=== PATIENT | female | born 1990 | race Caucasian/White ===

== ENCOUNTER → 2021-02-06 10:12 | Outpatient (CLI) | payer OTHER, BC, SELFPAY ==
--- NOTE | ~2021-02-06 | US_ITS ---
EXAMINATION: US thyroid DATE: 02/06/2021 10:31 INDICATION: Nontoxic goiter TECHNIQUE: Multiple ultrasound images of the thyroid were obtained. COMPARISON: None. FINDINGS: The right thyroid lobe measures 4.7 x 1.2 x 1.4 cm. The left thyroid lobe measures 4.3 x 1.2 x 1.8 c m. 1.6 cm solid very hypoechoic nodule in the mid left thyroid which is wider than tall with smooth margins and without echogenic foci. (TI-RADS 4, moderately suspicious , FNA if >=1.5 cm, annual follo wup is >=1 cm). There is diffuse decreased echogenicity and coarsened echotexture throughout the thyr oid with normal vascular flow on color Doppler. IMPRESSION: 1. 1.6 cm TI RADS 4 left thyroid nodule for which ultrasound-guided fine-needle aspiration would be r ecommended. Reviewed, dictated and finalized at location A. TH AND PHYSICAL EDUCATION TEACHER IMPRESSION: 1. 1.6 cm TI RADS 4 left thyroid nodule for which ultrasound-guided fine-needle aspiration would be recommended.
== END ==
PROVIDERS: Visit Provider Internal Medicine Endocrinology, Diabetes & Metabolism
DX: E04.1 Nontoxic single thyroid nodule (principal)
CPT/HCPCS: 76536

== ENCOUNTER → 2021-08-22 15:37 | Outpatient (CLI) | payer OTHER, BC, SELFPAY ==
--- NOTE | ~2021-08-22 | US_ITS ---
EXAMINATION: US transvaginal DATE: 08/22/2021 16:04 INDICATION: Irregular periods. Comparison:No prior studies for comparison. TECHNIQUE: Multiple endovaginal sonographic images of the pelvis performed. FINDINGS: The uterus measures 6.2 x 3 x 3.6 cm. Uterus is retroverted uterus. The endometrial complex measures 3 mm. The right ovary measures 3.1 x 1.9 x 3.3 cm and the left ovary measures 2.4 x 1.8 x 2.4 cm. There ar e small follicles in each ovary. Normal doppler signal in both ovaries. There is no free fluid in the pelvis. There are no abnormal masses seen on either side. IMPRESSION: 1. Unremarkable pelvic ultrasound. Reviewed, dictated and finalized at location A.
== END ==
PROVIDERS: PCP Student in an Organized Health Care Education/Training Program; Visit Provider Internal Medicine Endocrinology, Diabetes & Metabolism
DX: N92.6 Irregular menstruation, unspecified (principal)
CPT/HCPCS: 76830

== ENCOUNTER 2022-01-06 11:58 | Emergency (ER) | payer OTHER, BC, SELFPAY ==
[2022-01-06 12:58] VITALS: BP 138/89; PULSE 85; RESP 18; TEMP 36.7; O2SAT 99
--- NOTE | 2022-01-06 13:25 | ED.URI ---
HPI - URI/Sore Throat General Chief Complaint: Upper Respiratory Infection Stated Complaint: Cough, Sore Throat Time Seen by Provider: 01/06/22 13:25 Source: patient and RN notes reviewed Mode of arrival: ambulatory Limitations: no limitations History of Present Illness HPI Narrative: 31-year-old female presenting for complaint of sinus congestion, cough, and mild sore throat over the last week. She endorses fever at the onset. She denies shortness of breath, wheezing, nausea, vomiting, diarrhea. She is taking [id number] medication for symptoms with minimal relief. MD elicited complaint: cough Related Data Home Medications Medication Instructions Recorded Confirmed cholecalciferol (vitamin D3) 50 50 mcg DAILY 01/06/22 01/06/22 mcg (2,000 unit) capsule (Vitamin D3) cyanocobalamin (vitamin B-12) 1,000 mcg WEEKLY 01/06/22 01/06/22 1,000 mcg/mL injection solution folic acid 1 mg tablet 1 mg PO DAILY 01/06/22 01/06/22 metformin 500 mg tablet,extended 500 mg PO BID 01/06/22 01/06/22 release 24 hr norethindrone 1 mg-ethinyl 1 tablet DAILY 01/06/22 01/06/22 estradiol 10 mcg (24)-iron 10 mcg(2) tablet (Lo Loestrin Fe) omeprazole 20 mg capsule,delayed 20 mg DAILY 01/06/22 01/06/22 release sertraline 50 mg tablet 50 mg DAILY 01/06/22 01/06/22 spironolactone 50 mg tablet 50 mg BID 01/06/22 01/06/22 Allergies Allergy/AdvReac Type Severity Reaction Status Date / Time No Known Allergies Allergy Verified 01/06/22 13:04 Review of Systems Review of Systems: CONSTITUTIONAL: Denies malaise, chills, sweats, fever EYES: Denies visual changes, redness, or discharge ENT: Reports rhinorrhea, congestion, sinus pain, sore throat CARDIOVASCULAR: Denies chest pain, palpitations, edema RESPIRATORY: Reports cough, post nasal drainage. Denies dyspnea GASTROINTESTINAL: Denies abdominal pain, nausea, vomiting, diarrhea SKIN: Denies rash or itching MUSCULOSKELETAL: Denies myalgia PMF Family History Family History Grandparent Family history of thyroid disease Family history of lung cancer Family history of malignant neoplasm of breast Family history of congestive heart failure Family history of heart disease in male family member before age 55 Mother Depression Other Family history of malignant neoplasm of male breast Social History Social History Smoking status: Never smoker Alcohol intake: current Exam Narrative: GENERAL: Ill-appearing, nontoxic EYES: PERRLA, conjunctivae clear ENT: Mucous membranes moist. TMs pearly vera with dull light reflex bilaterally; no tragal tenderness. Oropharynx erythematous without lesions or exudate, no drooling, no hoarseness, no trismus, uvula midline. NECK: Supple. No lymphadenopathy CHEST: Clear to auscultation, breath sounds equal. No wheezing, rhonchi, rales, or stridor. No respiratory distress, speaks in full sentences. HEART: Regular rate and rhythm. No murmur heard. SKIN: Warm, dry, no rash. NEURO: Alert and oriented x3. PSYCH: Normal mood and affect Course Course Emergency Course: Patient is aware of diagnosis, understands and agrees to treatment plan. Anticipatory guidance given. Patient agrees to follow-up as directed and is aware of reasons to seek care at the emergency department. Portions of this record may have been created with voice recognition software Level of Care: Express Care Visit Vital Signs Vital signs: Vital Signs Temperature 98.0 F 01/06/22 12:58 Pulse Rate 85 01/06/22 12:58 Respiratory Rate 18 01/06/22 12:58 Blood Pressure 138/89 01/06/22 12:58 Pulse Oximetry 99 01/06/22 12:58 Oxygen Delivery Room Air 01/06/22 12:58 Temperature 98.0 F 01/06/22 12:58 Pulse Rate 85 01/06/22 12:58 Respiratory Rate 18 01/06/22 12:58 Blood Pressure 138/89 01/06/22 12:58 Pulse Oximetry 99
== END 2022-01-06 13:40 | disposition home or self-care (01) ==
PROVIDERS: Emergency Provider Nurse Practitioner Family; PCP Student in an Organized Health Care Education/Training Program
DX: J06.9 Acute upper respiratory infection, unspecified (principal)
CPT/HCPCS: 99213; G0463

== ENCOUNTER 2022-01-26 18:49 | Emergency (ER) | payer OTHER, BC, SELFPAY ==
--- NOTE | 2022-01-26 18:55 | ED.URI ---
HPI - URI/Sore Throat General Chief Complaint: Upper Respiratory Infection Stated Complaint: uri Time Seen by Provider: 01/26/22 18:55 Source: patient, RN notes reviewed and old records reviewed Mode of arrival: ambulatory Limitations: no limitations History of Present Illness HPI Narrative: 31-year-old female presents to the [facility] with complaints of sinus congestion since Friday, 3 days. Has taken Mucinex. Denies fevers, chest pain, abdominal pain Related Data Home Medications Medication Instructions Recorded Confirmed cholecalciferol (vitamin D3) 50 50 mcg DAILY 01/06/22 01/26/22 mcg (2,000 unit) capsule (Vitamin D3) cyanocobalamin (vitamin B-12) 1,000 mcg WEEKLY 01/06/22 01/26/22 1,000 mcg/mL injection solution folic acid 1 mg tablet 1 mg PO DAILY 01/06/22 01/26/22 metformin 500 mg tablet,extended 500 mg PO BID 01/06/22 01/26/22 release 24 hr norethindrone 1 mg-ethinyl 1 tablet DAILY 01/06/22 01/26/22 estradiol 10 mcg (24)-iron 10 mcg(2) tablet (Lo Loestrin Fe) omeprazole 20 mg capsule,delayed 20 mg DAILY 01/06/22 01/26/22 release sertraline 50 mg tablet 50 mg DAILY 01/06/22 01/26/22 spironolactone 50 mg tablet 50 mg BID 01/06/22 01/26/22 levothyroxine 100 mcg tablet 100 mcg PO DAILY 01/26/22 01/26/22 (Synthroid) Allergies Allergy/AdvReac Type Severity Reaction Status Date / Time No Known Allergies Allergy Verified 01/26/22 18:54 Review of Systems Review of Systems: All systems reviewed & are unremarkable except as noted in HPI and below Constitutional: Constitutional: Reports no additional constitutional complaints Eyes: Eyes: Reports no additional eye complaints ENT: Reports as per HPI and Reports nasal congestion Cardiovascular: Cardiovascular: Reports no additional cardiovascular complaints, Denies chest pain and Denies dyspnea Respiratory: Respiratory: Reports no additional respiratory complaints, Denies chest congestion, Denies cough and Denies dyspnea Gastrointestinal: Gastrointestinal: Reports no additional gastrointestinal complaints, Denies abdominal pain, Denies nausea and Denies vomiting Musculoskeletal: Musculoskeletal: Reports no additional musculoskeletal complaints Integumentary/Breasts: Skin/Breast: Reports system reviewed and no additional complaints, except as docu Neurologic: Reports system reviewed and no additional complaints, except as documented Psychiatric: Psychiatric: Reports no additional psychiatric complaints Allergic/Immunologic: Allergic/Immunologic: Reports no additional allergic/immunologic complaints PMFSH Family History Family History Grandparent Family history of thyroid disease Family history of lung cancer Family history of malignant neoplasm of breast Family history of congestive heart failure Family history of heart disease in male family member before age 55 Mother Depression Other Family history of malignant neoplasm of male breast Social History Social History Smoking status: Never smoker Alcohol intake: current Comments At the time of my signature, I reviewed and agree with the nursing past medical, surgical, social, and family history. There is no relevant family history pertinent to the patient complaint. Exam Const: General: cooperative, healthy appearing, comfortable, no acute distress, well developed, alert and well nourished Nutritional Appearance: well nourished and obese Orientation/consciousness: patient oriented x3 Limitations: no limitations HENMT: Head: normal to inspection Ears: hearing grossly normal bilaterally, external ears normal, EAC's normal and TM abnormal with fluid behind the TM bilateral; not erythematous Face/Nose/Sinus: Normal external nose present, Normal nares present, Normal nasal mucous membranes and turbinates present and normal facial exam Face and sinus: gordon
[2022-01-26 18:57] VITALS: BP 131/84; PULSE 107; RESP 16; TEMP 36.6; O2SAT 99
[2022-01-26 18:59] VITALS: BP 131/84; PULSE 107; RESP 16; TEMP 36.6; O2SAT 99
== END 2022-01-26 19:17 | disposition home or self-care (01) ==
PROVIDERS: Emergency Provider Nurse Practitioner; PCP Student in an Organized Health Care Education/Training Program
DX: J06.9 Acute upper respiratory infection, unspecified (principal); J01.90 Acute sinusitis, unspecified; K21.9 Gastro-esophageal reflux disease without esophagitis; E03.9 Hypothyroidism, unspecified; E28.2 Polycystic ovarian syndrome; F41.9 Anxiety disorder, unspecified; F32.A Depression, unspecified
CPT/HCPCS: 99213; G0463

== ENCOUNTER → 2022-07-27 11:22 | Outpatient (CLI) | payer OTHER, BC, SELFPAY ==
--- NOTE | ~2022-07-27 | US_ITS ---
US thyroid INDICATION: Thyroid nodule. Dane's thyroiditis. TECHNIQUE: Real-time sonographic images of the thyroid gland were obtained. COMPARISON: Ultrasound dated 02/06/2021 FINDINGS: The right thyroid lobe measures 3.6 x 1.5 x 1.9 cm. The left thyroid lobe measures 3.6 x 1 .7 x 1.6 cm. There is normal echotexture and echogenicity throughout the thyroid gland. There is a le ft thyroid lobe nodule which is solid, hypoechoic, wider than tall, circumscribed margins and no echo genic foci measuring 11 x 11 x 9 mm, TR 4. This is decreased in size compared with prior study. Brit l vascular flow is present. IMPRESSION: 1. Left thyroid mass measures 11 mm, TR 4. Follow-up ultrasound in 12 months recommended. Reviewed, dictated and finalized at location A. IMPRESSION: 1. Left thyroid mass measures 11 mm, TR 4. Follow-up ultrasound in 12 months r ecommended.
== END ==
PROVIDERS: PCP Internal Medicine Endocrinology, Diabetes & Metabolism; Visit Provider Internal Medicine Endocrinology, Diabetes & Metabolism
DX: E04.1 Nontoxic single thyroid nodule (principal)
CPT/HCPCS: 76536

== ENCOUNTER 2022-12-11 09:13 | Emergency (ER) | payer OTHER, BC, SELFPAY ==
--- NOTE | 2022-12-11 09:27 | ED.EYEPROB ---
HPI - Eye Problem General Chief complaint: Eye Problems Stated complaint: Eyes Irritation Time Seen by Provider: 12/11/22 09:28 Source: patient Mode of arrival: ambulatory Limitations: no limitations History of Present Illness HPI Narrative: Michelle is a 32-year-old female patient presenting to the clinic today with complaints of bilateral eye irritation. She reports symptoms just started this morning. Reports that her son and her both have pinkeye at home. Reports she woke up this morning with her eyes matted shut with some green drainage. Eyes are irritated. Visual acuity completed and was 20/20. She denies using contacts Related Data Home Medications Medication Instructions Recorded Confirmed cholecalciferol (vitamin D3) 50 50 mcg DAILY 01/06/22 01/26/22 mcg (2,000 unit) capsule (Vitamin D3) cyanocobalamin (vitamin B-12) 1,000 mcg WEEKLY 01/06/22 01/26/22 1,000 mcg/mL injection solution folic acid 1 mg tablet 1 mg PO DAILY 01/06/22 01/26/22 metformin 500 mg tablet,extended 500 mg PO BID 01/06/22 01/26/22 release 24 hr norethindrone 1 mg-ethinyl 1 tablet DAILY 01/06/22 01/26/22 estradiol 10 mcg (24)-iron 10 mcg(2) tablet (Lo Loestrin Fe) omeprazole 20 mg capsule,delayed 20 mg DAILY 01/06/22 01/26/22 release sertraline 50 mg tablet 50 mg DAILY 01/06/22 01/26/22 spironolactone 50 mg tablet 50 mg BID 01/06/22 01/26/22 levothyroxine 100 mcg tablet 100 mcg PO DAILY 01/26/22 01/26/22 (Synthroid) Allergies Allergy/AdvReac Type Severity Reaction Status Date / Time No Known Allergies Allergy Verified 01/26/22 18:54 Review of Systems Review of Systems: Pertinent positives per HPI. Patient denies any fever, chills, rash, headache, visual changes, dizziness, cough, runny nose, sore throat, shortness of breath, chest pain, palpitations, nausea, vomiting, diarrhea, constipation, abdominal pain, or any urinary issues. [facility] Family History Family History Grandparent Family history of thyroid disease Family history of lung cancer Family history of malignant neoplasm of breast Family history of congestive heart failure Family history of heart disease in male family member before age 55 Mother Depression Other Family history of malignant neoplasm of male breast Social History Social History Smoking status: Never smoker Alcohol intake: current Comments At the time of my signature, I reviewed and agree with the nursing past medical, surgical, social, and family history. There is no relevant family history pertinent to the patient complaint. Exam Narrative: General: Well-developed, well nourished, in no apparent distress Head: Normocephalic, atraumatic Eyes: Pupils equally round and reactive to light bilaterally, EOM intact, sclera and conjunctive injected with green mucopurulent discharge, lids normal Ears: TMs intact and clear, ear canals clear, no drainage, grossly hearing normal. Nose: Nares patent, no discharge, no inflammation, no sinus tenderness. Mouth: Oropharynx without lesions or masses, good dentition, MMM. Neck: Supple, trachea midline, no enlargement of anterior or posterior cervical nodes, no thyroid masses or goiter palpable. Cardio: Regular rate and rhythm, s1 and s2 normal, no murmur appreciated. Resp: Clear to auscultation bilaterally anteriorly and posteriorly, no rhonchi, rales, wheezing or rubs Course Course Emergency Course: Portions of this record may have been created with voice recognition software. Level of Care: Express Care Visit Vital Signs Vital signs: Vital signs reviewed MDM - Eye Problem MDM Narrative Medical decision making narrative: At the time of visit patient is resting comfortably on the exam table. I suspect patient has bacterial conjunctivitis. Prescription for tobramycin eyedrops was sent to th
[2022-12-11 09:28] VITALS: BP 128/77; PULSE 78; RESP 16; TEMP 36.9; O2SAT 99
== END 2022-12-11 09:35 | disposition home or self-care (01) ==
PROVIDERS: Emergency Provider Nurse Practitioner Family; PCP Student in an Organized Health Care Education/Training Program
DX: H10.9 Unspecified conjunctivitis (principal)
CPT/HCPCS: 99213; G0463

== ENCOUNTER 2023-09-15 15:13 | Emergency (ER) | payer OTHER, BC, SELFPAY ==
[2023-09-15 15:27] VITALS: BP 135/84; PULSE 110; RESP 16; TEMP 36.7; O2SAT 99
--- NOTE | 2023-09-15 15:48 | ED.URI ---
HPI - URI/Sore Throat General Chief Complaint: Upper Respiratory Infection Stated Complaint: head pressure,Vásquez,cough Time Seen by Provider: 09/15/23 15:38 Source: patient and RN notes reviewed Mode of arrival: ambulatory Limitations: no limitations History of Present Illness HPI Narrative: Patient presents today with a 2 day history of nasal congestion and sinus pressure, headache, cough, sore throat, chest congestion. Denies fever shortness of breath. Currently rates her pain 4/10 and has tried Sudafed, Tylenol, and Excedrin without much relief. Denies any known sick contacts. Related Data Home Medications Medication Instructions Recorded Confirmed cholecalciferol (vitamin D3) 50 50 mcg DAILY 01/06/22 09/15/23 mcg (2,000 unit) capsule (Vitamin D3) cyanocobalamin (vitamin B-12) 1,000 mcg WEEKLY 01/06/22 09/15/23 1,000 mcg/mL injection solution folic acid 1 mg tablet 1 mg PO DAILY 01/06/22 09/15/23 metformin 500 mg tablet,extended 500 mg PO BID 01/06/22 09/15/23 release 24 hr norethindrone 1 mg-ethinyl 1 tablet DAILY 01/06/22 09/15/23 estradiol 10 mcg (24)-iron 10 mcg(2) tablet (Lo Loestrin Fe) omeprazole 20 mg capsule,delayed 20 mg DAILY 01/06/22 09/15/23 release sertraline 50 mg tablet 50 mg DAILY 01/06/22 09/15/23 spironolactone 50 mg tablet 50 mg BID 01/06/22 09/15/23 levothyroxine 100 mcg tablet 100 mcg PO DAILY 01/26/22 09/15/23 (Synthroid) Allergies Allergy/AdvReac Type Severity Reaction Status Date / Time No Known Allergies Allergy Verified 01/26/22 18:54 Review of Systems Review of Systems: CONSTITUTIONAL: Denies body aches, fever, chills, or sweats. EYES: Denies visual changes, redness, or discharge. ENT: Denies rhinorrhea, or otalgia.+ congestion, sore throat CARDIOVASCULAR: Denies chest pain, palpitations, or edema. RESPIRATORY: Denies dyspnea.+ cough, chest congestion GASTROINTESTINAL: Denies abdominal pain, nausea, vomiting, or diarrhea. GENITOURINARY: Denies dysuria or hematuria. SKIN: Denies rash, itching, or wounds. MUSCULOSKELETAL: Denies back pain, joint pain, or myalgia. NEUROLOGIC: Denies numbness, tingling, or weakness.+ headache PSYCH: Denies depression or anxiety. [facility] Family History Family History Grandparent Family history of thyroid disease Family history of lung cancer Family history of malignant neoplasm of breast Family history of congestive heart failure Family history of heart disease in male family member before age 55 Mother Depression Other Family history of malignant neoplasm of male breast Social History Social History Smoking status: Never smoker Alcohol intake: current Comments At time of signature, I have reviewed and agree with nursing past medical, surgical, social and family history unless otherwise noted. Please see nursing chart for further information. There is no relevant family history pertinent to the presenting complaint Exam Narrative: GENERAL: Mildly ill-appearing, well-nourished, and in no acute distress. HEAD: Normocephalic, atraumatic. EYES: EOMI. No redness or drainage. Conjunctivae normal. ENT: Mucous membranes pink and moist. Nares congested with rhinorrhea. TMs normal bilaterally. Throat normal. Uvula midline. NECK: Normal AROM. Supple. No lymphadenopathy. CHEST: No respiratory distress. Clear to auscultation. HEART: Regular rate and rhythm. No murmur appreciated. EXTREMITIES: Normal range of motion. No edema. SKIN: Warm, dry, no rash. Capillary refill normal. Normal skin turgor. NEURO: No focal deficits. Alert and oriented x3. Gait steady. PSYCH: Normal affect. No signs of depression or anxiety. Course Course Level of Care: Express Care Visit Vital Signs Vital signs: Vital Signs Temperature 98.0 F 09/15/23 15:27 Pulse Rate 110 H 09/15/23 15:27 Resp
[2023-09-15 15:53] LABS: EDINFLUASCREEN Negative; EDINFLUBSCREEN Negative
[2023-09-15 16:01] LABS: EDSTREPNEGPOS1 Presumptive Negative
== END 2023-09-15 16:19 | disposition home or self-care (01) ==
PROVIDERS: Emergency Provider Nurse Practitioner; PCP Student in an Organized Health Care Education/Training Program
DX: J06.9 Acute upper respiratory infection, unspecified (principal); Z20.822 Contact with and (suspected) exposure to COVID-19; K21.9 Gastro-esophageal reflux disease without esophagitis; E03.9 Hypothyroidism, unspecified; E28.2 Polycystic ovarian syndrome; Z98.84 Bariatric surgery status; F41.9 Anxiety disorder, unspecified; F32.A Depression, unspecified
CPT/HCPCS: 87081; 87426; 87804; 87880; 99213; G0463

== ENCOUNTER 2023-12-06 10:08 | Emergency (ER) | payer OTHER, BC, SELFPAY ==
[2023-12-06 10:16] VITALS: BP 125/89; PULSE 94; RESP 20; TEMP 36.6; O2SAT 98
--- NOTE | 2023-12-06 10:26 | ED_ITS ---
HPI - URI/Sore Throat General Chief Complaint: Upper Respiratory Infection Stated Complaint: Sore throat Time Seen by Provider: 12/06/23 10:27 Source: patient, RN notes reviewed and old records reviewed Mode of arrival: ambulatory Limitations: no limitations History of Present Illness HPI Narrative: Patient with complaints of sore throat for 3 days, worsening. She reports that she has been taking TheraFlu, ibuprofen. She denies any fever, chills, sweats, runny nose, headache, cough. 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 Her 5-year-old daughter has also been sick. Patient has hoarse voice. Reports that pain is much worse with swallowing. Says she is having difficulty swallowing secondary to pain. She is managing own secretions, no drooling or stridor noted. Related Data Home Medications Medication Instructions Recorded Confirmed cholecalciferol (vitamin D3) 50 50 mcg DAILY 01/06/22 12/06/23 mcg (2,000 unit) capsule (Vitamin D3) cyanocobalamin (vitamin B-12) 1,000 mcg IM WEEKLY 01/06/22 12/06/23 1,000 mcg/mL injection solution folic acid 1 mg tablet 1 mg PO DAILY 01/06/22 12/06/23 metformin 500 mg tablet,extended 500 mg PO BID 01/06/22 12/06/23 release 24 hr norethindrone 1 mg-ethinyl 1 tablet PO DAILY 01/06/22 12/06/23 estradiol 10 mcg (24)-iron 10 mcg(2) tablet (Lo Loestrin Fe) omeprazole 20 mg capsule,delayed 20 mg PO DAILY 01/06/22 12/06/23 release sertraline 50 mg tablet 50 mg DAILY 01/06/22 12/06/23 spironolactone 50 mg tablet 50 mg PO BID 01/06/22 12/06/23 levothyroxine 100 mcg tablet 100 mcg PO DAILY 01/26/22 12/06/23 (Synthroid) phentermine 30 mg capsule 30 mg PO DAILY 12/06/23 12/06/23 tacrolimus 0.1 % topical ointment 0.1 applic topical DAILY 12/06/23 12/06/23 Allergies Allergy/AdvReac Type Severity Reaction Status Date / Time No Known Allergies Allergy Verified 12/06/23 10:09 Review of Systems Review of Systems: All systems reviewed & are unremarkable except as noted in HPI and below Constitutional: Constitutional: Reports no additional constitutional complaints ENT: Reports system reviewed and no additional complaints, except as documented, Reports as per HPI, Reports change in voice and Reports sore throat Cardiovascular: Cardiovascular: Reports no additional cardiovascular complaints Respiratory: Respiratory: Reports no additional respiratory complaints Gastrointestinal: Gastrointestinal: Reports no additional gastrointestinal complaints PMF Family History Family History Grandparent Family history of thyroid disease Family history of lung cancer Family history of malignant neoplasm of breast Family history of congestive heart failure Family history of heart disease in male family member before age 55 Mother Depression Other Family history of malignant neoplasm of male breast Social History Social History Smoking status: Never smoker Alcohol intake: current Comments At the time of my signature, I reviewed and agree with the nursing past medical, surgical, social, and family history. There is no relevant family history pertinent to the patient complaint. Exam Const: General: cooperative, no acute distress, alert and awake Orientation/consciousness: oriented to person, oriented to place and oriented to time HENMT: Head: normal to inspection Ears: TM's normal bilaterally Face/Nose/Sinus: No nasal discharge present Throat: posterior oropharynx abnormal erythema and tonsils absent Resp: Effort & Inspection: normal respiratory effort and able to speak in complete sentences Auscultation: clear to auscultation bilaterally, no crackles, no rales, no rhonchi and no wheezes Cardio: Palpation: normal PMI Rate: regular rate Rhythm: regular rhythm Heart sounds: S1 normal heart sound present and S2 normal heart sound present Neuro: General: oriented to person, oriented to place and oriented to time Cranial nerves: Yes CN's II-XII intact bilaterally Psych: Appearance: grossly normal Thought process: Normal thought process present Insight: Good insight present (Psych) Judgement: Good judgement pr esent (Psych) Course Course Level of Care: Express Care Visit Vital Signs Vital signs: Vital Signs Temperature 97.9 F 12/06/23 10:16 Pulse Rate 94 12/06/23 10:16 Respiratory Rate 20 12/06/23 10:16 Blood Pressure 125/89 12/06/23 10:16 Pulse Oximetry 98 12/06/23 10:16 Oxygen Delivery Room Air 12/06/23 10:16 Temperature 97.9 F 12/06/23 10:16 Pulse Rate 94 12/06/23 10:16 Respiratory Rate 20 12/06/23 10:16 Blood Pressure 125/89 12/06/23 10:16 Pulse Oximetry 98 12/06/23 10:16 Oxygen Delivery Room Air 12/06/23 10:16 Reviewed MDM - URI/Sore Throat MDM Narrative Medical decision making narrative: Patient not in any acute distress, and is nontoxic appearing, but she does appear very uncomfortable. Throat very red. No blisters noted. She has been trying [id number] remedies with no relief. Will start short steroid burst to see if this gives her relief. Follow with primary care provider. Emergency department for new or worsening symptoms. Her strep today was negative culture pending. Discharge instructions reviewed with patient, as well as provided in writing per nursing staff. The instructions also include specific and strict return/GO TO THE ER as well as f/u information. All questions have been answered, and the patient deny any further questions with discharge and discharge plan. Some parts of this dictation were generated by voice recognition software and may contain typographical and/or grammatical inaccuracies. Differential Diagnosis Differential diagnosis: Likely upper respiratory infection, otitis media, viral infection and pharyngitis Lab Data Attestation: I reviewed the patient's lab results. Lab results narrative: Negative strep, culture pending Discharge Plan Discharge Clinical Impression: Viral infection Patient Disposition: Home, Self-Care Condition: Stable Instructions: Antibiotic Form, Viral Syndrome (ED) Additional Instructions: Push fluids, get plenty of rest. Take medications as prescribed. Follow with primary care provider. Emergency department for new or worse symptoms Patient Language: Algerian Prescriptions: New prednisone 50 mg tablet 50 mg PO DAILY Qty: 5 0RF No Action cyanocobalamin (vitamin B-12) 1,000 mcg/mL solution 1,000 mcg IM WEEKLY omeprazole 20 mg capsule,delayed release(DR/EC) 20 mg PO DAILY folic acid 1 mg Tablet 1 mg PO DAILY metformin 500 mg tablet extended release 24 hr 500 mg PO BID sertraline 50 mg tablet 50 mg DAILY spironolactone 50 mg tablet 50 mg PO BID cholecalciferol (vitamin D3) [Vitamin D3] 50 mcg (2,000 unit) capsule 50 mcg DAILY Lo Loestrin Fe 1 mg-10 mcg (24)/10 mcg (2) tablet 1 tablet PO DAILY phentermine 30 mg capsule 30 mg PO DAILY tacrolimus 0.1 % ointment 0.1 applic TOPICAL DAILY levothyroxine [Synthroid] 100 mcg tablet 100 mcg PO DAILY Follow-up/Referrals: Joel,Gretta Martell MD [Primary Care Provider] - 1 Week Time of Disposition: 10:46
[2023-12-06 10:35] LABS: EDSTREPNEGPOS1 Negative (Negative)
== END 2023-12-06 10:50 | disposition home or self-care (01) ==
PROVIDERS: Emergency Provider Nurse Practitioner Family; PCP Internal Medicine Endocrinology, Diabetes & Metabolism
DX: B34.9 Viral infection, unspecified (principal); Z79.899 Other long term (current) drug therapy; Z79.84 Long term (current) use of oral hypoglycemic drugs
CPT/HCPCS: 87081; 87880; 99213; G0463

== ENCOUNTER 2024-03-20 17:57 | Emergency (ER) | payer OTHER, SELFPAY ==
[2024-03-20 18:10] VITALS: BP 140/84; PULSE 102; RESP 16; TEMP 36.7; O2SAT 99
--- NOTE | 2024-03-20 18:15 | ED_ITS ---
HPI - URI/Sore Throat General Chief Complaint: Upper Respiratory Infection Stated Complaint: sore throat,achy,FRAIRE Time Seen by Provider: 03/20/24 18:15 Source: patient, RN notes reviewed and old records reviewed Mode of arrival: ambulatory Limitations: no limitations History of Present Illness HPI Narrative: Patient presents with complaints of sore throat, headache, body aches. She reports symptoms have been present for 3 days. 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 Reports that her current symptoms feel like her typical strep throat. She has been taking o igs-bii-qwmuudk medications for her symptoms with moderate relief. Able to manage her own secretions, no drooling or stridor Related Data Home Medications ?Medication ?Instructions ?Recorded ?Confirmed ?Last Taken ?Type cholecalciferol (vitamin D3) 50 50 mcg DAILY 01/06/22 12/06/23 Unknown History mcg (2,000 unit) capsule (Vitamin D3) cyanocobalamin (vitamin B-12) 1,000 mcg IM WEEKLY 01/06/22 12/06/23 Unknown History 1,000 mcg/mL injection solution folic acid 1 mg tablet 1 mg PO DAILY 01/06/22 12/06/23 Unknown History metformin 500 mg tablet,extended 500 mg PO BID 01/06/22 12/06/23 Unknown History release 24 hr omeprazole 20 mg capsule,delayed 20 mg PO DAILY 01/06/22 12/06/23 Unknown Histor y release sertraline 50 mg tablet 50 mg DAILY 01/06/22 12/06/23 Unknown History spironolactone 50 mg tablet 50 mg PO BID 01/06/22 12/06/23 Unknown History levothyroxine 100 mcg tablet 100 mcg PO DAILY 01/26/22 12/06/23 Unknown History (Synthroid) tacrolimus 0.1 % topical ointment 0.1 applic topical DAILY 12/06/23 12/06/23 Unknown History norethindrone acetate 1 mg-ethinyl tablet 03/20/24 Unknown History estradiol 20 mcg tablet tirzepatide (weight loss) 2.5 mg subcut 03/20/24 Unknown History mg/0.5 mL subcutaneous pen injector (Zepbound) Allergies Allergy/AdvReac Type Severity Reaction Status Date / Time No Known Allergies Allergy Verified 03/20/24 18:00 Review of Systems Review of Systems: All systems reviewed & are unremarkable except as noted in HPI and below Constitutional: Constitutional: Reports no additional constitutional complaints and Reports headache(s) ENT: Reports system reviewed and no additional complaints, except as documented and Reports sore throat Cardiovascular: Cardiovascular: Reports no additional cardiovascular complaints Respiratory: Respiratory: Reports no additional respiratory complaints and Reports cough Gastrointestinal: Gastrointestinal: Reports no additional gastrointestinal complaints PMF Family History Family History Grandparent Family history of thyroid disease Family history of lung cancer Family history of malignant neoplasm of breast Family history of congestive heart failure Family history of heart disease in male family member before age 55 Mother Depression Other Family history of malignant neoplasm of male breast Social History Social History Smoking status: Never smoker Alcohol intake: current Comments At the time of my signature, I reviewed and agree with the nursing past medical, surgical, social, and family history. There is no relevant family history pertinent to the patient complaint. Exam Const: General: cooperative, no acute distress, alert and awake Orientation/consciousness: oriented to person, oriented to place and oriented to time HENMT: Head: normal to inspection Ears: TM's normal bilaterally Mouth: Yes moist mucous membranes Throat: abnormal tonsil bilateral erythema and hypertrophy 2+ and posterior oropharynx abnormal erythema Resp: Effort & Inspection: normal respiratory effort and able to speak in complete sentences Auscultation: clear to auscultation bilaterally, no crackles, no rales, no rhonchi and no wheezes Cardio: Palpation: normal PMI Rate: regular rate Rhythm: regular rhythm Heart sounds: S1 normal heart sound present and S2 normal heart sound present Neuro: General: oriented to person, oriented to place and oriented to time Cranial nerves: Yes CN's II-XII intact bilaterally Psych: Appearance: grossly normal Thought process: Normal thought process present Insight: Good insight present (Psych) Judgement: Good judgement present (Psych) Course Course Level of Care: Express Care Visit Vital Signs Vital signs: Vital Signs Temperature 98.0 F 03/20/24 18:10 Pulse Rate 102 H 03/20/24 18:10 Respiratory Rate 16 03/20/24 18:10 Blood Pressure 140/84 03/20/24 18:10 Pulse Oximetry 99 03/20/24 18:10 Oxygen Delivery Room Air 03/20/24 18:10 Temperature 98.0 F 03/20/24 18:10 Pulse Rate 102 H 03/20/24 18:10 Respiratory Rate 16 03/20/24 18:10 Blood Pressure 140/84 03/20/24 18:10 Pulse Oximetry 99 03/20/24 18:10 Oxygen Delivery Room Air 03/20/24 18:10 Reviewed MDM - URI/Sore Throat MDM Narrative Medical decision making narrative: Positive rapid strep. Patient nontoxic appearing, stable for discharge home on p.o. antibiotic therapy. Discharge instructions reviewed with patient, as well as provided in writing per nursing staff. The instructions also include specific and strict return/GO TO THE ER as well as f/u information. All questions have been answered, and the patient deny any further questions with discharge and discharge plan. Some parts of this dictation were generated by voice recognition software and may contain typographical and/or grammatical inaccuracies. Differential Diagnosis Differential diagnosis: Likely upper respiratory infection, otitis media, viral infection, influenza and pharyngitis Medical Records Attestation: I reviewed the patient's medical records. Lab Data Attestation: I reviewed the patient's lab results. Discharge Plan Discharge Clinical Impression: Pharyngitis Qualifiers: Pharyngitis/tonsillitis etiology: streptococcus Qualified Code(s): J02.0 - Streptococcal pharyngitis Patient Disposition: Home, Self-Care Condition: Stable Instructions: Antibiotic Form Additional Instructions: Take medications as prescribed. Follow-up with primary care provider. Emergency department for any new or worse symptoms Patient Language: [place] Prescriptions: New penicillin V potassium 500 mg tablet 500 mg PO Q12H 10 Days Qty: 20 0RF No Action cyanocobalamin (vitamin B-12) 1,000 mcg/mL solution 1,000 mcg IM WEEKLY omeprazole 20 mg capsule,delayed release(DR/EC) 20 mg PO DAILY folic acid 1 mg Tablet 1 mg PO DAILY metformin 500 mg tablet extended release 24 hr 500 mg PO BID sertraline 50 mg tablet 50 mg DAILY spironolactone 50 mg tablet 50 mg PO BID cholecalciferol (vitamin D3) [Vitamin D3] 50 mcg (2,000 unit) capsule 50 mcg DAILY tacrolimus 0.1 % ointment 0.1 applic TOPICAL DAILY norethindrone ac-eth estradiol 1-20 mg-mcg tablet Zepbound 2.5 mg/0.5 mL pen injector SUBCUT levothyroxine [Synthroid] 100 mcg tablet 100 mcg PO DAILY Follow-up/Referrals: Joel,Gretta Martell MD [Primary Care Provider] - 2 Weeks Time of Disposition: 18:49
[2024-03-20 18:39] LABS: EDINFLUASCREEN Negative (Negative); EDINFLUBSCREEN Negative (Negative); EDSTREPNEGPOS1 Positive (Negative)
[2024-03-20 18:41] LABS: EDCOVIDSCREEN Negative (Negative)
== END 2024-03-20 19:00 | disposition home or self-care (01) ==
PROVIDERS: Emergency Provider Nurse Practitioner Family; PCP Internal Medicine Endocrinology, Diabetes & Metabolism
DX: J02.0 Streptococcal pharyngitis (principal); Z20.822 Contact with and (suspected) exposure to COVID-19; E03.9 Hypothyroidism, unspecified; E28.2 Polycystic ovarian syndrome; F41.9 Anxiety disorder, unspecified; F32.A Depression, unspecified; K21.9 Gastro-esophageal reflux disease without esophagitis; Z98.84 Bariatric surgery status; D51.9 Vitamin B12 deficiency anemia, unspecified; E55.9 Vitamin D deficiency, unspecified
CPT/HCPCS: 87426; 87804; 87880; 99213; G0463

== ENCOUNTER 2024-07-05 14:51 | Emergency (ER) | payer OTHER, SELFPAY ==
[2024-07-05 14:57] VITALS: BP 123/75; PULSE 87; RESP 20; TEMP 36.8; O2SAT 99
--- NOTE | 2024-07-05 14:58 | ED.URI ---
HPI - URI/Sore Throat General Chief Complaint: Upper Respiratory Infection Stated Complaint: sinus congestion Time Seen by Provider: 07/05/24 14:58 Source: patient, RN notes reviewed and old records reviewed Mode of arrival: ambulatory Limitations: no limitations History of Present Illness HPI Narrative: 33-year-old female presents to the [facility] with sinus congestion, pain and pressure. States that she also developed a cough. Symptoms started over a week ago. Has been taking tlny-wdn-[id number] medications with no relief. Denies any fevers. Onset (ago): week(s) (Over 1 week) Related Data Home Medications ?Medication ?Instructions ?Recorded ?Confirmed ?Last Taken ?Type cholecalciferol (vitamin D3) 50 50 mcg DAILY 01/06/22 12/06/23 Unknown History mcg (2,000 unit) capsule (Vitamin D3) cyanocobalamin (vitamin B-12) 1,000 mcg IM WEEKLY 01/06/22 12/06/23 Unknown History 1,000 mcg/mL injection solution folic acid 1 mg tablet 1 mg PO DAILY 01/06/22 12/06/23 Unknown History metformin 500 mg tablet,extended 500 mg PO BID 01/06/22 12/06/23 Unknown History release 24 hr omeprazole 20 mg capsule,delayed 20 mg PO DAILY 01/06/22 12/06/23 Unknown History release sertraline 50 mg tablet 50 mg DAILY 01/06/22 12/06/23 Unknown History spironolactone 50 mg tablet 50 mg PO BID 01/06/22 12/06/23 Unknown History levothyroxine 100 mcg tablet 100 mcg PO DAILY 01/26/22 12/06/23 Unknown History (Synthroid) tacrolimus 0.1 % topical ointment 0.1 applic topical DAILY 12/06/23 12/06/23 Unknown History norethindrone acetate 1 mg-ethinyl tablet 03/20/24 Unknown History estradiol 20 mcg tablet tirzepatide (weight loss) 2.5 mg subcut 03/20/24 Unknown History mg/0.5 mL subcutaneous pen injector (Zepbound) atorvastatin 20 mg tablet mg 07/05/24 Unknown History tirzepatide (weight loss) 5 mg/0.5 mg subcut 07/05/24 Unknown History mL subcutaneous pen injector (Zepbound) Allergies Allergy/AdvReac Type Severity Reaction Status Date / Time No Known Allergies Allergy Verified 07/05/24 14:53 Review of Systems Review of Systems: All systems reviewed & are unremarkable except as noted in HPI and below Constitutional: Constitutional: Reports no additional constitutional complaints ENT: Reports as per HPI Cardiovascular: Cardiovascular: Reports no additional cardiovascular complaints, Denies chest pain and Denies dyspnea Respiratory: Respiratory: Reports no additional respiratory complaints, Denies chest congestion, Denies cough and Denies dyspnea Musculoskeletal: Musculoskeletal: Reports no additional musculoskeletal complaints Integumentary/Breasts: Skin/Breast: Reports system reviewed and no additional complaints, except as docu PMFSH Family History Family History Grandparent Family history of thyroid disease Family history of lung cancer Family history of malignant neoplasm of breast Family history of congestive heart failure Family history of heart disease in male family member before age 55 Mother Depression Other Family history of malignant neoplasm of male breast Social History Social History Smoking status: Never smoker Alcohol intake: current Comments At the time of my signature, I reviewed and agree with the nursing past medical, surgical, social, and family history. There is no relevant family history pertinent to the patient complaint. Exam Const: General: cooperative, healthy appearing, comfortable, no acute distress, well developed, alert and well nourished Nutritional Appearance: well nourished Orientation/consciousness: patient oriented x3 Limitations: no limitations HENMT: Head: normal to inspection Ears: hearing grossly normal bilaterally, external ears normal, TM's normal bilaterally, EAC's normal, mastoids normal and no periauricular adenopathy Face/Nose/Sinus: Normal external nose present, Normal nares present and No nasal discharge present Mouth: Yes Normal oral and palatal mucosa present, Yes lip normal, Yes tongue normal and Yes moist mucous membranes Throat: posterior oropharynx normal, uvula midline, postnasal drainage and no uvular edema Eyes: General: appearance normal, both eyes and all related structures Alignment and Position: alignment normal Neck: Neck: normal visual inspection, full ROM, no lymphadenopathy and no meningeal signs Chest: Chest palpation & inspection: normal inspection of the chest Resp: Effort & Inspection: normal respiratory effort and able to speak in complete sentences Auscultation: clear to auscultation bilaterally, no crackles, no rales, no rhonchi and no wheezes Cardio: Rate: regular rate Skin: General skin exam: normal color and no rashes or lesions noted Neuro: General: patient oriented x3, gait normal, moves all extremities and no meningeal signs Cognition (Neuro): normal cognition Speech: normal speech Gait exam (Neuro): Normal gait present Extrem: General: normal to inspection, full ROM, capillary refill normal and normal gait Psych: Appearance: grossly normal and well kempt Mental Status: mental status grossly normal Speech and movement: Normal speech and movement present and Clear speech present Affect: normal affect Attitude: cooperative Course Course Level of Care: Express Care Visit Vital Signs Vital signs: Vital Signs Temperature 98.2 F 07/05/24 14:57 Pulse Rate 87 07/05/24 14:57 Respiratory Rate 20 07/05/24 14:57 Blood Pressure 123/75 07/05/24 14:57 Pulse Oximetry 99 07/05/24 14:57 Oxygen Delivery Room Air 07/05/24 14:57 Temperature 98.2 F 07/05/24 14:57 Pulse Rate 87 07/05/24 14:57 Respiratory Rate 20 07/05/24 14:57 Blood Pressure 123/75 07/05/24 14:57 Pulse Oximetry 99 07/05/24 14:57 Oxygen Delivery Room Air 07/05/24 14:57 Reviewed MDM - URI/Sore Throat MDM Narrative Medical decision making narrative: Patient sitting in exam room. Nontoxic, vitals are stable. Patient presents with sinus pressure and pain for over 1 week. Will cover with an antibiotic, discussed probability of viral, xknt-swm-kvpisfj products or extremely important. Patient verbalized understanding. Discharge instructions reviewed with patient, as well as provided in writing per nursing staff. The instructions also include specific and strict return/GO TO THE ER as well as f/u information. All questions have been answered, and the patient deny any further questions with discharge and discharge plan. Some parts of this dictation were generated by voice recognition software and may contain typographical and/or grammatical inaccuracies. Differential Diagnosis Differential diagnosis: Likely upper respiratory infection, otitis media, sinusitis, viral infection, bronchitis, influenza and pharyngitis Critical Care Time Critical Care Time Critical Care Time: No Discharge Plan Discharge Clinical Impression: Sinusitis Qualifiers: Sinusitis location: pansinusitis Chronicity: acute Recurrence: not specified as recurrent Qualified Code(s): J01.40 - Acute pansinusitis, unspecified Patient Disposition: Home Condition: Stable Instructions: Antibiotic Form, Sinusitis (ED) Additional Instructions: It is very important to treat your symptoms. Drink plenty of water, Gatorade, Pedialyte, ice pops or Jell-O. -Alternate Tylenol and Motrin per package directions for fever or pain. You can alternate every 4 hours -Antihistamine medication such as Zyrtec/Claritin/Corrine during the day can help improve symptoms. -doing daily nasal irrigations can help relieve pressure your sinuses. Things like a Neti pot -Use Flonase twice a day for 5 days then daily to help reduce the inflammation and dry up your sinuses. -You can also use Mucinex. Be sure to drink plenty of water with this medication at least 8 ounces with every dose and it is important to drink 8 to 10 glasses of water per day. Water is a natural decongestant -Frequent hand washing or hand golf club manager is one of the best ways to prevent spread of infection. -Using a vaporizer or humidifier at night will also help thin secretions and help with coughing up phlegm. -Follow up with primary care provider in 7-10 days if condition is not improving - For new or worsening symptoms go directly to the nearest ER Patient Language: Somali Prescriptions: New doxycycline monohydrate 100 mg tablet 100 mg PO BID Qty: 14 0RF No Action cyanocobalamin (vitamin B-12) 1,000 mcg/mL solution 1,000 mcg IM WEEKLY omeprazole 20 mg capsule,delayed release(DR/EC) 20 mg PO DAILY folic acid 1 mg Tablet 1 mg PO DAILY metformin 500 mg tablet extended release 24 hr 500 mg PO BID sertraline 50 mg tablet 50 mg DAILY spironolactone 50 mg tablet 50 mg PO BID cholecalciferol (vitamin D3) [Vitamin D3] 50 mcg (2,000 unit) capsule 50 mcg DAILY tacrolimus 0.1 % ointment 0.1 applic TOPICAL DAILY norethindrone ac-eth estradiol 1-20 mg-mcg tablet Zepbound 2.5 mg/0.5 mL pen injector SUBCUT atorvastatin 20 mg tablet Zepbound 5 mg/0.5 mL pen injector SUBCUT levothyroxine [Synthroid] 100 mcg tablet 100 mcg PO DAILY Follow-up/Referrals: PHYSICIAN,ENTERPRISE PROJECT MANAGER [Primary Care Provider] - Time of Disposition: 15:07
== END 2024-07-05 15:10 | disposition home or self-care (01) ==
PROVIDERS: Emergency Provider Nurse Practitioner
DX: J01.40 Acute pansinusitis, unspecified (principal); K21.9 Gastro-esophageal reflux disease without esophagitis; E11.9 Type 2 diabetes mellitus without complications; Z79.84 Long term (current) use of oral hypoglycemic drugs; E03.9 Hypothyroidism, unspecified; E28.2 Polycystic ovarian syndrome; F41.9 Anxiety disorder, unspecified; F32.A Depression, unspecified
CPT/HCPCS: 99213; G0463

== ENCOUNTER 2024-11-15 09:07 | Outpatient (CLI) | payer OTHER, SELFPAY ==
--- NOTE | ~2024-11-15 | MR_ITS ---
EXAMINATION: MR ankle RT wo con DATE: 11/15/2024 10:28 INDICATION: Spontaneous rupture flexor tendon TECHNIQUE: Magnetic resonance imaging (MRI) of the right ankle was performed without intravenous contrast. Sequences included sagittal, coronal, and axial proton-density weighted fast spin echo without and with fat saturation. COMPARISON: None. FINDINGS: Medial ankle ligaments: The superficial deltoid ligament as well as the spring ligament are normal. There is a tiny heterotopic ossicle within the deep deltoid ligament which demonstrates loss of the normally more well-defined striated pattern consistent with likely sequela of chronic sprain. Lateral ankle ligaments: The anterior and posterior inferior tibiofibular ligaments are normal. Prominent thickening and increased signal of the anterior talofibular ligament consistent with scarring related to chronic sprain/partial tear. Additional mild scarring and tiny heterotopic ossicle related to chronic sprain at the fibular origin of the calcaneofibular ligament. Findings are significantly increased signal of the posterior talofibular ligament with cystic change underlying its talar footplate also likely sequela of chronic sprain. Tendons: Achilles tendon is normal. The peroneus longus tendon is normal. Mild fusiform thickening and increased signal of the peroneus brevis tendon centered distal to the tip of the lateral malleolus consistent with mild tendinopathy without discrete tear. The tibialis anterior and extensor hallucis longus and extensor digitorum longus tendons are normal. The tibialis posterior, flexor digitorum longus and flexor hallucis longus tendons are normal. Plantar fascia: Mild increased signal at the calcaneal origin of the central component of the plantar aponeurosis both in the proximal most aponeurosis as well as in the underlying bone and with mild edema in the underlying plantar fat pad consistent with mild plantar fasciitis. Bones/other: Bone alignment is normal. No fracture or pathologic marrow replacing process. 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 Fluid: Moderate-sized right ankle joint effusion with fluid distending both the anterior and posterior recesses of the joint space. Physiologic amount fluid in the remaining joint spaces. IMPRESSION: 1. Prominent scarring at the anterior talofibular ligament and to lesser degree at the posterior talofibular and calcaneofibular ligaments consistent with chronic lateral ankle sprain. 2. Subtle stigmata of prior sprain of the deep deltoid ligament. 3. Mild tendinopathy without discrete tear of the peroneus brevis tendon. 4. Mild plantar fasciitis. 5. 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 Reviewed, dictated and finalized at location A. IMPRESSION: 1. Prominent scarring at the anterior talofibular ligament and to lesser degree at the posterior talofibular and calcaneofibular ligaments consistent with chr onic lateral ankle sprain. 2. Subtle stigmata of prior sprain of the deep deltoid ligament. 3. Mild tendinopathy without discrete tear of the peroneus brevis tendon. 4. Mild plantar fasciitis. 5. 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
== END 2024-11-15 09:08 | disposition home or self-care (01) ==
LOC: MICIMG 09:09
PROVIDERS: Visit Provider Podiatrist Foot & Ankle Surgery
DX: M66.371 Spontaneous rupture of flexor tendons, right ankle and foot (principal); S92.141A Displaced dome fracture of right talus, initial encounter for closed fracture; X58.XXXA Exposure to other specified factors, initial encounter; M72.2 Plantar fascial fibromatosis; M19.071 Primary osteoarthritis, right ankle and foot
CPT/HCPCS: 73721

== ENCOUNTER 2024-11-20 09:53 | Outpatient (CLI) | payer OTHER, SELFPAY ==
--- OUTSIDE RECORDS SUMMARY | 2024-08-26 04:40 | XMS_ITS ---
Author Organization [facility] Address [address] [place], [place] [address] Care Team Providers Care Field Training Agent Name Role Phone Gretta Maldonado Unavailable [phone] REASON FOR VISIT f/u Encounters Encounter Location Date Provider Diagnosis [address] Dr[address] Maldonado [address] [place] [address] 08/26/2024 Gretta Maldonado Plan Of Treatment Next Appt Details Provider Name:Gretta Maldonado, 09:40:00 AM, [address] [place], [address], Progress Notes * Michelle SOARESDOB:1990 (34 yo F)Acc No.[id number]:08/26/2024 Progress Notes Patient: Michelle Taylor Provider: Freddy Maldonado MD :1990 A ge:33 Y S ex:Female Date:08/26/2024 Address:[address] [place], [place] [id number] Subjective: * Chief Complaints: * F /u * Electronic signature of Hiram aMldonado MD on 11/20/2024 at 09:58 AM CDT Sign off status: Pending * Provider: Freddy Maldonado MD Date: 0 08/26/2024 Generated for Printi ng/Faxing/eTransmitting on: 1 09:58 AM CDT
--- NOTE | 2024-11-20 | ECG_ITS ---
Test Date: 2024-11-20 10:14:51 Measurements Intervals [place] Rate: 70 P: 27 GA: 137 QRS: -15 QRSD: 86 T: 28 QT: 379 QTc: 411 Interpretive Statements SINUS RHYTHM BORDERLINE T WAVE ABNORMALITY- ANT/INF LEADS BASELINE ARTIFACT- I, II, AVR, AVL, AVF, V1-V2 NORMAL ECG No previous ECG available for comparison Electronically Signed On 11-20-2024 15:58:10 CDT by Xavier Membreno D.O.
--- OUTSIDE RECORDS SUMMARY | 2024-11-20 09:58 | XMS_ITS | Encounter Summary ---
Author Organization [facility] Care Team Providers Care Spray Ii Painter Name Role Phone Shane Mcgregor MD Primary Care Provider [phone] No, Physician Primary Care Provider [phone] Unknown, Notinfile Primary Care Provider Unavail able Encounter Details Date Type Department Care Team (Latest Contact Info) Description 06/21/2015 Orders Only [facility] ProviderAj MD [address] [place] [address] Social History Tobacco Use Types Packs/Day Years Used Date Smoking Tobacco: Never Assessed Comments Unknown Sex and Gender Information Value Date Recorded Sex Assigned at Not on file Legal Sex Female 6:11 PM 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 Historical Provider Final Res ult documented in this encounter Visit Diagnoses Not on filedocumented in this encounter Care Teams Spray Ii Painter Relationship Specialty Start Date End Date Shane Mcgregor MD PCP - General Family Medicine 05/01/18 01/31/19 No, Physician PCP - General 11/06/20 11/10/24 Unknown, Notinfile PCP - General 11/11/24 documented as of this encounter
--- OUTSIDE RECORDS SUMMARY | 2024-11-20 09:58 | XMS_ITS | Encounter Summary ---
Author Organization [facility] Address [facility] [place] [address] Care Team Providers Care Drum Handler Name Role Phone Wayne Duran DO Primary Care Provider + Encounter Details Date Type Department Care Team (Latest Contact Info) Description 10/29/2024 Scan [facility] Scanned, Doc Med Group Social History Tobacco Use Types Packs/Day Years Used Date Smoking Tobacco: Never Smokeless Tobacco: Never Alcohol Use Standard Drinks/Week Comments Yes 0 (1 standard drink = 0.6 oz pur e alcohol) 2 x month PHQ-2 Answer Date Recorded PHQ-2 Score - If the patient scores above 3, please move on to questions 3-9 3 08/30/2020 Comments No Sex and Gender Information Value Date Recorded Sex Assigned at Not on file Legal Sex Female 1:14 PM CDT Gender Identity Not on file Sexual Orientation Not on file Occupation Industry Job Start Date Job End Date Not on file Not on file Not on file Not on file documented as of this encounter Plan of Treatment Not on file documented as of this encounter Visit Diagnoses Not on filedocumented in this encounter Additional Health Concerns Assessment Noted Time PHQ-9 Depression Total Score: 11 021 8:12 AM CDT documented as of this encounter Care Teams Drum Handler Relationship Specialty Start Date End Date Wayne Duran DO [address] [place] [id number] PCP - General FAMILY PRACTICE 09/09/19 documented as of this encounter
--- OUTSIDE RECORDS SUMMARY | 2024-11-20 09:58 | XMS_ITS | Clinical Summary ---
Author Organization [facility] Address [address], [facility] [address] [place] [address] Phone Care Team Providers Care Platen Builder Up Name Role Phone Wayne Duran DO Primary Care Provider + Candelario Hilliard MD Unavailable [phone] Allergies No known active allergies Medications Vitamins/Minera ls Tablet Take 1 Tab by mouth. Active omeprazole (PriLOSEC) 20 MG CAPSULE DELAYED RELEASE Take 20 mg by mouth. 11/08/2019 Active sertraline (ZOLOFT) 50 MG Tablet 11/02/2020 Active Cholecalciferol (Vitamin D3) 2000 UNIT Capsule 06/23/2021 Active cyanocobalamin (VITAMIN B-12) 1000 MCG/ML Solution 07/01/2021 Active metFORMIN (GLUCOPHAGE-XR) 500 MG TABLET SR 24 HR 04/05/2021 Active spironolactone (ALDACTONE) 50 MG Tablet 04/05/2021 Active Synthroid 137 MCG Tablet 10/28/2022 Active Insulin Syringe-Needle U-100 (INSULIN SYRINGE 1CC/31GX5/16) 31G X 5/16 1 ML Misc 11/03/2022 Active Norethindrone Acet-Ethinyl Est 1-20 MG-MCG Tablet 02/27/2024 Active Zepbound 10 MG/0.5ML Solution Auto-injector 10/08/2024 Activ e atorvastatin (LIPITOR) 20 MG Tablet 08/20/2024 Active phentermine 30 MG Capsule 04/21/2023 5 Discontinu ed(Med List Clean Up) Zepbound 5 MG/0.5ML Solution Auto-injector 04/09/2024 5 Discontinu ed(Med List Clean Up) Active Problems Problem Noted Date Diagnosed Date Vitamin B12 deficiency 05/16/2020 Iron deficiency anemia secon ramu to inadequate dietary iron intake 12/20/2019 Encounters Date Type Department Care Team Description 10/29/2024 12:45 PM CDT Office Visit [facility] [address] [phone] Dorothy Delatorre, GARAGEMAN, VESSEL SLAG WORKER Iron 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 (Primary Dx); Vitamin B12 deficiency; Other fatigue 10/29/2024 12:30 PM CDT Lab [facility] [address] [address] Lab, Cc [place] Iron 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; Vitamin B12 deficiency; Other fatigue 10/29/2024 Travel from Last 3 Months Immunizations Immunization Administration Dates Next Due Covid-19, Mrna, Lnp-s, PF, 1 00 mcg/0.5 mL Dose (Moderna) 04/29/2020,04/01/2020 Influenza Vaccine, MDCK,quad rivalent, pres free 11/26/2017,11/17/2016 Influenza Vaccine, Quadrivalent, PF 10/11,11/18/2020,10/22/2019,2018 Influenza,Split Virus,Trivalent,Injectable,PF 12/15/2023 TDAP Vaccine 06/01/2018 Social History Tobacco Use Types Packs/Day Years Used Date Smoking Tobacco: Never Smokeless Tobacco: Never Tobacco Cessation:Counseling Given: Not Answered Alcohol Use Standard Drinks/Week Comments Never 0 (1 standard drink = 0.6 oz pur e alcohol) AUDIT-C Answer Date Recorded Q1: How often do you have a drink containing alc ohol? Never 12/20/2019 Average Number of Drinks Not on file 020 Frequency of Binge Drinking Not on file 10/2019 PHQ-2 Answer Date Recorded Total Score - Questions 1-9 0 06/11 Sexually Active Control Partners Comments Yes Comments No Sex and Gender Information Value Date Recorded Sex Assigned at Not on file Legal Sex Female 2:13 PM CDT Gender Identity Not on file Sexual Orientation Not on file Last Filed Vital Signs Vital Sign Reading Time Taken Comments Blood Pressure 102/80 10/29/2024 12:38 PM CDT Pulse 84 10/29/2024 12:38 PM CDT Temperature 36.4 C (97.6 F) 10/29/2024 12:38 PM CDT Respiratory Rate 18 10/29/2024 12:38 PM CDT Oxygen Saturation 96% 10/29/2024 12:38 PM CDT Inhaled Oxygen Concentration - - Weight 88.6 kg (195 lb 4.8 oz) 10/29/2024 12:38 PM CDT Height 177.8 cm (5' 10) 10/29/2024 12:38 PM CDT Body Mass Index 28.02 10/29/2024 12:38 PM CDT Plan of Treatment Upcoming Encounters Date Type Department Care Team (Late st Contact Info) Description 04/11/2025 9:00 AM BICYCLE INSPECTOR Lab [facility] [address] [phone] Lab, [facility]c [facility] 04/11/2025 9:15 AM BICYCLE INSPECTOR Office Visit [facility] [address] [phone] Candelario Hilliard MD [address] [place] [phone] Health Maintenance Due Date Last Done Comments Hepatitis B Immunization (1 of 3 - 19+ 3-dose series) 2008 Pap Smear 2010 Human Papillomavirus (HPV) Immunization (1 - 3-dose SCDM series) 2016 Cervical Cancer Screening (CCS) 09/12/2019 HPV/Cotest 09/12/2019 Influenza Immunization (#1) 2024 11/0 05/2023, 10/19/2022, 10/26/2021, Additional history exists SARS-COV-2 Immunization ( season) 2024 01/30/2021, 04/29/2020, 04/01/2020 Td Immunization Every 10 Years (Adults With 1 Tdap) 06/01/2028 06/01/2018, 09/13/2014 Respiratory Syncytial Virus (RSV) Immunization (Adult) (1 - 1-dose 75+ series) 2064 DTaP/Tdap/Td Immunization Discontinued 06/01/2018, 05/2014 Hepatitis C Virus (HCV) Screening Completed 08/09/2020 Meningococcal Immunization (ACWY) Aged Out No longer eligible based on patient's age to complete this topic Pneumococcal Immunization Combined Aged Out No longer eligible based on patient's age to complete this topic Rotavirus Immunization Aged Out No lo nger eligible based on patient's age to complete this topic Procedures Procedure Name Priority Date/Time Associated Diagnosis Comments CBC WITH AUTO DIFF [place] Routine 10/29/2024 12:15 PM CDT CMP (COMPREHENSIVE METABOLIC PANEL) Routine 10/29/2024 12:15 PM CDT Iron 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 Vitamin B12 deficiency Other fatigue VITAMIN B12 Routine 10/29/2024 12:15 PM CDT Iron 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 Vitamin B12 deficiency Other fatigue FOLIC ACID (FOLATE) Routine 10/29/2024 1 2:15 PM CDT Iron 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 Vitamin B12 deficiency Other fatigue FERRITIN Routine 10/29/2024 12:15 PM CDT Iron 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 Vitamin B12 deficiency Other fatigue IRON W/ IRON BINDING CAPACITY [place] Routine 10/29/2024 12:15 PM CDT Iron 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 Vitamin B12 deficiency Other fatigue from Last 3 Months Results * IRON W/ IRON BINDING CAPACITY [place] (10/29/2024 12:15 PM CDT) IRON 97 50 - 212 ug/dL [facility] [place] UIBC 255 155 - 355 ug/dL [facility] TIBC 352 261 - 478 ug/dl [facility] % Saturation 28 20 - 50 % [facility] 10/29/2024 12:1 5 PM CDT Narrative [facility] - 10/29/2024 1:00 PM CDT Release to patient->Immediate us Kathy Warner GARAGEMAN, VESSEL SLAG WORKER LAB SEND OUTS Fin al Result [facility] [place] [address], * CBC WITH AUTO DIFF [place] (10/29/2024 12:15 PM CDT) WBC 7.7 4.0 - 10.0 10*3/uL [facility] HGB 12.5 11.2 - 15.7 g/dL [facility] HCT 37.3 34.1 - 44.9 % [facility] PLT 320 163 - 369 10*3/uL [facility] MPV 11.1 9.4 - 12.4 fL [facility] RBC 4.00 3.93 - 5.22 10*6/uL [facility] MCV 93 79 - 95 fL [facility] MCH 31.3 25.6 - 32.2 pg [facility] MCHC 33.5 32.2 - 36.5 g/dL [facility] RDW 12.0 11.6 - 14.4 % [facility] Neutrophils % 64.3 36.0 - 66.0 % [facility] Lymphocytes % 29.2 19.0 - 40.0 % [facility] Monocytes % 4.7 4.1 - 12.1 % [facility] Eosinophils % 0.8 0.0 - 3.5 % [facility] Basophils % 0.7 0.0 - 1.0 % [facility] Absolute Neutrophils 4.9 1.4 - 6.6 10*3/uL [facility] Absolute Lymphocytes 2.2 0.8 - 4.0 10*3/uL [facility] Absolute Monocytes 0.4 0.2 - 1.2 10*3/uL [facility] Absolute Eosinophils 0.1 0.0 - 0.4 10*3/uL [facility] Absolute Basophils 0.1 0.0 - 0.1 10*3/uL [facility] 10/29/2024 12:1 5 PM CDT us Kathy Warner APRN, CNP LAB SEND OUTS Fin al Result [facility] [address] [place] [address], [place] [phone] * VITAMIN B12 (10/29/2024 12:15 PM CDT) Vitamin B12 306 180 - 914 pg/mL [facility] Blood 10/29/2024 12:1 5 PM CDT Narrative [facility] - 11/01/2024 2:10 PM CDT Release to patient->Immediate us Kathy Warner APRN, CNP CHEMISTRY ORDERABLE S Final Result Performing Organization Address City/[facility]/ZIP Co de Phone Number [facility] [place] [address], [place] [phone] * FOLIC ACID (FOLATE) (10/29/2024 12:15 PM CDT) Folate >20.00 >=5.90 ng/mL [facility] Blood 10/29/2024 12:1 5 PM CDT Narrative [facility] - 11/01/2024 2:10 PM CDT Release to patient->Immediate IS THE PATIENT REQUIRED TO BE FASTING FOR 12 HOURS?->No Kathy Wraner APRN, VESSEL SLAG WORKER CHEMISTRY ORDERABLE S Final Result [facility] [place] [address], [place] [phone] * FERRITIN (10/29/2024 12:15 PM CDT) Ferritin 108 11 - 307 ng/mL [facility] Blood 10/29/2024 12:1 5 PM CDT Narrative [facility] - 11/01/2024 2:10 PM CDT Release to patient->Immediate Kathy Warner APRN, VESSEL SLAG WORKER CHEMISTRY ORDERABLE S Final Result Performing Organization Address City/[facility]/ZIP Co de Phone Number CANCER PREFLIGHT INSPECT[facility] [address] [place] [address], [place] [phone] * (ABNORMAL) CMP (COMPREHENSIVE METABOLIC PANEL) (10/29/2024 12:15 PM CDT) Glucose 82 70 - 105 mg/dL [facility] Blood Urea Nitrogen 12 7 - 25 mg/dL [facility] Creatinine 0.7 0.6 - 1.2 mg/dL [facility] Sodium 138 136 - 145 mEq/L [facility] Potassium 3.6 3.5 - 5.1 mEq/L [facility] Chloride 102 98 - 107 mEq/L [facility] Bicarbonate 26 21 - 31 mEq/L [facility] Total Bilirubin 0.5 0.3 - 1.0 mg/dL [facility] Alk. Phosphatase 76 34 - 104 U/L [facility] Aspartate Aminotransferase 10(L) 13 - 39 U/L [facility] Alanine Aminotransferase 5(L) 7 - 52 U/L [facility] Total Protein 6.9 6.4 - 8.9 g/dL [facility] Albumin 4.3 3.5 - 5.7 g/dL [facility] Calcium 9.5 8.6 - 10.3 mg/dL [facility] Anion Gap 13.6 7.0 - 15.0 mEq/L [facility] Globulin 2.6 2.0 - 3.5 g/dL [facility] EGFR 115 >60 ml/min/1. 73m2 [facility] Comment: This eGFR is calculated using 2020 CKD-EPI Creatinine equation without race modifier based on the NKF-ASN task force recommendations Equation: gVBN=282*min(SCr/k,1)a*max(SCr/k,1)-1.200*0.9938Age*1.012 (if female), where SCr is serum creatinine, k is 0.7 for females and 0.9 for males, and a is -0.241 for females and -0.302 for males Blood 10/29/2024 12:1 5 PM CDT Narrative [facility] - 10/29/2024 1:00 PM CDT Release to patient->Immediate IS THE PATIENT REQUIRED TO BE FASTING FOR 8 HOURS?->No us Kathy Warner APRN, VESSEL SLAG WORKER CHEMISTRY ORDERABLE S Final Result [facility] [place] [address], from Last 3 Months Insurance [facility] [employer] Care Teams Platen Builder Up Relationship Specialty Start Date End Date Wayne Duran DO [address] [place] [phone] PCP - General Family Medicine 12/07/19 Candelario Hilliard MD [address] [place] [phone] Consulting Physician Oncology 12/07/19
--- OUTSIDE RECORDS SUMMARY | 2024-11-20 09:59 | XMS_ITS | Clinical Summary ---
Author Organization [facility] Address [address] [place] [address] Care Team Providers Care Control Panel Tester Name Role Phone Roger Wayne Slick WALLACE Primary Care Provider + Allergies No known active allergies Medications KURVELO 0.15-30 MG-MCG tablet 0 Active triamcinolone 0.5 % ointment Apply topically daily. 9 Active multi vitamin/minerals tablet Take 1 tablet by mouth daily. Active LEVOTHYROXINE 50 MCG tabletIndications: Acquired hypothyroidism TAKE 1 TABLET EVERY MORNING 90 tablet 3 1 Active OMEPRAZOLE 20 MG capsuleIndications :Gastroesophageal reflux disease TAKE 1 CAPSULE DAILY 90 capsule 3 1 Active SERTRALINE 50 MG tabletIndications: Depression with anxiety TAKE 1 TABLET DAILY 90 tablet 3 2 Active zolpidem CR 6.25 MG tabletIndications: Insomnia, unspecified type Take 1 tablet (6.25 mg total) by mouth nightly as needed for Sleep. Please call office to schedule visit. 15 tablet 2 Active Active Problems Problem Noted Date Diagnosed Date Vitamin B12 deficiency 05/16/2020 Iron deficiency anemia secon ramu to inadequate dietary iron intake 12/20/2019 Depression with anxiety 09/09/2019 Rash 09/09/2019 Morbid obesity with body mass index of 40.0-44.9 in adult 02/01/2019 Encounters Date Type Department Care Team Description 10/29/2024 Scan [facility] SRVCS Scanned, [facility] from Last 3 Months Immunizations Immunization Administration Dates Next Due Flucelvax 6 Months+ (Prefilled Syringe) 11/27/19 18,11/17/2016 Fluzone 6 Months+ Quad (0.5 mL Prefilled Syringe ) 10/22/2019,11/08/2018 Tdap (Generic) 06/01/2018 Family History Medical History Relation Comments No Known Problems Father Cancer Maternal Grandfather lung Cancer Maternal Grandmother breast Heart Disease Maternal Grandmother No Known Problems Mother No Known Problems Paternal Grandfather Dementia Paternal Grandmother Relation Status Comments Father Alive Maternal Grandfather Maternal Grandmother (Age 80) Mother Alive Paternal Grandfather Alive Paternal Grandmother Social History Tobacco Use Types Packs/Day Years [...] file Not on file Not on file Last Filed Vital Signs Vital Sign Reading Time Taken Comments Blood Pressure 116/80 11/02/2020 9:15 AM CDT Pulse 90 11/02/2020 9:15 AM CDT Temperature 36.9 C (98.4 F) 11/02/2020 9:15 AM CDT Respiratory Rate 16 11/02/2020 9:15 AM CDT Oxygen Saturation 98% 11/02/2020 9:15 AM CDT Inhaled Oxygen Concentration - - Weight 143.3 kg (315 lb 14.4 oz) 11/02/2020 9:15 AM CDT Height 180.3 cm (5' 11) 11/02/2020 9:15 AM CDT Body Mass Index 44.06 11/02/2020 9:15 AM CDT Plan of Treatment Health Maintenance Due Date Last Done Comments Cervical Cancer Screening Pap Smear (Age 30 to 64) Every 3 Years 1989 Hepatitis B Vaccines (1 of 3 - 19+ 3-dose series) 2008 HPV Vaccines (1 - 3-dose SCDM series) 2016 Cervical Cancer Screening Pap with HPV Testing (Age 30 to 64) Every 5 Years 09/12/2019 02/01/2019 Cervical Cancer Screening with HPV 09/12/2019 Annual Physical 07/13/2021 07/13/2020 PHQ-2 (Physician [place]) 02/11/2024 COVID-19 Vaccine (3 - season) 2024 04/29/2020, 04/01/2020 Influenza Adult (#1) 2024 10/22/2019, 11/08/2018, 11/26/2017, Additional history exists DTaP, Tdap and Td Vaccines (3 - Td or Tdap) 06/01/2028 06/01/2018, 09/13/2014 Hepatitis C Completed 08/09/2020 Meningococcal B Vaccine Aged Out No l onger eligible based on patient's age to complete this topic Meningococcal Vaccine Aged Out No bisi blayne eligible based on patient's age to complete this topic Pneumococcal Vaccine: Pediatrics (0 to 5 Years) and At-Risk Patients (6 to 49 Years) Aged Out No longer eligible based on patient's age to complete this topic RSV Immunizations Under 20 Months Aged Out No longer eligible based on patient's age to complete this topic Procedures Procedure Name Priority Date/Time Associated Diagnosis Comments HEPATITIS C ANTIBODY W/RFX TO HCV RNA Routine 08/09/2020 8:30 AM CDT OUTSIDE CYTOPATH CERV/VAG INTERPRET (PAP) 02/01/2019 from Last 3 Months or Most Recently Relevant to Health Maintenance Results * HEPATITIS C ANTIBODY W/RFX TO HCV RNA (08/09/2020 8:30 AM CDT) HEPATITIS C AB NON-REACTI VE NON-REACT NIKUNJ [facility] SIGNAL TO CUTOFF 0.02 <[address] [facility] Comment: HCV antibody was non-reactive. There is no laboratory evidence of HCV infection. In most cases, no further action is required. However, if recent HCV exposure is suspected, a test for HCV RNA (test code 32072) is suggested. For additional information please refer to http://education.[employer]/faq/AFE27l6 (This link is being provided for informational/ educational purposes only.) 08/09/2020 8:30 AM CDT 08/09/2020 8:30 AM CDT Narrative [facility] - 08/10/2020 1:16 PM CDT FASTING:YES FASTING: YES us Wayne Duran DO LABORATORY Final Re sult [facility] [address] [place] [address] * OUTSIDE CYTOPATH VAG/CERV PAP WITH HPV (02/01/2019) 02/01/2019 Narrative 02/01/2019 Ordered by an unspecified provider. us Documents Scanned SCANNING Final Result from Last 3 Months or Most Recently Relevant to Health Maintenance Insurance [employer] Care Teams Control Panel Tester Relationship Specialty Start Date End Date Wayne Duran DO [facility] [place] [place] [address] PCP - General FAMILY PRACTICE 09/09/19
--- OUTSIDE RECORDS SUMMARY | 2024-11-20 09:59 | XMS_ITS | Clinical Summary ---
Author Organization [facility] Address [address] [place] [address] Care Team Providers Care First Leveler Name Role Phone Unknown, Notinfile Primary Care Provider Unavail able Allergies No known active allergies Medications sertraline (ZOLOFT) 50 mg tablet 1 Active omeprazole (PriLOSEC) 20 mg capsule 1 Active multivitamin with minerals tablet Take 1 tablet by mouth daily Active metFORMIN (GLUMETZA) 500 mg 24 hr tablet Take 1 tablet (500 mg total) by mouth daily with breakfast Active spironolactone (ALDACTONE) 100 mg tablet Take 1 tablet (100 mg total) by mouth daily Active cyanocobalamin (Vitamin B-12) 1,000 mcg/mL injection 3 Active insulin syringe-needle U-100 1 mL 31 gauge x 06/25 syringe 3 Active Synthroid 137 mcg tablet 3 Active phentermine 15 mg capsule 4 Active norethindrone ac-eth estradioL (Loestrin 03/01, ,) 1-20 mg-mcg per tablet Take 1 tablet by mouth daily 84 tablet 3 5 02/24/19 26 Active Active Problems Problem Noted Date Diagnosed Date Closed fracture of metatarsal bone 11/11/2024 Fracture of lower leg 11/11/2024 Thyroid nodule 07/01/2022 Hypothyroidism 11/19/2021 Irregular periods 11/19/2021 Loose stools 11/19/2021 Polycystic ovary syndrome 11/19/2021 Vitamin D deficiency 11/19/2021 Vitamin B12 deficiency (non anemic) 05/16/2020 Iron deficiency anemia secon ramu to inadequate dietary iron intake 12/20/2019 Depression with anxiety 09/09/2019 Rash 09/09/2019 Morbid obesity with BMI of 40.0-44.9, adult 12/04/2018 Resolved Problems Problem Noted Date Diagnosed Date Resolved Date BMI 38 Morbidly obese 05/02/20182018 Overview (07/16/2018): Following monthly US due to body habitus 06/15/2018 EFW 2573g (80%); head biometries are >90% 07/08/18: EFW (70%) GBS + in urine 05/02/2018 09/09/2018 Supervision of other normal , antepartum 05/02/2018 09/09/2018 Overview (06/26/2018): [x] FOB name: Mitchel Martinez First Trimester: [x] Dating Criteria: 9w US [x] Labs: A+/I/-/-, HIV NR [x] Genetic Screening: declined 2nd Trimester: [x] Anatomy ultrasound 3rd Trimester: [x] CBC, HIV, syphilis screen [x] 1hr GCT (26-28wks): [x] Tdap (27-36wks): 06/01/18 [] Rhogam (if Rh neg): [x] GBS: URIA - NEEDS ABX IN LABOR Counseling: [] Method of delivery: [] Method of contraception: undecided [] Method of feeding: undecided 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 9 Encounters Date Type Department Care Team Description 11/11/2024 9:35 AM CDT Ancillary Procedure [facility] Imaging at [address] [id number] Acute right ankle pain 11/11/2024 9:30 AM CDT Office Visit [facility] Con[facility]ient Care at [address] [address] Trower, Yulia M., PATTERN WORKER Acute right ankle pain (Primary Dx) 11/11/2024 Results Follow-Up [facility] Care at [address] [address] Yulia Davis NP XR Ankle Right 3+ Vw 11/11/2024 Telephone [facility] Orthopedics and Sports Medicine [address] [facility] [address] [place] [address] Kizzy Restrepo MA from Last 3 Months Immunizations Immunization Administration Dates Next Due Flucelvax Influenza Quad 11/26/2017,11/17/2016 Influenza, Quadrivalent, Jannet l Culture-based MDCK, Preservative Free, Antibiotic Free, Intramuscular 11/27/2017 Influenza, Quadrivalent, Spl it, Preservative Free, Intramuscular 10/26/2021,11/18/2020,10/22/2019,11/08 Influenza, Trivalent, Cell Culture-based MDCK, Preservative Free, Antibiotic Free, Intramuscular 11/26/2017,11/17/2016 Influenza, Trivalent, Preser vative Free, Intramuscular 12/15/2023 Tdap 06/01/2018 Surgical History Surgery Date Site/Laterality Comments GASTRIC RESTRICTION SURGERY 02/11/2016 - 02/09/2017 TONSILLECTOMY BARIATRIC SURGERY 2016 Medical History Medical History Date Comments GERD (gastroesophageal reflux disease) 2018 Anxiety and depression Morbid obesity with BMI of 40.0-44.9, adult (HCC ) Polycystic ovary syndrome Dane's disease Autoimmune disease Abnormal uterine bleeding (AUB) Family History Medical History Relation Name Comments Cancer Maternal Grandfather Luigi Breast cancer Maternal Grandmother Anne-Marie Cancer Maternal Grandmother Anne-Marie Heart disease Maternal Grandmother Anne-Marie Hypertension Maternal Grandmother Anne-Marie Stroke Maternal Grandmother Anne-Marie Depression Mother Kait Ovarian cancer Neg Hx Relation Name Status Comments Father Alive Maternal Grandfather Luigi Maternal Grandmother Anne-Marie Mother Kait Alive Paternal Grandfather Alive Paternal Grandmother Social History Tobacco Use Types Packs/Day Years Used Date Smoking Tobacco: Never Smokeless Tobacco: Never Tobacco Cessation:Counseling Given: Not Answered Alcohol Use Standard Drinks/Week Comments Not Currently 0 (1 standard drink = 0.6 oz pur e alcohol) Comments No Sex and Gender Information Value Date Recorded Sex Assigned at Not on file 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 Gender Identity Female 11/05/2018 10:35 PM CDT Sexual Orientation Straight 11/05/2018 10 :35 PM CDT Obstetrics History Para Term AB IAB SAB Ectopic Multiple Livin g Live Births 1 1 1 1 1 Date Outcome GA Total Labor Labor/2nd/3rd Weight Sex Type Anes PTL Vicki A1 A5 Name Clin 07/20 Term 38w 4d 2.97 kg (6 lb 8.8 oz) F Vag-S pont Epidura l N Living Comments 02/07 Last Filed Vital Signs Vital Sign Reading Time Taken Comments Blood Pressure 108/77 11/11/2024 9:30 AM CDT Pulse 80 11/11/2024 9:30 AM CDT Temperature 36.3 C (97.4 F) 11/11/2024 9:30 AM CDT Respiratory Rate 20 11/11/2024 9:30 AM CDT Oxygen Saturation 98% 11/11/2024 9:30 AM CDT Inhaled Oxygen Concentration - - Weight 86.2 kg (190 lb) 11/11/2024 9:30 AM CDT Height 177.8 cm (5' 10) 01/07/2024 10:50 AM DRILLING FOREMAN Body Mass Index 27.26 01/07/2024 10:50 AM DRILLING FOREMAN Plan of Treatment Health Maintenance Due Date Last Done Comments Varicella Vaccines (1 of 2 - 13+ 2-dose series) 2002 Hepatitis B Screening 09/12/2007 HPV Vaccines (1 - 3-dose SCDM series) 2016 Depression Screening 09/10/2019 09/09/2018 Cervical Cancer Screening 11/12/2022 11/12/2021 Covid-19 Vaccine ( - season) 2024 04/29/2020, 04/01/2020 Influenza Vaccine (#1) 2024 , 10/26/2021, 11/18/2020, Additional history exists Regular Well Visit/Exam 18-64 11/23/2024 11/24/2023, 11/18/2022, 11/12/2021, Additional history exists DTaP/Tdap/Td Vaccine (2 - Td or Tdap) 06/01/2028 06/01/2018 Hepatitis C Screening Completed 11/27/2017 Pneumococcal vaccine <65 Aged Out No longer eligible based on patient's age to complete this topic Procedures Procedure Name Priority Date/Time Associated Diagnosis Comments XR ANKLE RIGHT 3 OR MORE VIEWS Schedule SHIRA, Read SHIRA (Appt Today, Awaiting Results) 11/11/2024 9:44 AM CDT Acute right ankle pain PAP AND HIGH RISK HPV, REFLEX TO GENOTYPING Routine 11/12/2021 2:14 PM CDT Well woman exam HEPATITIS C ANTIBODY Routine 11/27/2017 11:44 AM CDT from Last 3 Months or Most Recently Relevant to Health Maintenance Results * XR Ankle Right 3+ Vw (11/11/2024 9:44 AM CDT) Anatomical Region Laterality Modality Lower Extremities, Ankle Right Digital Radiography 11/11/2024 11:1 6 AM CDT Narrative 11/11/2024 11:17 AM CDT EXAM DESCRIPTION: XR ANKLE RIGHT 3 OR MORE VIEWS REASON FOR STUDY: pain Pt complains of right ankle pain after falling out of bed last night. No prior fx or surgery TECHNIQUE: 3 radiographic view(s) of the right ankle . COMPARISON: None FINDINGS: BONES/JOINTS: There is no acute fracture, malalignment or osseous abnormality. Small ankle joint effusion. SOFT TISSUES: Soft tissue swelling of the ankle IMPRESSION: 1. No acute osseous abnormality. 2. Soft tissue swelling of the ankle and small ankle joint effusion. THIS IS AN ELECTRONICALLY VERIFIED FINAL REPORT 11/11/2024 11:17 AM - Electronically signed by Rosa Maria Fitch M.D. FT T: Report ID: [id number] Reading Location: [id number] Procedure Note Rosa Maria Herron MD - 11/11/2024 EXAM DESCRIPTION: XR ANKLE RIGHT 3 OR MORE VIEWS REASON FOR STUDY: pain Pt complains of right ankle pain after falling out of bed last night. Noprior fx or surgery TECHNIQUE: 3 radiographic view(s) of the right ankle . COMPARISON: None FINDINGS: BONES/JOINTS: There is no acute fracture, malalignment orosseous abnormality. Small ankle joint effusion. SOFT TISSUES: Soft tissue swelling of the ankle IMPRESSION: 1. No acute osseous abnormality. 2. Soft tissue swelling of the ankle and small ankle joint effusion. THIS IS AN ELECTRONICALLY VERIFIED FINAL REPORT 11/11/2024 11:17 AM - Electronically signed by Rosa Maria Fitch M.D. FT T: Report ID: [id number] Reading Location: [place] [address] us Yulia Davis PATTERN WORKER IMG XR PROCEDURES Final Result * Pap and High Risk HPV, reflex to Genotyping (11/12/2021 2:14 PM CDT) Thin prep (Pap test) 11/12/2021 2:14 PM CDT 11/14/2021 2:14 PM CDT Narrative PATHOLOGY [facility] - 11/20/2021 9:41 AM CDT [facility] Department of Pathology [address] [place], [place] [id number] Final Report with Addendum Note to Patients: This report may contain a detailed description of human tissue sent by a health care provider to the laboratory for pathologic evaluation. The content of this report is essential for diagnosis and may provide important critical findings. This information may be unfamiliar to patients to review without a medical professional present. It is advised that the patient review this report in the presence of a health care provider who can answer questions and explain the details. Patient Name: LINDA SOARES Address: [address] [place] [address] Gender: F : 1990 (Age: 31) Service: Laboratory Location: [facility] #: [id number] Patient Type: [facility] SPECIMEN Taken: 11/12/2021 Received: 11/14/2021 Accessioned:: 11/15/2021 Reported: 11/20/2021 Physician(s): Darrell Li M.D. [facility] Diagnosis: Source of Specimen: SCREENING THIN PREP IMAGED PAP w/ HPV Specimen Adequacy: - Satisfactory for evaluation; endocervical/transformation zone component present General Category: - Negative for intraepithelial lesion or malignancy Interpretation/Results: - Numerous RBC's - Numerous inflammatory cells present CLINTON Aleman(ASCP) Report Electronically Reviewed and Signed Out By WINIFRED AlemanASCP) 11/20/2021 09:41:40Addenda: HPV Test Interpretation NEGATIVE for types 16, 18, 31, 33, 35, 39, 45, 51, 52, 56, 58, 59, 66 and 68. Test performed utilizing Gen-Probe Aptima assay. CLINTON Nguyễn(ASCP)Report Electronically Reviewed and Signed Out By WINIFRED NguyễnASCP) 11/16/2021 09:53:56 Specimen(s) Received: A: SCREENING THIN PREP IMAGED PAP w/ HPV Clinical History: Last Menstrual Period: 09/19/21 The Pap test is a screening test used to aid in the detection of cervical cancer and its precursors. It should not be the sole means by which malignant and premalignant lesions are diagnosed. Both false negative and false positive results may occur. It also has poor sensitivity for the detection of endometrial lesions and should not be used to evaluate suspected endometrial abnormalities. For these reasons it is most important to obtain Pap tests at regular intervals. The performance characteristics of some immunohistochemical stains, fluorescence in-situ hybridization tests and immunophenotyping by flow cytometry cited in this report (if any) were determined by the Surgical Pathology Department at [facility] as part of an ongoing software quality analyst program and in compliance with federally mandated regulations drawn from the Clinical Laboratory Improvement Act of 1988 (CLIA '88). Some of these tests rely on the use of analyte specific reagents and are subject to specific labeling requirements by the US Food and Drug Administration. Such diagnostic tests may only be performed in a facility that is certified by the Department of Health and Human Services as a high complexity laboratory under CLIA '88. The FDA has determined that such clearance or approval is not necessary. This test is used for clinical purposes. It should not be regarded as investigational or for research. Nevertheless, federal rules concerning the medical use of analyte specific reagents require that the following disclaimer be attached to the report: This test was developed and its performance characteristics determined by the Surgical Pathology Department [facility]. It has not been cleared or approved by the U. S. Food and Drug Administration. us Darrell Li MD LAB CYTOLOGY ORDERABLES Final Result PATHOLOGY [facility] * Hepatitis C antibody (11/27/2017 11:44 AM CDT) Hep C Ab NONREACT NONREACTIVE Comment: Siemens [employer] using VICKI (chemiluminescent immunoassay) technology. NONREACTIVE: Antibodies to Hepatitis C not detected. This does not exclude early acute Hepatitis C infection, possibility of exposure to Hepatitis C, antibodies below detection limit, or to lack of antibody reactivity to the antigen used in this assay. EQUIVOCAL: Antibodies to Hepatitis C may or may not be present. Sample to be confirmed by real-time PCR method. REACTIVE: Antibodies to Hepatitis C detected.Sample to be confirmed by real-time PCR method. 11/27/2017 11:4 4 AM CDT 11/27/2017 11:51 AM CDT Kit Hanks DO LAB MICROBIOLOGY - GEN ERAL ORDERABLES Final Result Performing Organization Address City/State/[facility] Co de Phone Number [facility] HISTORICAL RESULTS from Last 3 Months or Most Recently Relevant to Health Maintenance Insurance [facility] [facility] H[facility]/PPO Address: [address] [address] [place] [id number] [facility] H[facility]/PPO Address: [address] [place] [address] [facility] CHO[employer] [facility] HMO/PPO Address: [address] [address] [place] [address] [facility] [employer] Care Teams First Leveler Relationship Specialty Start Date End Date Unknown, Notinfile PCP - General 11/11/24
--- OUTSIDE RECORDS SUMMARY | 2024-11-20 09:59 | XMS_ITS | Encounter Summary ---
Author Organization [facility] Address [address] [place] [address] Care Team Providers Care Vp Security Name Role Phone Unknown, Lidia Primary Care Provider Unavail able Encounter Details Date Type Department Care Team (Late st Contact Info) Description 11/11/2024 Results Follow-Up [facility] [place] [address] [place] [id number] Yulia Davis, DEALER SALES REP [address] [facility] [address] [place], [place] [id number] XR Ankle Right 3+ Vw Social History Tobacco Use Types Packs/Day Years Used Date Smoking Tobacco: Never Smokeless Tobacco: Never Alcohol Use Standard Drinks/Week Comments Not Currently 0 (1 standard drink = 0.6 oz pur e alcohol) Comments No Sex and Gender Information Value Date Recorded Sex Assigned at Not on file 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
--- OUTSIDE RECORDS SUMMARY | 2024-11-20 09:59 | XMS_ITS | Data Portability ---
Author Organization [place] [facility], Main Office Address [address] [place] [address] Care Team Providers Care Sawyer Cork Slabs Name Role Phone RABIA CRUZ Primary Care Provider RABIA CRUZ Referring Provider Assessment No assessment recorded. Plan of Treatment Reminders Order Date Submit Date Provider Last Modified By Organization Details Last Modified Time Details Appointments None recorded. Lab vitamin B12 + folate, serum or blood 2022 023 [employer] [facility], [address], [place], [address], 3 16:35:40 vitamin D, 25-hydroxy, total, serum 2022 023 [employer] [facility], [address], [place], [address], 3 16:35:41 dhea-sulfat e, serum 2022 023 [employer] [facility], [address], [place], [address], 3 16:35:38 insulin, serum 2022 023 [employer] [facility], [address], [place], [address], 3 16:35:39 testosteron e, free + total, serum 2022 023 [employer] [facility], [address], [place], [address], 3 16:35:43 T3, free, serum or plasma 2022 023 [employer] [facility], [address], [place], [address], 3 16:35:40 TSH + free T4, serum 2022 023 [employer] [facility], [address], [place], [address], 3 16:35:42 CMP, serum or plasma 2022 023 [employer] [facility], [address], [place], [address], 3 16:35:37 Referral None recorded. Procedures None recorded. Surgeries None recorded. Imaging US, thyroid 2022 023 [facility], [address], [place], [address], 3 17:34:32 Medication Orders cyanocobala min (vit B-12) 1,000 mcg/mL injection solution 2022 023 [facility] #81368, [address] [place] [address], [id number], 3 16:37:19 metformin ER 500 mg tablet,exte nded release 24 hr 2022 023 [facility] #26389, [address] [place] [address], [id number], 3 16:36:10 spironolact one 50 mg tablet 2022 023 [facility] #12594, [address] [place] [address], [id number], 3 16:36:11 Lo Loestrin Fe 1 mg-10 mcg (24)/10 mcg (2) tablet 2022 023 [facility] #55100, [address] [place] [address], [id number], 3 16:37:18 Synthroid 137 mcg tablet 2022 023 [facility]79046, [address] [facility], [place], [place], [phone], 3 16:35:40 Patient TargetsNo targets recorded. Patient InstructionsNo instructions recorded. Reason for Referral None Reported. Results Created Date Observation Date Name Description Value Unit Range Abnormal Flag Note LastModifiedBy Organization Detail LastModifiedTime 03/17/19 22 03/20/2021 TSH+F REE T4 TSH 4.03 mIU/L normal Refer ence Range > or = 20 Years 0.40- 4.50 Pregn austin Range s First trime ster 0.26- 2.66 Secon d trime ster 0.55- 2.73 Third trime ster 0.43- 2.91 Not Available [facility] [address] [place], [address], 03/20/2021 14:04:04 03/17/19 22 03/20/2021 TSH+F REE T4 T4, free 1.1 NG/dL 0.8-1. 8 normal Not Available [facility] [address] [place], [address], 03/20/2021 14:04:04 03/17/19 22 03/20/2021 VITAM IN D,25- OH,TO ANDRA,I A vitamin D,25-oh,tota l,ia 23 NG/mL 30-100 low Vitam in D Statu s 25-OH Vitam in D: Defic iency : <20 ng/mL Insuf ficie ncy: 20 - 29 ng/mL Optim al: > or = 30 ng/mL For 25-OH Vitam in D testi ng on patie nts on D2-schmitz pplem entat ion and patie nts for whom quant itati on of D2 and D3 fract ions is requi red, the Quest Assur eD(TM ) 25-OH VIT D, (D2,D 3), LC/MS /MS is recom pola d: order code 70182 (sarya ents >2yrs ). See Note 1 Note 1 For addit ional gilbertr christina brandt refer to http: //[facility] alisson Tobiasia gnost ics.c om/fa q/FAQ 199 (This link is being provi ded for infor kelsy castro/ cecil marx purpo ses only. ) Not Available [address], [address], 03/20/2021 14:04:04 03/17/19 22 03/20/2021 T3, FREE T3, free 3.0 pg/mL 2.3-4. 2 normal Not Available [address], [address], 03/20/2021 14:04:03 03/17/19 22 03/20/2021 VITAM IN B12/F OLATE , SERUM PANEL vitamin B12 444 pg/mL 200-11 00 normal Not Available [address], [address], 03/20/2021 14:04:02 03/17/19 22 03/20/2021 VITAM IN B12/F OLATE , SERUM PANEL folate, serum 11.5 NG/mL normal Refer ence Range Low: <3.4 Borde rline : 3.4-5 .4 Brit l: >5.4 Not Available [address], [address], 03/20/2021 14:04:02 03/17/19 22 03/20/2021 CORTI ZEV, A.M. cortisol, A.M. 22.0 mcg/d L normal Refer ence Range 8 a.m. (7-9 a.m.) Speci men: 4.0-2 2.0 Not Available [facility] [address] [place], [address], 03/20/2021 14:04:01 03/17/19 22 03/20/2021 ESTRA DIOL estradiol 199 pg/mL normal Refer ence Range Folli cular Phase : 19-14 4 Mid-C ycle: 64-35 7 Lutea l Phase : 56-21 4 Postm enopa usal: < or = 31 Refer ence range estab lishe d on post- puber andra patie nt popul ation . No pre-p ubert al refer ence range estab lishe d using this assay . For any patie nts for whom low Estra diol level s are antic ipate d (e.g. males , pre-p ubert al child gee and hypog onada l/pos t-men opaus al femal es), the [facility] Timothy ls Insti tute Estra diol, Ultra sensi tive, LCMSM S assay is recom pola d (orde r code 46032 ). Pleas e note: patie nts being treat ed with the drug fulve stran t (Fasl odex( R)) have demon strat ed signi fican t inter feren ce in immun oassa y metho ds for estra diol measu remen t. The cross react ivity could lead to false ly eleva queenie estra diol test resul ts leadi ng to an inapp ropri ate clini florentino asses sment of estro gen statu s. [facility] order code 52005 -Estr adiol , Ultra sensi tive LC/MS /MS demon strat es negli gible cross react ivity with fulve stran t. Not Available [facility] [address] [place], [address], 03/20/2021 14:04:00 03/17/19 22 03/20/2021 PROLA CTIN prolactin 8.1 NG/mL normal Refer ence Range Femal es Non-p regna nt 3.0-3 0.0 Pregn ant 10.0- 209.0 Postm enopa usal 2.0-2 0.0 Not Available [facility] [address] [place], [address], 03/20/2021 14:03:59 03/17/19 22 03/20/2021 PROGE STERO NE progesterone 0.6 NG/mL normal Refer ence Range s Femal e Folli cular Phase < 1.0 Lutea l Phase 2.6-2 1.5 Post menop ausal < 0.5 Pregn austin 1st Trime ster 4.1-3 4.0 2nd Trime ster 24.0- 76.0 3rd Trime ster 52.0- 302.0 Not Available [facility] [address] [place], [address], 03/20/2021 14:03:59 03/17/19 22 03/20/2021 LH LH 20.3 mIU/m L normal Refer ence Range Folli cular Phase 1.9-1 2.5 Mid-C ycle Peak 8.7-7 6.3 Lutea l Phase 0.5-1 6.9 Postm enopa usal 10.0- 54.7 Not Available [facility] [address] [place], [address], 03/20/2021 14:03:58 03/17/19 22 03/20/2021 INSUL IN insulin 17.9 uIU/m L normal Refer ence Range < or = 19.6 Risk: Optim al < or = 19.6 Moder ate NA High >19.6 Adult cardi ovasc ular event risk categ ory cut point s (opti mal, moder ate, high) are based on [facility] Diagn [facility] s popul ation data from 01/29 11. This insul in assay shows stron g cross -reac tivit y for some insul in analo gs (lisp ro, aspar t, and glarg ine) and much lower cross -reac tivit y with other s (dete ryan, gluli sine) . Not Available [facility] [address] [place], [address], 03/20/2021 14:03:57 03/17/19 22 03/20/2021 FSH FSH 7.0 mIU/m L normal Refer ence Range Folli cular Phase 2.5-1 0.2 Mid-c ycle Peak 3.1-1 7.7 Lutea l Phase 1.5- 9.1 Postm enopa usal 23.0- 116.3 Not Available [address], [address], 03/20/2021 14:03:56 03/17/19 22 03/20/2021 DHEA SULFA TE DHEA sulfate 240 mcg/d L 23-266 normal Not Available [address], [address], 03/20/2021 14:03:56 03/17/19 22 03/20/2021 THYRO ID PEROX IDASE ANTIB ODIES thyroid peroxidase antibodies 95 IU/mL <9 high Not Available [address], [address], 03/20/2021 14:03:55 03/17/19 22 03/20/2021 CYCLI C CITRU LLINA QUEENIE PEPTI DE (CCP) AB (IGG) cyclic citrullinate d peptide (ccp) Ab (IgG) <16 units normal Refer ence Range Negat nikunj: <20 Weak Posit nikunj: 20-39 Moder ate Posit nikunj: 40-59 Stron g Posit nikunj: >59 Not Available [address], [address], 03/20/2021 14:03:54 03/17/19 22 03/20/2021 C-ALINA CTIVE PROTE IN C-reactive protein 5.0 mg/L <8.0 normal Not Available [address], [address], 03/20/2021 14:03:53 03/17/19 22 03/20/2021 RHEUM ATOID FACTO R rheumatoid factor <14 IU/mL <14 normal Not Available [address], [place], [address], 03/20/2021 14:03:53 03/17/19 22 03/20/2021 ANTIN UCLEA R ANTIB ODIES TITER AND PATTE RN CAR titer 1:320 titer high Refer ence Range <1:40 Negat nikunj 1:40- 1:80 Low Antib boby Level >1:80 Malone queenie Antib boby Level Not Available [address], [place], [address], 03/20/2021 14:03:52 03/17/19 22 03/20/2021 ANTIN UCLEA R ANTIB ODIES TITER AND PATTE RN CAR pattern nuclea r, homoge neous abnormal Homog eneou s patte rn is assoc iated with syste milagros lupus eryth emato sarah (SLE) , drug- induc ed lupus and adeel ile idiop athic arthr itis. AC-1: Homog eneou s Inter natio nal Conse nsus on CAR Patte rns (http s://d oi.or g/10. 1515/ ccl- 2017- 0052) Not Available [address], [place], [address], 03/20/2021 14:03:52 03/17/19 22 03/20/2021 CAR SCREE N, IFA, W/REF L TITER AND PATTE RN CAR screen, ifa positi ve negati ve abnormal CAR IFA is a first line scree n for detec ting the prese nce of up to appro ximat brett 150 autoa ntibo dies in vario us autoi mmune disea ses. A posit nikunj CAR IFA resul t is sugge stive of autoi mmune disea se and refle xes to titer and patte rn. Furth er labor atory testi ng may be consi dered if clini khadra indic ated. For addit ional infor kelsy n, christina e refer to http: //[facility] alisson Das gnost ics.c om/fa q/FAQ 177 (This link is being provi ded for infor kelsy castro/ cecil aguilerao ses only. ) Not Available [address], [address], 03/20/2021 14:03:51 03/17/19 22 03/20/2021 CBC (H/H, RBC, INDIC ES, WBC, PLT) white blood cell count 6.2 thous and/u L 3.8-10 .8 normal Not Available [facility] [address], [address], 03/20/2021 14:03:51 03/17/19 22 03/20/2021 CBC (H/H, RBC, INDIC ES, WBC, PLT) red blood cell count 4.38 david on/uL 3.80-5 .10 normal Not Available [address], [address], 03/20/2021 14:03:51 03/17/19 22 03/20/2021 CBC (H/H, RBC, INDIC ES, WBC, PLT) hemoglobin 12.8 g/dL 11.7-1 5.5 normal Not Available [address], [address], 03/20/2021 14:03:51 03/17/19 22 03/20/2021 CBC (H/H, RBC, INDIC ES, WBC, PLT) hematocrit 39.9 % 35.0-4 5.0 normal Not Available [address], [address], 03/20/2021 14:03:51 03/17/19 22 03/20/2021 CBC (H/H, RBC, INDIC ES, WBC, PLT) MCV 91.1 fL 80.0-1 00.0 normal Not Available [facility] [address], [address], 03/20/2021 14:03:51 03/17/19 22 03/20/2021 CBC (H/H, RBC, INDIC ES, WBC, PLT) MCH 29.2 pg 27.0-3 3.0 normal Not Available [address], [address], 03/20/2021 14:03:51 03/17/19 22 03/20/2021 CBC (H/H, RBC, INDIC ES, WBC, PLT) MCHC 32.1 g/dL 32.0-3 6.0 normal Not Available [address], [address], 03/20/2021 14:03:51 03/17/19 22 03/20/2021 CBC (H/H, RBC, INDIC ES, WBC, PLT) RDW 12.5 % 11.0-1 5.0 normal Not Available [address], [address], 03/20/2021 14:03:51 03/17/19 22 03/20/2021 CBC (H/H, RBC, INDIC ES, WBC, PLT) platelet count 287 thous and/u L 140-40 0 normal Not Available [address], [address], 03/20/2021 14:03:51 03/17/19 22 03/20/2021 CBC (H/H, RBC, INDIC ES, WBC, PLT) MPV 11.5 fL 7.5-12 .5 normal Not Available [address], [address], 03/20/2021 14:03:51 03/17/19 22 03/20/2021 SED RATE BY MODIF IED CASIMIRO GILMOREREN sed rate by modified westvictoriaren 6 mm/h < or = 20 normal Not Available [address], [address], 03/20/2021 14:03:49 03/17/19 22 03/20/2021 COMPR EHENS NIKUNJ METAB OLIC PANEL glucose 88 mg/dL 65-99 normal Fasti ng refer ence inter dipika Not Available [address], [address], 03/20/2021 14:03:49 03/17/19 22 03/20/2021 COMPR EHENS NIKNUJ METAB OLIC PANEL urea nitrogen (BUN) 11 mg/dL 7-25 normal Not Available [address], [address], 03/20/2021 14:03:49 03/17/19 22 03/20/2021 COMPR EHENS NIKUNJ METAB OLIC PANEL creatinine 0.70 mg/dL 0.50-1 .10 normal Not Available [address], [address], 03/20/2021 14:03:49 03/17/19 22 03/20/2021 COMPR EHENS NIKUNJ METAB OLIC PANEL eGFR non-afr. cuban 115 mL/mi n/1.7 3m2 > or = 60 normal Not Available [address], [address], 03/20/2021 14:03:49 03/17/19 22 03/20/2021 COMPR EHENS NIKUNJ METAB OLIC PANEL eGFR 134 mL/mi n/1.7 3m2 > or = 60 normal Not Available [address], [address], 03/20/2021 14:03:49 03/17/19 22 03/20/2021 COMPR EHENS NIKUNJ METAB OLIC PANEL BUN/creatini ne ratio not applic able (calc ) 6-22 Not Available [address], [address], 03/20/2021 14:03:49 03/17/19 22 03/20/2021 COMPR EHENS NIKUNJ METAB OLIC PANEL sodium 140 mmol/ L 135-14 6 normal Not Available [address], [address], 03/20/2021 14:03:49 03/17/19 22 03/20/2021 COMPR EHENS NIKUNJ METAB OLIC PANEL potassium 4.2 mmol/ L 3.5-5. 3 normal Not Available [address], [address], 03/20/2021 14:03:49 03/17/19 22 03/20/2021 COMPR EHENS NIKUNJ METAB OLIC PANEL chloride 105 mmol/ L 98-110 normal Not Available [address], [address], 03/20/2021 14:03:49 03/17/19 22 03/20/2021 COMPR EHENS NIKUNJ METAB OLIC PANEL carbon dioxide 26 mmol/ L 20-32 normal Not Available [address], [address], 03/20/2021 14:03:49 03/17/19 22 03/20/2021 COMPR EHENS NIKUNJ METAB OLIC PANEL calcium 9.2 mg/dL 8.6-10 .2 normal Not Available [address], [address], 03/20/2021 14:03:49 03/17/19 22 03/20/2021 COMPR EHENS NIKUNJ METAB OLIC PANEL protein, total 7.1 g/dL 6.1-8. 1 normal Not Available [address], [address], 03/20/2021 14:03:49 03/17/19 22 03/20/2021 COMPR EHENS NIKUNJ METAB OLIC PANEL albumin 4.5 g/dL 3.6-5. 1 normal Not Available [address], [address], 03/20/2021 14:03:49 03/17/19 22 03/20/2021 COMPR EHENS NIKUNJ METAB OLIC PANEL globulin 2.6 g/dL_ (calc ) 1.9-3. 7 normal Not Available [address], [address], 03/20/2021 14:03:49 03/17/19 22 03/20/2021 COMPR EHENS NIKUNJ METAB OLIC PANEL albumin/glob ulin ratio 1.7 (calc ) 1.0-2. 5 normal Not Available [address], [address], 03/20/2021 14:03:49 03/17/19 22 03/20/2021 COMPR EHENS NIKUNJ METAB OLIC PANEL bilirubin, total 0.4 mg/dL 0.2-1. 2 normal Not Available [address], [address], 03/20/2021 14:03:49 03/17/19 22 03/20/2021 COMPR EHENS NIKUNJ METAB OLIC PANEL alkaline phosphatase 69 U/L 31-125 normal Not Available [address], [address], 03/20/2021 14:03:49 03/17/19 22 03/20/2021 COMPR EHENS NIKUNJ METAB OLIC PANEL AST 21 U/L 10-30 normal Not Available [address], [address], 03/20/2021 14:03:49 03/17/19 22 03/20/2021 COMPR EHENS NIKUNJ METAB OLIC PANEL ALT 19 U/L 6-29 normal Not Available [address], [address], 03/20/2021 14:03:49 03/17/19 22 03/20/2021 TESTO STERO NE, FREE, BIOAV AILAB LE AND TOTAL , MS albumin 4.6 g/dL 3.6-5. 1 Not Available [address], [address], 03/20/2021 14:03:48 03/17/19 22 03/20/2021 TESTO STERO NE, FREE, BIOAV AILAB LE AND TOTAL , MS sex hormone binding globulin 55.6 nmol/ L 17-124 Not Available [address], [address], 03/20/2021 14:03:48 03/17/19 22 03/20/2021 TESTO STERO NE, FREE, BIOAV AILAB LE AND TOTAL , MS testosterone , free 5.1 pg/mL 0.2-5. 0 high Not Available [address], [address], 03/20/2021 14:03:48 03/17/19 22 03/20/2021 TESTO STERO NE, FREE, BIOAV AILAB LE AND TOTAL , MS testosterone ,bioavailabl e 10.7 NG/dL 0.5-8. 5 high Not Available [address], [address], 03/20/2021 14:03:48 03/17/19 22 03/20/2021 TESTO STERO NE, FREE, BIOAV AILAB LE AND TOTAL , MS testosterone , total, MS 67 NG/dL 2-45 high For addit ional infor christina brandt e refer to https ://ed ucati on.qu estdi [employer]s. com/f aq/FA Q165 (This link is being provi ded for infor kelsy nal/e ducat ional purpo ses only. ) (Note ) This test was devel oped and its malik tical perfo rmanc e jarrett cteri stics have been deter mined by [employer]. It has not been clear ed or appro mary by the FDA. This assay has been valid ated pursu ant to the CLIA regul ation s and is used for clini florentino purpo ses. F med fusio n [address] [facility] [address] [place] [address] [phone] Jose todd MD Not Available [facility] [address] [address] [place], [address], 03/20/2021 14:03:48 03/17/19 22 03/20/2021 IRON, TIBC AND TANIA TIN PANEL iron, total 48 mcg/d L 40-190 normal Not Available [facility] [address], [address], 03/20/2021 14:03:48 03/17/19 22 03/20/2021 IRON, TIBC AND TANIA TIN PANEL iron binding capacity 352 mcg/d L_(ca lc) 250-45 0 normal Not Available [facility] [address] [place], [address], 03/20/2021 14:03:48 03/17/19 22 03/20/2021 IRON, TIBC AND TANIA TIN PANEL % saturation 14 %_(ca lc) 16-45 low Not Available [facility] [address] [place], [address], 03/20/2021 14:03:48 03/17/19 22 03/20/2021 IRON, TIBC AND TANIA TIN PANEL ferritin 8 NG/mL 16-154 low Not Available [facility] [address], [address], 03/20/2021 14:03:48 03/24/19 22 03/25/2021 CORTI ZEV, A.M. cortisol, A.M. 0.5 mcg/d L low Refer ence Range 8 a.m. (7-9 a.m.) Speci men: 4.0-2 2.0 Not Available [facility] [address], [address], 03/25/2021 10:26:37 06/10/19 22 06/11/2021 TSH+F REE T4 TSH 6.47 mIU/L high Refer ence Range > or = 20 Years 0.40- 4.50 Pregn austin Range s First trime ster 0.26- 2.66 Secon d trime ster 0.55- 2.73 Third trime ster 0.43- 2.91 Not Available [facility] [address] [address] [place], [address], 06/11/2021 19:52:01 06/10/19 22 06/11/2021 TSH+F REE T4 T4, free 1.2 NG/dL 0.8-1. 8 normal Not Available [facility] [address] [address] [place], [address], 06/11/2021 19:52:01 06/10/19 22 06/11/2021 VITAM IN D,25- OH,TO ANDRA,I A vitamin D,25-oh,tota l,ia 35 NG/mL 30-100 normal Vitam in D Statu s 25-OH Vitam in D: Defic iency : <20 ng/mL Insuf ficie ncy: 20 - 29 ng/mL Optim al: > or = 30 ng/mL For 25-OH Vitam in D testi ng on patie nts on D2-schmitz pplem entat ion and patie nts for whom quant itati on of D2 and D3 fract ions is requi red, the [facility] Assur eD(TM ) 25-OH VIT D, (D2,D 3), LC/MS /MS is recom pola d: order code [id number] (sayra ents >2yrs ). See Note 1 Note 1 For addit ional infor christina brandt refer to http: //althea Das gnjames ics.c om/fa q/FAQ 199 (This link is being provi ded for infor kelsy castro/ cecil marx purpo ses only. ) Not Available [facility] [address] [address] [place], [address], 06/11/2021 19:52:00 06/10/19 22 06/11/2021 T3, FREE T3, free 2.9 pg/mL 2.3-4. 2 normal Not Available [facility] [address], [address], 06/11/2021 19:52:00 06/10/19 22 06/11/2021 VITAM IN B12/F OLATE , SERUM PANEL vitamin B12 1207 pg/mL 200-11 00 high Not Available [facility] [address], [address], 06/11/2021 19:51:59 06/10/1906/11/2021 VITAM IN B12/F OLATE , SERUM PANEL folate, serum 16.0 NG/mL normal Refer ence Range Low: <3.4 Borde rline : 3.4-5 .4 Brit l: >5.4 Not Available [facility] [address], [address], 06/11/2021 19:51:59 06/10/19 22 06/11/2021 INSUL IN insulin 14.8 uIU/m L normal Refer ence Range < or = 19.6 Risk: Optim al < or = 19.6 Moder ate NA High >19.6 Adult cardi ovasc ular event risk categ ory cut point s (opti mal, moder ate, high) are based on [facility] popul ation data from 01/29 11. This insul in assay shows stron g cross -reac tivit y for some insul in analo gs (lisp ro, aspar t, and glarg ine) and much lower cross -reac tivit y with other s (dete ryan, gluli sine) . Not Available [facility] [id number] [place] [address], [address], 06/11/2021 19:51:59 06/10/19 22 06/11/2021 DHEA SULFA TE DHEA sulfate 211 mcg/d L 19-237 normal Not Available [facility] [address], [place], [address], 06/11/2021 19:51:58 06/10/19 22 06/11/2021 THYRO ID PEROX IDASE ANTIB ODIES thyroid peroxidase antibodies 788 IU/mL <9 high Not Available [address], [address], 06/11/2021 19:51:58 06/10/19 22 06/11/2021 COMPR EHENS NIKUNJ METAB OLIC PANEL glucose 79 mg/dL 65-99 normal Fasti ng refer ence inter dipika Not Available [address], [address], 06/11/2021 19:51:57 06/10/19 22 06/11/2021 COMPR EHENS NIKUNJ METAB OLIC PANEL urea nitrogen (BUN) 9 mg/dL 7-25 normal Not Available [address], [address], 06/11/2021 19:51:57 06/10/19 22 06/11/2021 COMPR EHENS NIKUNJ METAB OLIC PANEL creatinine 0.65 mg/dL 0.50-1 .10 normal Not Available [address], [address], 06/11/2021 19:51:57 06/10/19 22 06/11/2021 COMPR EHENS NIKUNJ METAB OLIC PANEL eGFR non-afr. cuban 118 mL/mi n/1.7 3m2 > or = 60 normal Not Available [address], [address], 06/11/2021 19:51:57 06/10/19 22 06/11/2021 COMPR EHENS NIKUNJ METAB OLIC PANEL eGFR 137 mL/mi n/1.7 3m2 > or = 60 normal Not Available [address], [address], 06/11/2021 19:51:57 06/10/19 22 06/11/2021 COMPR EHENS NIKUNJ METAB OLIC PANEL BUN/creatini ne ratio not applic able (calc ) 6-22 Not Available [address], [address], 06/11/2021 19:51:57 06/10/19 22 06/11/2021 COMPR EHENS NIKUNJ METAB OLIC PANEL sodium 141 mmol/ L 135-14 6 normal Not Available [address], [address], 06/11/2021 19:51:57 06/10/19 22 06/11/2021 COMPR EHENS NIKUNJ METAB OLIC PANEL potassium 4.5 mmol/ L 3.5-5. 3 normal Not Available [address], [address], 06/11/2021 19:51:57 06/10/19 22 06/11/2021 COMPR EHENS NIKUNJ METAB OLIC PANEL chloride 104 mmol/ L 98-110 normal Not Available [address], [address], 06/11/2021 19:51:57 06/10/19 22 06/11/2021 COMPR EHENS NIKUNJ METAB OLIC PANEL carbon dioxide 26 mmol/ L 20-32 normal Not Available [address], [address], 06/11/2021 19:51:57 06/10/19 22 06/11/2021 COMPR EHENS NIKUNJ METAB OLIC PANEL calcium 9.3 mg/dL 8.6-10 .2 normal Not Available [address], [address], 06/11/2021 19:51:57 06/10/19 22 06/11/2021 COMPR EHENS NIKUNJ METAB OLIC PANEL protein, total 6.8 g/dL 6.1-8. 1 normal Not Available [address], [address], 06/11/2021 19:51:57 06/10/19 22 06/11/2021 COMPR EHENS NIKUNJ METAB OLIC PANEL albumin 4.1 g/dL 3.6-5. 1 normal Not Available [address], [address], 06/11/2021 19:51:57 06/10/19 22 06/11/2021 COMPR EHENS NIKUNJ METAB OLIC PANEL globulin 2.7 g/dL_ (calc ) 1.9-3. 7 normal Not Available [address], [address], 06/11/2021 19:51:57 06/10/19 22 06/11/2021 COMPR EHENS NIKUNJ METAB OLIC PANEL albumin/glob ulin ratio 1.5 (calc ) 1.0-2. 5 normal Not Available [address], [address], 06/11/2021 19:51:57 06/10/19 22 06/11/2021 COMPR EHENS NIKUNJ METAB OLIC PANEL bilirubin, total 0.4 mg/dL 0.2-1. 2 normal Not Available [address], [address], 06/11/2021 19:51:57 06/10/19 22 06/11/2021 COMPR EHENS NIKUNJ METAB OLIC PANEL alkaline phosphatase 87 U/L 31-125 normal Not Available [facility] [employer] [address], [address], 06/11/2021 19:51:57 06/10/19 22 06/11/2021 COMPR EHENS NIKUNJ METAB OLIC PANEL AST 14 U/L 10-30 normal Not Available [address], [address], 06/11/2021 19:51:57 06/10/19 22 06/11/2021 COMPR EHENS NIKUNJ METAB OLIC PANEL ALT 11 U/L 6-29 normal Not Available [address], [address], 06/11/2021 19:51:57 06/10/19 22 06/11/2021 TESTO STERO NE, FREE, BIOAV AILAB LE AND TOTAL , MS albumin 4.4 g/dL 3.6-5. 1 Not Available [address], [address], 06/11/2021 19:51:57 06/10/19 22 06/11/2021 TESTO STERO NE, FREE, BIOAV AILAB LE AND TOTAL , MS sex hormone binding globulin 118.1 nmol/ L 17-124 Not Available [address], [address], 06/11/2021 19:51:57 06/10/19 22 06/11/2021 TESTO STERO NE, FREE, BIOAV AILAB LE AND TOTAL , MS testosterone , free 1.3 pg/mL 0.2-5. 0 Not Available [address], [address], 06/11/2021 19:51:57 06/10/19 22 06/11/2021 TESTO STERO NE, FREE, BIOAV AILAB LE AND TOTAL , MS testosterone ,bioavailabl e 2.6 NG/dL 0.5-8. 5 Not Available [address], [address], 06/11/2021 19:51:57 06/10/19 22 06/11/2021 TESTO STERO NE, FREE, BIOAV AILAB LE AND TOTAL , MS testosterone , total, MS 34 NG/dL 2-45 For addit ional infor christina brandt e refer to https ://ed ucati on.qu estdi kellyos tics. com/f aq/FA Q165 (This link is being provi ded for infor matio nal/e ducat ional purpo ses only. ) (Note ) This test was devel oped and its malik tical perfo rmanc e jarrett cteri stics have been deter mined by [employer]. It has not been clear ed or appro mary by the FDA. This assay has been valid ated pursu ant to the CLIA regul ation s and is used for clini florentino purpo ses. MDF med fusio n [address] [facility] [address] [facility] [place] [address] [phone] Jose todd MD Not Available [facility] [address] [address] [place], [address], 06/11/2021 19:51:57 08/28/19 22 09/05/2021 PANCR EATIC ELAST ASE-1 pancreatic elastase-1 >500 mcg/g Adult and Pedia tric Refer ence Range s for Pancr eatic Elast ase-1 : Brit l: >200 mcg/g Moder ate Pancr eatic Insuf ficie ncy: 100-2 00 mcg/g Sever e Pancr eatic Insuf ficie ncy: <100 mcg/g Elast ase-1 (E-1) assay resul ts are expre ssed in mcg/g , which repre sent mcg E1/g feces . It is not neces tri to inter rupt enzym e subst ituti on thera py. Not Available [facility] [address] [address] [address], [place], [address], 09/05/2021 21:17:50 08/28/19 22 09/05/2021 YAQUELIN C DISEA SE DIAGN OSTIC PANEL tissue transglutami nase Ab, IgG tnp TEST NOT PERFO RMED No serum recei mary. Not Available [facility] [address] [place], [address], 09/05/2021 21:17:49 08/28/19 22 09/05/2021 YAQUELIN C DISEA SE DIAGN OSTIC PANEL gliadin (deamidated) Ab (IgA) tnp TEST NOT PERFO RMED No serum recei mary. Not Available [address], [address], 09/05/2021 21:17:49 08/28/19 22 09/05/2021 YAQUELIN C DISEA SE DIAGN OSTIC PANEL immunoglobul in A tnp TEST NOT PERFO RMED No serum recei mary. Not Available [address] [address] [place], [address], 09/05/2021 21:17:49 08/28/19 22 08/30/2021 FECAL FAT, QUALI TATIV E fecal fat, qualitative normal normal Not Available [address] [address] [place], [address], 08/30/2021 13:31:40 11/11/19 22 11/14/2021 TSH+F REE T4 TSH 4.27 mIU/L normal Refer ence Range > or = 20 Years 0.40- 4.50 Pregn austin Range s First trime ster 0.26- 2.66 Secon d trime ster 0.55- 2.73 Third trime ster 0.43- 2.91 Not Available [facility] [address] [address] [place], [address], 11/14/2021 15:04:20 11/11/1911/14/2021 TSH+F REE T4 T4, free 1.2 NG/dL 0.8-1. 8 normal Not Available [facility] [address] [address] [place], [address], 11/14/2021 15:04:20 11/11/19 22 11/14/2021 VITAM IN D,25- OH,TO ANDRA,I A vitamin D,25-oh,tota l,ia 37 NG/mL 30-100 normal Vitam in D Statu s 25-OH Vitam in D: Defic iency : <20 ng/mL Insuf ficie ncy: 20 - 29 ng/mL Optim al: > or = 30 ng/mL For 25-OH Vitam in D testi ng on patie nts on D2-schmitz pplem entat ion and patie nts for whom quant itati on of D2 and D3 fract ions is requi red, the [facility] Assur eD(TM ) 25-OH VIT D, (D2,D 3), LC/MS /MS is recom pola d: order code 05795 (sayra ents >2yrs ). See Note 1 Note 1 For addit ional infor christina brandt refer to http: //[facility] alisson Tobiasia gnost ics.c om/fa q/FAQ 199 (This link is being provi ded for infor kelsy castro/ cecil aguilerao ses only. ) Not Available [facility] [address], [address], 11/14/2021 15:04:20 11/11/19 22 11/14/2021 T3, FREE T3, free 3.0 pg/mL 2.3-4. 2 normal Not Available [facility] [address], [address], 11/14/2021 15:04:19 11/11/19 22 11/14/2021 VITAM IN B12/F OLATE , SERUM PANEL vitamin B12 >2000 pg/mL 200-11 00 high Not Available [facility] [address], [address], 11/14/2021 15:04:18 11/11/19 22 11/14/2021 VITAM IN B12/F OLATE , SERUM PANEL folate, serum 4.0 NG/mL low Refer ence Range Low: <3.4 Borde rline : 3.4-5 .4 Brit l: >5.4 Not Available [facility] [address], [address], 11/14/2021 15:04:18 11/11/19 22 11/14/2021 DHEA SULFA TE DHEA sulfate 171 mcg/d L 19-237 normal Not Available [address], [address], 11/14/2021 15:04:18 11/11/19 22 11/14/2021 YAQUELIN C DISEA SE DIAGN OSTIC PANEL tissue transglutami nase Ab, IgG <1.0 U/mL normal Value Inter preta tion ----- ----- ----- ---- <15.0 Antib boby not detec queenie > or = 15.0 Antib boby detec queenie Not Available [address], [address], 11/14/2021 15:04:18 11/11/19 22 11/14/2021 YAQUELIN C DISEA SE DIAGN OSTIC PANEL tissue transglutami nase Ab, IgA <1.0 U/mL normal Value Inter preta tion ----- ----- ----- ---- <15.0 Antib boby not detec queenie > or = 15.0 Antib boby detec queenie Not Available [address], [address], 11/14/2021 15:04:18 11/11/19 22 11/14/2021 YAQUELIN C DISEA SE DIAGN OSTIC PANEL gliadin (deamidated) Ab (IgA) <1.0 U/mL normal Value Inter preta tion ----- ----- ----- ---- <15.0 Antib boby not detec queenie > or = 15.0 Antib boby detec queenie Not Available [address], [address], 11/14/2021 15:04:18 11/11/19 22 11/14/2021 YAQUELIN C DISEA SE DIAGN OSTIC PANEL gliadin (deamidated) Ab (IgG) <1.0 U/mL normal Value Inter preta tion ----- ----- ----- ---- <15.0 Antib boby not detec queenie > or = 15.0 Antib boby detec queenie Not Available [address], [address], 11/14/2021 15:04:18 11/11/19 22 11/14/2021 YAQUELIN C DISEA SE DIAGN OSTIC PANEL immunoglobul in A 106 mg/dL 47-310 normal Not Available [address], [address], 11/14/2021 15:04:18 11/11/19 22 11/14/2021 COMPR EHENS NIKUNJ METAB OLIC PANEL glucose 72 mg/dL 65-99 normal Fasti ng refer ence inter dipika Not Available [address], [address], 11/14/2021 15:04:17 11/11/19 22 11/14/2021 COMPR EHENS NIKUNJ METAB OLIC PANEL urea nitrogen (BUN) 8 mg/dL 7-25 normal Not Available [address], [address], 11/14/2021 15:04:17 11/11/19 22 11/14/2021 COMPR EHENS NIKUNJ METAB OLIC PANEL creatinine 0.66 mg/dL 0.50-0 .97 normal Not Available [address], [address], 11/14/2021 15:04:17 11/11/19 22 11/14/2021 COMPR EHENS NIKUNJ METAB OLIC PANEL eGFR 119 mL/mi n/1.7 3m2 > or = 60 normal The eGFR is based on the CKD-E PI 2020 equat ion. To calcu late the new eGFR from a previ ous Creat inine or Cysta tin C resul t, go to https ://mignon [email or web address] gilmore/lisette cooley s/ kdoqi /gfr% 5Fcal culat or Not Available [address], [address], 11/14/2021 15:04:17 11/11/19 22 11/14/2021 COMPR EHENS NIKUNJ METAB OLIC PANEL BUN/creatini ne ratio not applic able (calc ) 6-22 Not Available [address], [address], 11/14/2021 15:04:17 11/11/19 22 11/14/2021 COMPR EHENS NIKUNJ METAB OLIC PANEL sodium 138 mmol/ L 135-14 6 normal Not Available [address], [address], 11/14/2021 15:04:17 11/11/19 22 11/14/2021 COMPR EHENS NIKUNJ METAB OLIC PANEL potassium 4.6 mmol/ L 3.5-5. 3 normal Not Available [address], [address], 11/14/2021 15:04:17 11/11/19 22 11/14/2021 COMPR EHENS NIKUNJ METAB OLIC PANEL chloride 105 mmol/ L 98-110 normal Not Available [address], [address], 11/14/2021 15:04:17 11/11/19 22 11/14/2021 COMPR EHENS NIKUNJ METAB OLIC PANEL carbon dioxide 25 mmol/ L 20-32 normal Not Available [address], [address], 11/14/2021 15:04:17 11/11/19 22 11/14/2021 COMPR EHENS NIKUNJ METAB OLIC PANEL calcium 9.3 mg/dL 8.6-10 .2 normal Not Available [address], [address], 11/14/2021 15:04:17 11/11/19 22 11/14/2021 COMPR EHENS NIKUNJ METAB OLIC PANEL protein, total 6.8 g/dL 6.1-8. 1 normal Not Available [address], [address], 11/14/2021 15:04:17 11/11/19 22 11/14/2021 COMPR EHENS NIKUNJ METAB OLIC PANEL albumin 3.9 g/dL 3.6-5. 1 normal Not Available [address], [address], 11/14/2021 15:04:17 11/11/19 22 11/14/2021 COMPR EHENS NIKUNJ METAB OLIC PANEL globulin 2.9 g/dL_ (calc ) 1.9-3. 7 normal Not Available [address], [address], 11/14/2021 15:04:17 11/11/19 22 11/14/2021 COMPR EHENS NIKUNJ METAB OLIC PANEL albumin/glob ulin ratio 1.3 (calc ) 1.0-2. 5 normal Not Available [address], [address], 11/14/2021 15:04:17 11/11/19 22 11/14/2021 COMPR EHENS NIKUNJ METAB OLIC PANEL bilirubin, total 0.4 mg/dL 0.2-1. 2 normal Not Available [address], [address], 11/14/2021 15:04:17 11/11/19 22 11/14/2021 COMPR EHENS NIKUNJ METAB OLIC PANEL alkaline phosphatase 84 U/L 31-125 normal Not Available [address], [address], 11/14/2021 15:04:17 11/11/19 22 11/14/2021 COMPR EHENS NIKUNJ METAB OLIC PANEL AST 12 U/L 10-30 normal Not Available [address], [address], 11/14/2021 15:04:17 11/11/19 22 11/14/2021 COMPR EHENS NIKUNJ METAB OLIC PANEL ALT 7 U/L 6-29 normal Not Available [address], [address], 11/14/2021 15:04:17 11/11/19 22 11/14/2021 TESTO STERO NE, FREE, BIOAV AILAB LE AND TOTAL , MS albumin 4.0 g/dL 3.6-5. 1 Not Available [address], [address], 11/14/2021 15:04:16 11/11/19 22 11/14/2021 TESTO STERO NE, FREE, BIOAV AILAB LE AND TOTAL , MS sex hormone binding globulin 151.9 nmol/ L 17-124 high Not Available [address], [address], 11/14/2021 15:04:16 11/11/1911/14/2021 TESTO STERO NE, FREE, BIOAV AILAB LE AND TOTAL , MS testosterone , free 0.9 pg/mL 0.2-5. 0 Not Available [address], [address], 11/14/2021 15:04:16 11/11/1911/14/2021 TESTO STERO NE, FREE, BIOAV AILAB LE AND TOTAL , MS testosterone ,bioavailabl e 1.7 NG/dL 0.5-8. 5 Not Available [address], [address], 11/14/2021 15:04:16 11/11/19 22 11/14/2021 TESTO STERO NE, FREE, BIOAV AILAB LE AND TOTAL , MS testosterone , total, MS 29 NG/dL 2-45 For addit ional infor christina brandt refer to https ://ed ucati on.qu estdi agnos tics. com/f aq/FA Q165 (This link is being provi ded for infor kelsy nal/e ducat ional purpo ses only. ) (Note ) This test was devel oped and its malik tical perfo rmanc e jarrett cteri stics have been deter mined by [employer]. It has not been clear ed or appro mary by the FDA. This assay has been valid ated pursu ant to the CLIA regul ation s and is used for clini florentino purpo ses. F med fusfarzaneh n [address] [facility] [address] [facility] [address] [phone] Jose todd MD Not Available [address] [address] [place], [address], 11/14/2021 15:04:16 04/21/19 23 04/25/2022 TESTO STERO NE, FREE, BIOAV AILAB LE AND TOTAL , MS albumin 4.1 g/dL 3.6-5. 1 Not Available [facility] [address] [place] [address] [place], [address], 04/25/2022 15:36:12 04/21/19 23 04/25/2022 TESTO STERO NE, FREE, BIOAV AILAB LE AND TOTAL , MS sex hormone binding globulin 161.5 nmol/ L 17-124 high Not Available [facility] [address] [address] [place], [address], 04/25/2022 15:36:12 04/21/19 23 04/25/2022 TESTO STERO NE, FREE, BIOAV AILAB LE AND TOTAL , MS testosterone , free 0.7 pg/mL 0.2-5. 0 Not Available [facility] [address] [place] [address] [place], [address], 04/25/2022 15:36:12 04/21/1904/25/2022 TESTO STERO NE, FREE, BIOAV AILAB LE AND TOTAL , MS testosterone ,bioavailabl e 1.4 NG/dL 0.5-8. 5 Not Available [address], [address], 04/25/2022 15:36:12 04/21/19 23 04/25/2022 TESTO STERO NE, FREE, BIOAV AILAB LE AND TOTAL , MS testosterone , total, MS 25 NG/dL 2-45 For addit ional infor christina brandt refer to https ://ed ucati on.qu estdi LeanAppss. com/f aq/FA Q165 (This link is being provi ded for infor kesly nal/e ducat ional purpo ses only. ) (Note ) This test was devel oped and its malik tical perfo rmanc e jarrett cteri stics have been deter mined by [employer]. It has not been clear ed or appro mary by the FDA. This assay has been valid ated pursu ant to the CLIA regul ation s and is used for clini florentino purpo ses. MDF med fusio n [address] [facility] [address] [facility] [address] [phone] Jose todd MD Not Available [address] [address] [place], [address], 04/25/2022 15:36:12 04/21/1904/25/2022 COMPR EHENS NIKUNJ METAB OLIC PANEL glucose 84 mg/dL 65-99 normal Fasti ng refer ence inter dipika Not Available [facility] [address] [place] [address] [place], [address], 04/25/2022 15:36:13 04/21/19 23 04/25/2022 COMPR EHENS NIKUNJ METAB OLIC PANEL urea nitrogen (BUN) 9 mg/dL 7-25 normal Not Available [facility] [place] [address] [address] [place], [address], 04/25/2022 15:36:13 04/21/19 23 04/25/2022 COMPR EHENS NIKUNJ METAB OLIC PANEL creatinine 0.71 mg/dL 0.50-0 .97 normal Not Available [address], [address], 04/25/2022 15:36:13 04/21/19 23 04/25/2022 COMPR EHENS NIKUNJ METAB OLIC PANEL eGFR 116 mL/mi n/1.7 3m2 > or = 60 normal The eGFR is based on the CKD-E PI 2020 equat ion. To calcu late the new eGFR from a previ ous Creat inine or Cysta tin C resul t, go to https ://mignon [email or web address].emmanuel gilmore/lisette cooley s/ kdoqi /gfr% 5Fcal culat or Not Available [address], [address], 04/25/2022 15:36:13 04/21/19 23 04/25/2022 COMPR EHENS NIKUNJ METAB OLIC PANEL BUN/creatini ne ratio NOT APPLIC ABLE (calc ) 6-22 Not Available [address], [address], 04/25/2022 15:36:13 04/21/19 23 04/25/2022 COMPR EHENS NIKUNJ METAB OLIC PANEL sodium 140 mmol/ L 135-14 6 normal Not Available [address], [address], 04/25/2022 15:36:13 04/21/19 23 04/25/2022 COMPR EHENS NIKUNJ METAB OLIC PANEL potassium 4.3 mmol/ L 3.5-5. 3 normal Not Available [address], [address], 04/25/2022 15:36:13 04/21/19 23 04/25/2022 COMPR EHENS NIKUNJ METAB OLIC PANEL chloride 103 mmol/ L 98-110 normal Not Available [address], [address], 04/25/2022 15:36:13 04/21/19 23 04/25/2022 COMPR EHENS NIKUNJ METAB OLIC PANEL carbon dioxide 26 mmol/ L 20-32 normal Not Available [address], [address], 04/25/2022 15:36:13 04/21/19 23 04/25/2022 COMPR EHENS NIKUNJ METAB OLIC PANEL calcium 9.5 mg/dL 8.6-10 .2 normal Not Available [address], [address], 04/25/2022 15:36:13 04/21/19 23 04/25/2022 COMPR EHENS NIKUNJ METAB OLIC PANEL protein, total 6.7 g/dL 6.1-8. 1 normal Not Available [address], [place], [address], 04/25/2022 15:36:13 04/21/19 23 04/25/2022 COMPR EHENS NIKUNJ METAB OLIC PANEL albumin 4.0 g/dL 3.6-5. 1 normal Not Available [address], [address], 04/25/2022 15:36:13 04/21/19 23 04/25/2022 COMPR EHENS NIKUNJ METAB OLIC PANEL globulin 2.7 g/dL_ (calc ) 1.9-3. 7 normal Not Available [address], [address], 04/25/2022 15:36:13 04/21/19 23 04/25/2022 COMPR EHENS NIKUNJ METAB OLIC PANEL albumin/glob ulin ratio 1.5 (calc ) 1.0-2. 5 normal Not Available [address], [address], 04/25/2022 15:36:13 04/21/19 23 04/25/2022 COMPR EHENS NIKUNJ METAB OLIC PANEL bilirubin, total 0.4 mg/dL 0.2-1. 2 normal Not Available [address], [address], 04/25/2022 15:36:13 04/21/19 23 04/25/2022 COMPR EHENS NIKUNJ METAB OLIC PANEL alkaline phosphatase 100 U/L 31-125 normal Not Available [address], [address], 04/25/2022 15:36:13 04/21/19 23 04/25/2022 COMPR EHENS NIKUNJ METAB OLIC PANEL AST 11 U/L 10-30 normal Not Available [address], [address], 04/25/2022 15:36:13 04/21/19 23 04/25/2022 COMPR EHENS NIKUNJ METAB OLIC PANEL ALT 7 U/L 6-29 normal Not Available [address], [address], 04/25/2022 15:36:13 04/21/19 23 04/25/2022 DHEA SULFA TE DHEA sulfate 188 mcg/d L 19-237 normal Not Available [address], [address], 04/25/2022 15:36:13 04/21/19 23 04/25/2022 VITAM IN B12/F OLATE , SERUM PANEL vitamin B12 487 pg/mL 200-11 00 normal Not Available [address], [address], 04/25/2022 15:36:14 04/21/19 23 04/25/2022 VITAM IN B12/F OLATE , SERUM PANEL folate, serum 20.6 NG/mL normal Refer ence Range Low: <3.4 Borde rline : 3.4-5 .4 Brit l: >5.4 Not Available [facility] [address] [place], [address], 04/25/2022 15:36:14 04/21/1904/25/2022 T3, FREE T3, free 2.8 pg/mL 2.3-4. 2 normal Not Available [facility] [address] [place], [address], 04/25/2022 15:36:14 04/21/19 23 04/25/2022 VITAM IN D,25- OH,TO ANDRA,I A vitamin D,25-oh,tota l,ia 35 NG/mL 30-100 normal Vitam in D Statu s 25-OH Vitam in D: Defic iency : <20 ng/mL Insuf ficie ncy: 20 - 29 ng/mL Optim al: > or = 30 ng/mL For 25-OH Vitam in D testi ng on patie nts on D2-schmitz pplem entat ion and patie nts for whom quant itati on of D2 and D3 fract ions is requi red, the [facility] Assur eD(TM ) 25-OH VIT D, (D2,D 3), LC/MS /MS is recom pola d: order code 18671 (sayra ents >2yrs ). See Note 1 Note 1 For addit ional infor christina brandt refer to http: //althea Tobiasia gnost ics.c om/fa q/FAQ 199 (This link is being provi ded for infor kelsy castro/ cecil marx purpo ses only. ) Not Available [facility] [address] [place], [address], 04/25/2022 15:36:15 04/21/1904/25/2022 TSH+F REE T4 TSH 6.13 mIU/L high Refer ence Range > or = 20 Years 0.40- 4.50 Pregn austin Range s First trime ster 0.26- 2.66 Secon d trime ster 0.55- 2.73 Third trime ster 0.43- 2.91 Not Available [address], [address], 04/25/2022 15:36:15 04/21/19 23 04/25/2022 TSH+F REE T4 T4, free 1.1 NG/dL 0.8-1. 8 normal Not Available [address], [address], 04/25/2022 15:36:15 07/28/19 23 08/01/2022 COMPR EHENS NIKUNJ METAB OLIC PANEL glucose 86 mg/dL 65-99 normal Fasti ng refer ence inter dipika Not Available [address], [address], 08/01/2022 16:35:37 07/28/19 23 08/01/2022 COMPR EHENS NIKUNJ METAB OLIC PANEL urea nitrogen (BUN) 9 mg/dL 7-25 normal Not Available [address], [address], 08/01/2022 16:35:37 07/28/19 23 08/01/2022 COMPR EHENS NIKUNJ METAB OLIC PANEL creatinine 0.76 mg/dL 0.50-0 .97 normal Not Available [address], [address], 08/01/2022 16:35:37 07/28/19 23 08/01/2022 COMPR EHENS NIKUNJ METAB OLIC PANEL eGFR 107 mL/mi n/1.7 3m2 > or = 60 normal The eGFR is based on the CKD-E PI 2020 equat ion. To calcu late the new eGFR from a previ ous Creat inine or Cysta mateus C resul t, go to https ://mignon lomeli.emmanuel gilmore/lisette cooley s/ kdoqi /gfr% 5Fcal culat or Not Available [address], [address], 08/01/2022 16:35:37 07/28/19 23 08/01/2022 COMPR EHENS NIKUNJ METAB OLIC PANEL BUN/creatini ne ratio NOT APPLIC ABLE (calc ) 6-22 Not Available [address], [address], 08/01/2022 16:35:37 07/28/19 23 08/01/2022 COMPR EHENS NIKUNJ METAB OLIC PANEL sodium 140 mmol/ L 135-14 6 normal Not Available [address], [address], 08/01/2022 16:35:37 07/28/19 23 08/01/2022 COMPR EHENS NIKUNJ METAB OLIC PANEL potassium 4.5 mmol/ L 3.5-5. 3 normal Not Available [address], [address], 08/01/2022 16:35:37 07/28/19 23 08/01/2022 COMPR EHENS NIKUNJ METAB OLIC PANEL chloride 104 mmol/ L 98-110 normal Not Available [address], [address], 08/01/2022 16:35:37 07/28/19 23 08/01/2022 COMPR EHENS NIKUNJ METAB OLIC PANEL carbon dioxide 27 mmol/ L 20-32 normal Not Available [address], [address], 08/01/2022 16:35:37 07/28/19 23 08/01/2022 COMPR EHENS NIKUNJ METAB OLIC PANEL calcium 9.0 mg/dL 8.6-10 .2 normal Not Available [address], [address], 08/01/2022 16:35:37 07/28/19 23 08/01/2022 COMPR EHENS NIKUNJ METAB OLIC PANEL protein, total 6.7 g/dL 6.1-8. 1 normal Not Available [address], [address], 08/01/2022 16:35:37 07/28/19 23 08/01/2022 COMPR EHENS NIKUNJ METAB OLIC PANEL albumin 4.1 g/dL 3.6-5. 1 normal Not Available [address], [address], 08/01/2022 16:35:37 07/28/19 23 08/01/2022 COMPR EHENS NIKUNJ METAB OLIC PANEL globulin 2.6 g/dL_ (calc ) 1.9-3. 7 normal Not Available [address], [address], 08/01/2022 16:35:37 07/28/19 23 08/01/2022 COMPR EHENS NIKUNJ METAB OLIC PANEL albumin/glob ulin ratio 1.6 (calc ) 1.0-2. 5 normal Not Available [address], [address], 08/01/2022 16:35:37 07/28/19 23 08/01/2022 COMPR EHENS NIKUNJ METAB OLIC PANEL bilirubin, total 0.4 mg/dL 0.2-1. 2 normal Not Available [address], [address], 08/01/2022 16:35:37 07/28/19 23 08/01/2022 COMPR EHENS NIKUNJ METAB OLIC PANEL alkaline phosphatase 83 U/L 31-125 normal Not Available [facility] [address], [address], 08/01/2022 16:35:37 07/28/19 23 08/01/2022 COMPR EHENS NIKUNJ METAB OLIC PANEL AST 11 U/L 10-30 normal Not Available [address], [address], 08/01/2022 16:35:37 07/28/19 23 08/01/2022 COMPR EHENS NIKUNJ METAB OLIC PANEL ALT 7 U/L 6-29 normal Not Available [address], [address], 08/01/2022 16:35:37 07/28/19 23 08/01/2022 DHEA SULFA TE DHEA sulfate 178 mcg/d L 19-237 normal Not Available [address], [address], 08/01/2022 16:35:38 07/28/19 23 08/01/2022 INSUL IN insulin 20.3 uIU/m L high Refer ence Range < or = 18.4 Risk: Optim al < or = 18.4 Moder ate NA High >18.4 Adult cardi ovasc ular event risk categ ory cut point s (opti mal, moder ate, high) are based on Insul in Refer ence Inter dipika studi es [facility] at [facility] in 2021. Not Available [address], [address], 08/01/2022 16:35:39 07/28/19 23 08/01/2022 VITAM IN B12/F OLATE , SERUM PANEL vitamin B12 >2000 pg/mL 200-11 00 high Not Available [address], [address], 08/01/2022 16:35:39 07/28/19 23 08/01/2022 VITAM IN B12/F OLATE , SERUM PANEL folate, serum 16.8 NG/mL normal Refer ence Range Low: <3.4 Borde rline : 3.4-5 .4 Brit l: >5.4 Not Available [facility] [address], [address], 08/01/2022 16:35:39 07/28/19 23 08/01/2022 T3, FREE T3, free 3.1 pg/mL 2.3-4. 2 normal Not Available [facility] [address] [address] [place], [address], 08/01/2022 16:35:40 07/28/19 23 08/01/2022 VITAM IN D,25- OH,TO ANDRA,I A vitamin D,25-oh,tota l,ia 33 NG/mL 30-100 normal Vitam in D Statu s 25-OH Vitam in D: Defic iency : <20 ng/mL Insuf ficie ncy: 20 - 29 ng/mL Optim al: > or = 30 ng/mL For 25-OH Vitam in D testi ng on patie nts on D2-schmitz pplem entat ion and patie nts for whom quant itati on of D2 and D3 fract ions is requi red, the [facility] e[facility](TM ) 25-OH VIT D, (D2,D 3), LC/MS /MS is recom pola d: order code 33343 (sayra ents >2yrs ). See Note 1 Note 1 For addit ional infor christina brandt e refer to http: //althea Das gnjames ics.c om/fa q/FAQ 199 (This link is being provi ded for infor kelsy castro/ cecil marx purpo ses only. ) Not Available [facility] [place] [address] [place], [address], 08/01/2022 16:35:41 07/28/19 23 08/01/2022 TSH+F REE T4 TSH 1.18 mIU/L normal Refer ence Range > or = 20 Years 0.40- 4.50 Pregn [place] Range s First trime ster 0.26- 2.66 Secon d trime ster 0.55- 2.73 Third trime ster 0.43- 2.91 Not Available [facility] [address] [place] [address] [place], [address], 08/01/2022 16:35:42 07/28/19 23 08/01/2022 TSH+F REE T4 T4, free 1.2 NG/dL 0.8-1. 8 normal Not Available [facility] [id number] [place], [address], 08/01/2022 16:35:42 07/28/1908/01/2022 TESTO STERO NE, FREE (DIAL YSIS) AND TOTAL ,MS testosterone , total, MS 24 NG/dL 2-45 For addit ional infor christina brandt refer to https ://ed ati on.qu estdi [employer]. com/f aq/FA Q165 (This link is being provi ded for infor kelsy nal/e ducat ional purpo ses only. ) (Note ) This test was devel oped and its malik tical perfo rmanc e jarrett cteri stics have been deter mined by [employer]. It has not been clear ed or appro mary by the FDA. This assay has been valid ated pursu ant to the CLIA regul ation s and is used for clini florentino purpo ses. Not Available [facility] [id number] [place], [address], 08/01/2022 16:35:43 07/28/1908/01/2022 TESTO STERO NE, FREE (DIAL YSIS) AND TOTAL ,MS testosterone , free 1.1 pg/mL 0.1-6. 4 (Note ) This test was devel oped and its malik tical perfo rmanc e jarrett cteri stics have been deter mined by [employer]. It has not been clear ed or appro mary by the FDA. This assay has been valid ated pursu ant to the CLIA regul ation s and is used for clini florentino purpo ses. JOHNATHON med fusfarzaneh n [address] [facility] [address] [place] [address] [phone] Jose todd MD Not Available [facility] [address] [place], [address], 08/01/2022 16:35:43 10/20/1910/24/2022 COMPR EHENS NIKUNJ METAB OLIC PANEL glucose 75 mg/dL 65-99 normal Fasti ng refer ence inter dipika Not Available [address], [address], 10/24/2022 16:54:19 10/20/1910/24/2022 COMPR EHENS NIKUNJ METAB OLIC PANEL urea nitrogen (BUN) 12 mg/dL 7-25 normal Not Available [address], [address], 10/24/2022 16:54:19 10/20/1910/24/2022 COMPR EHENS NIKUNJ METAB OLIC PANEL creatinine 0.75 mg/dL 0.50-0 .97 normal Not Available [address], [address], 10/24/2022 16:54:19 10/20/1910/24/2022 COMPR EHENS NIKUNJ METAB OLIC PANEL eGFR 108 mL/mi n/1.7 3m2 > or = 60 normal Not Available [address], [address], 10/24/2022 16:54:19 10/20/1910/24/2022 COMPR EHENS NIKUNJ METAB OLIC PANEL BUN/creatini ne ratio SEE NOTE: (calc ) 6-22 Not Repor queenie: BUN and Creat inine are withi n refer ence range . Not Available [address], [address], 10/24/2022 16:54:19 10/20/1910/24/2022 COMPR EHENS NIKUNJ METAB OLIC PANEL sodium 139 mmol/ L 135-14 6 normal Not Available [address], [address], 10/24/2022 16:54:19 10/20/1910/24/2022 COMPR EHENS NIKUNJ METAB OLIC PANEL potassium 4.5 mmol/ L 3.5-5. 3 normal Not Available [address], [address], 10/24/2022 16:54:19 10/20/1910/24/2022 COMPR EHENS NIKUNJ METAB OLIC PANEL chloride 102 mmol/ L 98-110 normal Not Available [address], [address], 10/24/2022 16:54:19 10/20/19 23 10/24/2022 COMPR EHENS NIKUNJ METAB OLIC PANEL carbon dioxide 27 mmol/ L 20-32 normal Not Available [address], [address], 10/24/2022 16:54:19 10/20/1910/24/2022 COMPR EHENS NIKUNJ METAB OLIC PANEL calcium 9.5 mg/dL 8.6-10 .2 normal Not Available [address], [address], 10/24/2022 16:54:19 10/20/1910/24/2022 COMPR EHENS NIKUNJ METAB OLIC PANEL protein, total 6.9 g/dL 6.1-8. 1 normal Not Available [address], [address], 10/24/2022 16:54:19 10/20/1910/24/2022 COMPR EHENS NIKUNJ METAB OLIC PANEL albumin 4.1 g/dL 3.6-5. 1 normal Not Available [address], [address], 10/24/2022 16:54:19 10/20/1910/24/2022 COMPR EHENS NIKUNJ METAB OLIC PANEL globulin 2.8 g/dL_ (calc ) 1.9-3. 7 normal Not Available [address] [place], [address], 10/24/2022 16:54:19 10/20/1910/24/2022 COMPR EHENS NIKUNJ METAB OLIC PANEL albumin/glob ulin ratio 1.5 (calc ) 1.0-2. 5 normal Not Available [address], [address], 10/24/2022 16:54:19 10/20/19 23 10/24/2022 COMPR EHENS NIKUNJ METAB OLIC PANEL bilirubin, total 0.4 mg/dL 0.2-1. 2 normal Not Available [address], [address], 10/24/2022 16:54:19 10/20/19 23 10/24/2022 COMPR EHENS NIKUNJ METAB OLIC PANEL alkaline phosphatase 80 U/L 31-125 normal Not Available [address], [address], 10/24/2022 16:54:19 10/20/1910/24/2022 COMPR EHENS NIKUNJ METAB OLIC PANEL AST 13 U/L 10-30 normal Not Available [address], [address], 10/24/2022 16:54:19 10/20/19 23 10/24/2022 COMPR EHENS NIKUNJ METAB OLIC PANEL ALT 10 U/L 6-29 normal Not Available [address], [address], 10/24/2022 16:54:19 10/20/1910/24/2022 DHEA SULFA TE DHEA sulfate 174 mcg/d L 19-237 normal Not Available [address], [address], 10/24/2022 16:54:20 10/20/19 23 10/24/2022 INSUL IN insulin 10.5 uIU/m L normal Refer ence Range < or = 18.4 Risk: Optim al < or = 18.4 Moder ate NA High >18.4 Adult cardi ovasc ular event risk categ ory cut point s (opti mal, moder ate, high) are based on Insul in Refer ence Inter dipika studi es perfo rmed at [facility] Diagn [facility]stic s in 2021. Not Available [facility] [address] [address] [place], [address], 10/24/2022 16:54:21 10/20/19 23 10/24/2022 VITAM IN B12/F OLATE , SERUM PANEL vitamin B12 462 pg/mL 200-11 00 normal Not Available [facility] [address] [address] [place], [address], 10/24/2022 16:54:22 10/20/19 23 10/24/2022 VITAM IN B12/F OLATE , SERUM PANEL folate, serum 20.4 NG/mL normal Refer ence Range Low: <3.4 Borde rline : 3.4-5 .4 Brit l: >5.4 Not Available [facility] [address] [address] [place], [address], 10/24/2022 16:54:22 10/20/19 23 10/24/2022 T3, FREE T3, free 2.7 pg/mL 2.3-4. 2 normal Not Available [facility] [address] [address] [place], [address], 10/24/2022 16:54:23 10/20/19 23 10/24/2022 VITAM IN D,25- OH,TO ANDRA,I A vitamin D,25-oh,tota l,ia 30 NG/mL 30-100 normal Vitam in D Statu s 25-OH Vitam in D: Defic iency : <20 ng/mL Insuf ficie ncy: 20 - 29 ng/mL Optim al: > or = 30 ng/mL For 25-OH Vitam in D testi ng on patie nts on D2-schmitz pplem entat ion and patie nts for whom quant itati on of D2 and D3 fract ions is requi red, the [facility] Assur eD(TM ) 25-OH VIT D, (D2,D 3), LC/MS /MS is recom pola d: order code 67462 (sayra ents >2yrs ). See Note 1 Note 1 For addit ional infor christina brandt refer to http: //[facility] alisson Tobiasia gnost ics.c om/fa q/FAQ 199 (This link is being provi ded for infor matfarzaneh nal/ educa rony l purpo ses only. ) Not Available [facility] [address], [address], 10/24/2022 16:54:23 10/20/1910/24/2022 TSH+F REE T4 TSH 3.73 mIU/L normal Refer ence Range > or = 20 Years 0.40- 4.50 Pregn austin Range s First trime ster 0.26- 2.66 Secon d trime ster 0.55- 2.73 Third trime ster 0.43- 2.91 Not Available [facility] [address], [address], 10/24/2022 16:54:24 10/20/1910/24/2022 TSH+F REE T4 T4, free 1.0 NG/dL 0.8-1. 8 normal Not Available [facility] [address], [address], 10/24/2022 16:54:24 10/20/1910/24/2022 TESTO STERO NE, FREE (DIAL YSIS) AND TOTAL ,MS testosterone , total, MS 28 NG/dL 2-45 For addit ional infor christina brandt refer to https ://ed ucati on.qu estdi Lean[employer]. com/f aq/FA Q165 (This link is being provi ded for infor matio nal/e ducat ional purpo ses only. ) (Note ) This test was devel oped and its malik tical perfo rmanc e jarrett cteri stics have been deter mined by [employer]. It has not been clear ed or appro mary by the FDA. This assay has been valid ated pursu ant to the CLIA regul ation s and is used for clini florentino purpo ses. Not Available [facility] [address] [place], [address], 10/24/2022 16:54:25 10/20/19 23 10/24/2022 TESTO STERO NE, FREE (DIAL YSIS) AND TOTAL ,MS testosterone , free 1.6 pg/mL 0.1-6. 4 (Note ) This test was devel oped and its malik tical perfo rmanc e jarrett cteri stics have been deter mined by [employer]. It has not been clear ed or appro mary by the FDA. This assay has been valid ated pursu ant to the CLIA regul ation s and is used for clini florentino purpo ses. MDF med fusio n [address] [facility] [address] [facility] [address] [phone] Stephan barrett MD Not Available [facility] [address] [address] [address], [place], [address], 10/24/2022 16:54:25 08/23/19 22 08/22/2021 US, trans vagin al No observ ation record ed. [id number] [facility] [address], [place], [address], 04/10/2022 18:20:51 07/28/19 23 07/27/2022 US, thyro id No observ ation record ed. [email or web address] [facility] [address], [place], [address], 08/03/2022 23:23:36 Result Notes None recorded. Problems Name Problem SNOMED Code Status Onset Date Resolution Date Notes Provider Name and Address Organization Details Recorded Time Closed fracture of metatarsal bone 77796774 Active Not Available [facility] 3 18:19:45 Fracture of lower leg 795399746 Active Not Available [facility] 3 18:19:45 Polycystic ovary syndrome 009421307 Active 2021 Not Available [facility] 3 18:19:45 Vitamin D deficiency 38848385 Active 2021 Not Available [facility] 3 18:19:45 Loose stool 689625628 Active 2021 Not Available [facility] 3 18:19:45 Hypothyroidis m 13955303 Active 2021 Not Available [facility] 3 18:19:45 Vitamin B12 deficiency (non anemic) 49457414 Active 2021 Not Available [facility] 3 18:19:45 Irregular periods 97482527 Active 2021 Not Available [facility] 3 18:19:46 Thyroid nodule 560987303 Active 2022 Gretta Maldonado MD [address] [place] [address] [address], [place], [address] , [facility] [employer] 3 15:50:28 Problem Notes None recorded. Procedures Surgical History Date Name Laterality Status Provider Name and Address Organization Details Recorded Time laparoscopic sleeve gastrectomy completed Not Available [facility] 04/10/2022 18:19:18 procedure on oral cavity completed Not Available [facility] 04/10/2022 18:19:18 Imaging Results None recorded. Procedure Notes None recorded. Medical Equipment None Reported. Medications Name Sig Start Date Stop Date Status Note LastModified by Organization Details LastModified Time syringe (disposab le) 1 mL use to inject B12 SQ weekly active Not Available Not Available No t Available citalopra m 40 mg tablet 01/19 completed Not Available Not Available Not Available benzonata te 200 mg capsule 07/01 completed Not Available Not Available Not Available hydrocodo ne 5 mg-acetam inophen 325 mg tablet TK1 T PO Q 4 H PRF PAIN 01/19 completed Not Available Not Available Not Available Synthroid 125 mcg tablet Take 1 tablet(s ) every day by oral route in the morning for 90 days. 10/28 completed Not Available Not Available Not Available prednison e 20 mg tablet 07/01 completed Not Available Not Available Not Available Synthroid 100 mcg tablet TAKE 1 TABLET DAILY IN THE MORNING FOR HYPOTHYR OIDISM 07/01 completed Not Available Not Available Not Available citalopra m 20 mg tablet 01/19 completed Not Available Not Available Not Available Synthroid 25 mcg tablet 01/19 completed Not Available Not Available Not Available dexametha sone 1 mg tablet Take 1 tablet as needed by oral route at bedtime for 1 day. 11/19 completed take dexa tablet at 10 pm night before 8 am cortisol Not Available Not Available Not Available cyanocoba nguyen (vit B-12) 1,000 mcg/mL injection solution Inject 1 mL every week by subcutan eous route in the morning for 90 days. active Not Available Not Available No t Available fluoxetin e 20 mg tablet 01/19 completed Not Available Not Available Not Available Synthroid 50 mcg tablet 04/05 completed Not Available Not Available Not Available omeprazol e 20 mg capsule,d elayed release TAKE 1 CAPSULE DAILY active Not Available Not Available No t Available insulin syringe U-100 with needle 1 mL 31 gauge x 06/25 active Not Available Not Available Not Available ibuprofen 600 mg tablet TK 1 T PO Q 6 H PRN 10/28 completed Not Available Not Available Not Available fluticaso ne propionat e 50 mcg/actua tion nasal spray,sarah pension 10/28 completed Not Available Not Available Not Available metformin ER 500 mg tablet,ex tended release 24 hr TAKE 1 TABLET TWICE A DAY BEFORE MEALS active Not Available Not Available No t Available sertralin e 50 mg tablet active Not Available Not Available Not Available spironola ctone 50 mg tablet TAKE 2 TABLETS DAILY IN THE MORNING active Not Available Not Available No t Available Monoject Insulin Syringe 1 mL 29 gauge x 1/2 active Not Available Not Available Not Available insulin syringe U-100 with needle 0.3 mL 29 gauge inject B12 once weekly x 90 days 10/28 completed Not Available Not Available Not Available Synthroid 137 mcg tablet Take 1 tablet every day by oral route in the morning for 90 days. active Not Available Not Available No t Available zolpidem ER 6.25 mg tablet,ex tended release,m ultiphase 07/01 completed Not Available Not Available Not Available Lo Loestrin Fe 1 mg-10 mcg (24)/10 mcg (2) tablet Take 1 tablet every day by oral route in the morning for 90 days. active Not Available Not Available No t Available Vitamin D3 50 mcg (2,000 unit) capsule TAKE 2 CAPSULE BY MOUTH EVERY MORNING active Not Available Not Available No t Available Kurvelo (28) 0.15 mg-0.03 mg tablet 07/01 completed Not Available Not Available Not Available [employer] COVID-19 Antigen Home Test kit 10/28 completed Not Available Not Available Not Available Vitals Date Recorded Body mass index (BMI) Body height Oxygen saturation Oxygen saturation in Arterial blood by Pulse oximetry Heart rate Body temperature Body weight Systolic And Diastolic Provider Name and Address Organization Details Last Updated DateTime 2 45.8 kg/m2 180.34 cm 97 % 97 % 84 /min 97.8 [degF] 271917. 09 g 135/75 mm[Hg] Not Available [facility] 3 18:19:36 Date Recorded Body height Body mass index (BMI) Body weight Body temperature Heart rate Systolic And Diastolic Provider Name and Address Organization Details Last Updated DateTime 3 180.34 cm 40.9 kg/m2 730884. 72 g 96.9 [degF] 96 /min 128/85 mm[Hg] DANNY Arreola [email or web address] 3 15:42:16 Date Recorded Body mass index (BMI) Body height Oxygen saturation Oxygen saturation in Arterial blood by Pulse oximetry Heart rate Body temperature Body weight Systolic And Diastolic Provider Name and Address Organization Details Last Updated DateTime 2 44.8 kg/m2 180.34 cm 98 % 98 % 90 /min 98 [degF] 767825. 15 g 130/75 mm[Hg] Not Available [facility] 3 18:19:36 Date Recorded Body height Body mass index (BMI) Body weight Heart rate Systolic And Diastolic Provider Name and Address Organization Details Last Updated DateTime 10/28/2022 180.34 cm 40.6 kg/m2 859657.1 g 84 /min 128/83 mm[Hg] Sharon Boothe [email or web address] 10/28/2022 15:16:50 Date Recorded Body mass index (BMI) Body height Oxygen saturation Oxygen saturation in Arterial blood by Pulse oximetry Heart rate Body weight Systolic And Diastolic Provider Name and Address Organization Details Last Updated DateTime 2 44 kg/m2 180.34 cm 96 % 96 % 94 /min 786424. 47 g 105/78 mm[Hg] Not Available [facility] 3 18:19:36 Social History Question Answer Notes LastModified by [employer] Details LastModified Time Tobacco Smoking Status Never Smoker santy [place], [place] - S R2G 10/28/2022 14:54:06 If You Are , What Was Your Level Of Alcohol Consumption Prior To ? None [email or web address] Information not available 10/28/2022 What Is Your Level Of Caffeine Consumption? Moderate [id number] Information not available 04/10/2022 In The 14 Days Before Symptom Onset, Have You Had Close Contact With A Laboratory-confirm ed COVID-19 While That Case Was Ill? No [email or web address] Information n ot available 10/28/2022 In The 14 Days Before Symptom Onset, Have You Had Close Contact With A Person Who Is Under Investigation For COVID-19 While That Person Was Ill? No [email or web address] Information not available 10/28/2022 What Is The Highest Grade Or Level Of School You Have Completed Or The Highest Degree You Have Received? [id number] Information not available 10/28/2022 What Is Your Relationship Status? [id number] Information not available 04/10/2022 Has Tobacco Cessation Counseling Been Provided? No [email or web address] Information not available 10/28/2022 Have You Recently Traveled Abroad? No [email or web address] Information not available 10/28/2022 Sex: Female Functional Status Question Answer Note LastModified by [employer] Details LastModified Time Do you use any illicit or recreational drugs? No [email or web address] Information not available 10/28/2022 Do you or have you ever used any other forms of tobacco or nicotine? No [email or web address] Information not available 10/28/2022 What is your level of alcohol consumption? 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 Family History Relationship Description Onset Age of this Age Resolved Age Notes LastModified by Organization Details LastModified Time Maternal Grandmother Malignant neoplasm of breast [id number] Not available 04/10/2022 18:19:19 Medical History Condition Response OBESITY Y DEPRESSION (INCLUDING POST ) Y ANEMIA/BLOOD DISORDER Y INSOMNIA Y HYPOTHYROIDISM Y Gynecological HistoryNo gynecological history recorded. Obstetrics History GPAL:G 0 P 0 0 0 0 Past Encounters Encounter ID Performer Location Encounter Start Date Encounter Closed Date Diagnosis/Indication Diagnosis SNOMED-CT Code Diagnosis ICD10 Code Diagnosis IMO Codes Diagnosis Note [id number] Gretta Maldonado MD [facility] [address] [place] [address] 01/19/2021 00:00:00 01/19/2021 18:21:48 [id number] Gretta Maldonado MD [facility] [address] [place] [address] 04/02/2021 00:00:00 04/02/2021 12:24:18 [id number] Gretta Maldonado MD [facility] [place] [address] [place] [address] 07/30/2021 00:00:00 07/30/2021 13:47:56 [id number] [facility] [place] [address] [place] [address] 11/19/2021 00:00:00 11/19/2021 14:59:08 [id number] Gretta Maldonado MD [facility] [place] [address] [place] [address] 07/01/2022 15:20:23 07/01/2022 16:27:28 Hypothyroidism 71719630 E03.9 Continue synthroid 125 mcg daily- repeat thyroid panel in July. She was reminded to take her synthroid on empty stomach with glass of water and wait one hour to eat or have her coffee in morning and up to 4 hours if ever taking any heartburn or reflux medication s to help optimize absorption . Discussed paleo like diet with restrictio n of GMOs to help with energy and to optimize absorption of vitamins and minerals and reduce inflammati on. Vitamin B1 2 deficiency (non anemic) 98258992 E53.8 Continue on B12 injections as patient tolerating well. Vitamin D deficiency 347 [address]88 E55.9 Continue on vitamin D supplement ation 8524-7074 IU daily depending on sun exposure. Polycystic ovary syndrome 546444173 E28.2 Continue on spironolac tone and metformin for insulin senstizati on- glucose and testostero ne in ideal range. Recommende d up to 60 grams of carbs a day split into 6 small 10 gram carb meals or three larger 20 gram carb meals in addition to up to 70 grams of protein daily split into 10-15 grams for 5-6 smaller meals. The recommende d diet should be one of which she can incorporat e on a daily basis that will not modulate her lifestyle - discussed a diet of increased fiber; decreased refined carbohydra emily, trans fats, and saturated fats with focus on monounsatu rated fats such as unprocesse d chicken, turkey, nuts (excluding peanuts) and beans. Thyroid nodule 582879240 E04.1 Will send for repeat thyroid ultrasound as she does have a palpable thyroid and repeat thyroid function panel to assess function. Need to rule out any evidence of new nodules along with change in architectu re or echotextur e of thyroid that would suggest chronic thyroiditi s/autoimmu ne changes. Spent up to 28 minutes preparing to see the patient (eg, review of tests), obtaining and/or reviewing separately obtained history, performing a medically appropriat e examinatio n and evaluation , counseling and educating the patient, ordering medication s, tests, along with documentin g clinical informatio n in the electronic health record, independen tly interpreti ng results and communicat ing results to the patient. RTC in 4 months. Patient was provided a handwritte n lab order which contains our fax number. If she chooses to go outside of the [facility] system to obtain labwork she was advised to provide our fax number and my informatio n to the lab she will be obtaining labwork from in order to have her labs properly forwarded over for me to review so there is no loss of follow up due to use of outside network. She was also advised to contact our clinic informing us that she has completed her labwork so we are aware we will need to reach out to the appropriat e laboratory to request her results be forwarded to us so I might have the ability to review and make further medical decision making in her case. She voiced understand ing. [id number] Gretta Maldonado MD [facility] [place] [address] [place] [address] 10/28/2022 14:52:48 10/28/2022 15:40:27 Hypothyroidism 47286182 E03.9 Continue synthroid but uptitrate to 137 mcg daily as her TSH is elevated with low normal FT4. She was reminded to take her synthroid on empty stomach with glass of water and wait one hour to eat or have her coffee in morning and up to 4 hours if ever taking any heartburn or reflux medication s to help optimize absorption . Discussed paleo like diet with restrictio n of GMOs to help with energy and to optimize absorption of vitamins and minerals and reduce inflammati on. Polycystic ovary syndrome 860740002 E28.2 Continue on spironolac tone and metformin for insulin senstizati on- glucose and testostero ne in ideal range. Recommende d up to 60 grams of carbs a day split into 6 small 10 gram carb meals or three larger 20 gram carb meals in addition to up to 70 grams of protein daily split into 10-15 grams for 5-6 smaller meals. The recommende d diet should be one of which she can incorporat e on a daily basis that will not modulate her lifestyle - discussed a diet of increased fiber; decreased refined carbohydra emily, trans fats, and saturated fats with focus on monounsatu rated fats such as unprocesse d chicken, turkey, nuts (excluding peanuts) and beans. 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 Vitamin B1 2 deficiency (non anemic) 69735263 E53.8 Continue on B12 injections as patient tolerating well. Spent up to 25 minutes preparing to see the patient (eg, review of tests), obtaining and/or reviewing separately obtained history, performing a medically appropriat e examinatio n and evaluation , counseling and educating the patient, ordering medication s, tests, along with documentin g clinical informatio n in the electronic health record, hyacinth roberts interpreti ng results and communicat ing results to the patient. Patient can be followed by PCP - she/he is aware of my resignatio n and last day of November 22. If needed his/her PCP can refer patient to another endocrinol ogist in the area. All questions /concerns answered and refills necessary at visit today. Health Concerns Section Related Observation LastModified by Organization Detai ls LastModified Time None Recorded Concern Status LastModified by Organization Details LastModified Time None Recorded Advance Directives Directive None Recorded Payers Insurance Date Sequence Insurance Name Policy Number Policy Hare Covered Member ID Hare Member ID Guarantor Name 10/25/2022 1 [facility] [id number] Michelle E Parcels [id number] Michelle Parcels 10/25/2022 2 [place] [id number] Michelle Parcels [id number] Michelle Parcels Notes Date Note Type Note Provider Name and Address Organization Details Recorded Time 07/01/2022 text/html ROS as noted in the HPI 31 yo female comes in for follow up in management of hypothyroidism, PCOS, vit D/B12 def. last seen in Nov at that time we continued synthroid 100 mcg daily. we continued metformin and spironolactone. we continued B12 injections along with vit D supplementation. we have since increased her synthroid to 125 mcg daily.She just had some iron infusions as her iron sat was quite low. She had a transvaginal u/s several years ago and may have fibroids. She has lost over 20 pounds since fall 2021 with low carb / low fat diet. labs from 04/20/22:TSH of 6.13 uIU/mlFT4 of 1.1 ng/dLFT3 of 2.8 pg/MLvit D 35 ng/MLB12 487 pg/mlfolate normaldheas 188 ug/mlglucose 84 mg/dLCr normalLFT normaltestosterone 25 ng/dL Gretta Maldonado MD [address] [facility], [facility] [address], [place], [address], [facility] R2G 07/01/2022 16:50:17 10/28/2022 text/html ROS as noted in the HPI 32 yo female comes in for follow up in management of hypothyroidism, PCOS and B12 injections. last seen in June at that time we continued synthroid 125 mcg daily along with B12 injections and vitamin D 3 4000 IU daily. we continued metformin and spironolactone for PCOS management. thyroid u/s from July revealed 1.1 cm left thyroid nodule she has no pain or pressure in her thyroid. she has lost over 30 pounds and feeling better overall since getting her thyroid more situated. labs from 10/19/22:glucose 75 mg/dLCr normalLFT normaltestosterone 28 ng/dLTSH of 3.73 uIU/mlFT4 of 1.0 ng/dLvit D 30 ng/MLFT3 of 2.7 pg/MLB12 462 pg/mLfolate normalinsulin 10.5 uU/mldheas 174 ug/mL Gretta Maldonado MD [address] [facility], [facility] [address], [place], [id number], [place] [facility] 10/28/2022 16:38:32 OBGyn Episode No OBEpisode recorded.
== END 2024-11-20 09:54 | disposition home or self-care (01) ==
LOC: ANHCARD 09:57
PROVIDERS: Visit Provider Podiatrist Foot & Ankle Surgery
DX: Z01.818 Encounter for other preprocedural examination (principal); R94.31 Abnormal electrocardiogram [ECG] [EKG]
CPT/HCPCS: 93005

== ENCOUNTER 2024-12-26 16:37 | Emergency (ER) | payer OTHER, SELFPAY ==
--- OUTSIDE RECORDS SUMMARY | 2017-01-16 04:00 | XMS_ITS | Continuity of Care Document ---
Author Organization [id number] - [employer] [facility] Address [address] [place] [address] Phone Care Team Providers Care Garde Manager Name Role Phone Lc Joshi MD Unavailable Unavailable Allergies, Adverse Reactions, Alerts Substance Reaction Status Criticality No Known Allergies Active No Inform ation Medications Medication Instructions Dosage Effective Dates (start - stop) Status Comments omeprazole 20 mg capsule,delayed release take 1 capsule by oral route every day 30 minutes to 1 hour before a meal 20 MG - Active citalopram 20 mg tablet take 1 tablet by oral route every day 20 MG - Active Procedures Procedure Date OFFICE/OUTPT EM EST PROB FOCUS/STRFWD 10 MINS OFFICE/OUTPT EM EST PROB FOCUS/STRFWD 10 MINS POSTOP FOLLOW UP VISIT RELATED TO ORIGIN AL PX POSTOP FOLLOW UP VISIT RELATED TO ORIGIN AL PX Laparoscopy surgicla gastric restrictive procedure OFFICE/OUTPT EM EST PROB FOCUS/STRFWD 10 MINS OFFICE/OUTPT EM NEW COMPREH/MODERATE 45 MINS Advance Directives Directive Yes / No Effective Date File Name No Information Encounters Encounter Description Practice Location Reason(s) For Visit Diagnoses Date Provider Providers Copied on Encounter OFFICE/OUTPT EM EST PROB FOCUS/STRFWD 10 MINS [id number] [facility], [address], [place], [address], [place] tel:[phone] PMS Bariatric Morbid obesity 201 7 Madelyn Platt. [address], [address], [id number]. tel:[phone] Referring Provider: Shane Mcgregor, [address], [place], [address]. tel:[phone] OFFICE/OUTPT EM EST PROB FOCUS/STRFWD 10 MINS [id number] - [facility] Windows Systems Architect [employer], [address], [address], tel:[phone] PMS My New Self Bariatric No Information 7 Madelyn Platt. [address], [address], [id number]. tel:[phone] Referring Provider: Lc Allan, [facility] [address], [address]. tel:[phone] [id number] - [place] [employer] Systems Architect [employer], [address], [address], tel:[phone] PMS My New Self Bariatric No Information Aug-0 7 Madelyn Platt. [address], [address], [id number]. tel:[phone] Referring Provider: Shane Mcgregor, [address], [place], [address]. tel:[phone] [id number] - [facility] Windows Systems Architect [employer], [address], [address], tel:[phone] PMS My New Self Bariatric No Information Jul- 7 Madelyn Platt. [address], [address], [id number]. tel:[phone] Referring Provider: [address], [place], [address]. tel:[phone] [id number] - [facility] Windows Systems Architect [employer], [address], [address], tel:[phone] PMS My New Self Bariatric No Information Madelyn Platt. [address], [address], [id number]. tel:[phone] Referring Provider: Shane Mcgregor, [address], [place], [address]. tel:[phone] OFFICE/OUTPT EM EST PROB FOCUS/STRFWD 10 MINS [id number] - [facility] sFreedom of the Press FoundationMIN[facility], [address], [address], tel:[phone] PMS My New Self Bariatric No Information Madelyn Platt. [address], [address], [id number]. tel:[phone] Referring Provider: Shane Mcgregor, [address], [place], [address]. tel:[phone] OFFICE/OUTPT EM NEW COMPREH/MODER ATE 45 MINS [id number] - [place] Windows Systems Architect sFreedom of the Press FoundationMINNE[facility], [address] [address], [place], [address], tel:[phone] PMS My New Self Bariatric No Information Madelyn Platt. [address], [address], [id number]. tel:[phone] Referring Provider: Lc Allan, [address], [address]. tel:[phone] Family History Family Member Type Diagnosis Age At Onset No Information Payers Payer name Insurance type Covered republican ID Authoriza tion(s) [facility] CI [id number] Social History Type Description Quantity Date Captured Comments Alcohol Use Details Unknown Caffeine Use Details Unknown Tobacco Use Status No Information Smoking Status No Information Sex Female Chief Complaint And Reason For Visit No Information Reason For Referral Reason For Referral No Information History Of Present Illness Encounter Date Complaint History Of Prese nt Illness No Information Functional Status Date Functional Assessmen t No Information Instructions Date Instruction Additional Infor mation No Information Assessments Type Assessment Date No Information Patient Care Teams Name Effective Dates (start - stop) Status Members No Information
--- OUTSIDE RECORDS SUMMARY | 2017-01-16 04:00 | XMS_ITS | Continuity of Care Document ---
Author Organization [id number] - [employer] [facility] Address [address] [place] [address] Phone Care Team Providers Care Pet House Sitter Name Role Phone Lc Joshi MD Unavailable [...] OFFICE/OUTPT EM EST PROB FOCUS/STRFWD 10 MINS [id number] - [facility], [address], [place], [address], [place] tel:[phone] PMS Bariatric Morbid obesity 201 7 Madelyn Platt. [address], [address], [id number]. tel:[phone] Referring Provider: Shane Mcgregor, [address], [place], [address]. tel:[phone] OFFICE/OUTPT EM EST PROB FOCUS/STRFWD 10 MINS [id number] - [facility] Center[facility] Floor Runner [employer]elly[employer], [address], [address], tel:[phone] PMS My New Self Bariatric No Information 7 Madelyn Platt. [address], [address], [id number]. tel:[phone] Referring Provider: Lc Allan, [facility] [address], [address]. tel:[phone] [id number] - [place] Floor Runner [employer], [address], [address], tel:[phone] PMS My New Self Bariatric No Information Aug-0 7 Madelyn Platt. [address], [address], [id number]. tel:[phone] Referring Provider: Shane Mcgregor, [address], [place], [address]. tel:[phone] [id number] - [facility] Floor Runner [employer], [address], [address], tel:[phone] PMS My New Self Bariatric No Information Jul- 7 Madelyn Platt. [address], [address], [id number]. tel:[phone] Referring Provider: [address], [place], [address]. tel:[phone] [id number] - [facility] Floor Runner [employer], [address], [address], tel:[phone] PMS My New Self Bariatric No Information Madelyn Platt. [address], [address], [id number]. tel:[phone] Referring Provider: Shane Mcgregor, [address], [place], [address]. tel:[phone] OFFICE/OUTPT EM EST PROB FOCUS/STRFWD 10 MINS [id number] - [facility]ogenCAN[facility], [address], [address], tel:[phone] PMS My New Self Bariatric No Information Madelyn Platt. [address], [address], [id number]. tel:[phone] Referring Provider: Shane Mcgregor, [address], [place], [address]. tel:[phone] OFFICE/OUTPT EM NEW COMPREH/MODER ATE 45 MINS [id number] - [place] Floor Runner [facility]CAN[facility], [address] [address], [place], [address], tel:[phone] PMS My New Self Bariatric No Information Madelyn Platt. [address], [address], [id number]. tel:[phone] Referring Provider: Lc Allan, [address], [address]. tel:[phone] Family History Family Member Type Diagnosis Age At Onset No Information Payers Payer name Insurance type Covered republican ID Authoriza tion(s) [facility] CI [id number] Social History Type Description Quantity Date Captured [...]
--- OUTSIDE RECORDS SUMMARY | 2017-01-16 04:00 | XMS_ITS | Continuity of Care Document ---
Author Organization [id number] - [employer] [facility] Address [address] [place] [address] Phone Care Team Providers Care Used Car Sales Supervisor Name Role Phone Lc Joshi MD Unavailable [...] OFFICE/OUTPT EM EST PROB FOCUS/STRFWD 10 MINS [id number] - [facility] [employer] [facility] Winding Operator [facility], [address], [place], [address], [place] tel:[phone] PMS Bariatric Morbid obesity 201 7 Madelyn Platt. [address], [address], [id number]. tel:[phone] Referring Provider: Shane Mcgregor, [address], [place], [address]. tel:[phone] OFFICE/OUTPT EM EST PROB FOCUS/STRFWD 10 MINS [id number] - [facility] [employer] Container Winding Operator sJumblets, [address], [address], tel:[phone] PMS My New Self Bariatric No Information 7 Mad[address] Platt. [address], [address], [id number]. tel:[phone] Referring Provider: Lc Allan, [facility] [address], [address]. tel:[phone] [id number] - [place] [employer] Container Winding Operator s[employer]umblets, [address], [address], tel:[phone] PMS My New Self Bariatric No Information Aug-0 7 Madelyn Platt. [address], [address], [id number]. tel:[phone] Referring Provider: Shane Mcgregor, [address], [place], [address]. tel:[phone] [id number] - [facility] [employer] Container Winding Operator [employer], [address], [address], tel:[phone] PMS My New Self Bariatric No Information Jul- 7 Madelyn Platt. [address], [address], [id number]. tel:[phone] Referring Provider: [address], [place], [address]. tel:[phone] [id number] - [facility] [employer] Container Winding Operator [employer], [address], [address], tel:[phone] PMS My New Self Bariatric No Information Madelyn Platt. [address], [address], [id number]. tel:[phone] Referring Provider: Shane Mcgregor, [address], [place], [address]. tel:[phone] OFFICE/OUTPT EM EST PROB FOCUS/STRFWD 10 MINS [id number] - [facility] OhioFiberglass Container Winding Operator sClipsourceFAIRVIEW [facility], [address], [address], tel:[phone] PMS My New Self Bariatric No Information Madelyn Platt. [address], [address], [id number]. tel:[phone] Referring Provider: Shane Mcgregor, [address], [place], [address]. tel:[phone] OFFICE/OUTPT EM NEW COMPREH/MODER ATE 45 MINS [id number] - [place] [employer] Container Winding Operator sClipsourceFAIRVIEW RANGE [facility], [address] [address], [place], [address], tel:[phone] PMS My New Self Bariatric No Information Madelyn Platt. [address], [address], [id number]. tel:[phone] Referring Provider: Lc Allan, [address], [address]. tel:[phone] Family History Family Member Type Diagnosis Age At Onset No Information Payers Payer name Insurance type Covered democrat ID Authoriza tion(s) [facility] CI [id number] Social History Type Description Quantity Date Captured [...]
--- OUTSIDE RECORDS SUMMARY | 2017-01-16 04:00 | XMS_ITS | Continuity of Care Document ---
Author Organization [id number] - [facility] Address [address] [place] [address] Phone Care Team Providers Care Manager Analytical Name Role Phone Lc Joshi MD Unavailable [...] OFFICE/OUTPT EM EST PROB FOCUS/STRFWD 10 MINS [id number] - [facility] Staff[facility] Specialist [facility], [address], [place], [address], [place] tel:[phone] PMS Bariatric Morbid obesity 201 7 Madelyn Platt. [address], [address], [id number]. tel:[phone] Referring Provider: Shane Mcgregor, [address], [place], [address]. tel:[phone] OFFICE/OUTPT EM EST PROB FOCUS/STRFWD 10 MINS [id number] - [facility] HospitalSurvata Staffing Specialist sRocketboom, [address], [address], tel:[phone] PMS My New Self Bariatric No Information 7 Mad[address] Platt. [address], [address], [id number]. tel:[phone] Referring Provider: Lc Allan, [facility] [address], [address]. tel:[phone] [id number] - [place] Staffing Specialist [employer], [address], [address], tel:[phone] PMS My New Self Bariatric No Information Aug-0 7 Madelyn Platt. [address], [address], [id number]. tel:[phone] Referring Provider: Shane Mcgregor, [address], [place], [address]. tel:[phone] [id number] - [facility] HospitalSurvata Staffing Specialist sR[employer], [address], [address], tel:[phone] PMS My New Self Bariatric No Information Jul- 7 Madelyn Platt. [address], [address], [id number]. tel:[phone] Referring Provider: [address], [place], [address]. tel:[phone] [id number] - [facility] HospitalSur[facility]ata Staffing Specialist sR[employer], [address], [address], tel:[phone] PMS My New Self Bariatric No Information Madelyn Platt. [address], [address], [id number]. tel:[phone] Referring Provider: Shane Mcgregor, [address], [place], [address]. tel:[phone] OFFICE/OUTPT EM EST PROB FOCUS/STRFWD 10 MINS [id number] - [facility] CampusStaff[facility] Specialist sV [facility]PH[facility], [address], [address], tel:[phone] PMS My New Self Bariatric No Information Madelyn Platt. [address], [address], [id number]. tel:[phone] Referring Provider: Shane Mcgregor, [address], [place], [address]. tel:[phone] OFFICE/OUTPT EM NEW COMPREH/MODER ATE 45 MINS [id number] - [place] Staffing Specialist s[facility]PH[facility], [address] [address], [place], [address], tel:[phone] PMS My New Self Bariatric No Information Madelyn Platt. [address], [address], [id number]. tel:[phone] Referring Provider: Lc Allan, [address], [address]. tel:[phone] Family History Family Member Type Diagnosis Age At Onset No Information Payers Payer name Insurance type Covered constitution party ID Authoriza tion(s) [facility] CI [id number] Social History Type Description Quantity Date Captured [...]
--- OUTSIDE RECORDS SUMMARY | 2017-07-17 04:00 | XMS_ITS | Continuity of Care Document ---
Author Organization [facility] icians [facility] Address [address] [place] [address] [place] [address] Phone Care Team Providers Care Printing Screen Assembler Name Role Phone Lc Joshi MD Unavailable Unavailable Allergies, Adverse Reactions, Alerts Substance Reaction Status Criticality No Known allergies Procedures Procedure Date OFFICE/OUTPT EM EST PROB FOCUS/STRFWD 10 MINS Advance Directives Directive Yes / No Effective Date File Name No Information Encounters Encounter Description Practice Location Reason(s) For Visit Diagnoses Date Provider Providers Copied on Encounter OFFICE/OUTPT EM EST PROB FOCUS/STRFWD 10 MINS [facility], [address] [place] [address], [id number], tel:[phone] CARTON FORMING MACHINE TENDER Bariatric Morbid obesityBariatric surgery status 201 8 Madelyn Platt. [address] [place] [address], [address], [id number]. tel:[phone] Referring Provider: Lc Allan, [address] [place] [address], [address] . tel:[phone] Family History Family Member Type Diagnosis Age At Onset No Information Payers Payer name Insurance type Covered alliance party ID Authoriza tiemilia(s) [facility] CI [id number] Social History Type Description Quantity Date Captured [...]
--- OUTSIDE RECORDS SUMMARY | 2017-07-17 04:00 | XMS_ITS | Continuity of Care Document ---
Author Organization [facility] Address [address] [place] [address] [place] [address] Phone Care Team Providers Care Precision Inspector Name Role Phone Lc oJshi MD Unavailable Unavailable Allergies, Adverse Reactions, Alerts Substance Reaction Status Criticality No Known allergies Procedures Procedure Date OFFICE/OUTPT EM EST PROB FOCUS/STRFWD 10 MINS Advance Directives Directive Yes / No Effective Date File Name No Information Encounters Encounter Description Practice Location Reason(s) For Visit Diagnoses Date Provider Providers Copied on Encounter OFFICE/OUTPT EM EST PROB FOCUS/STRFWD 10 MINS [facility], [address] [place] [address], [id number], tel:[phone] BARREL LATHE OPERATOR OUTSIDE Bariatric Morbid obesityBariatric surgery status 201 [address] [place] [address], [address], [id number]. tel:[phone] Referring Provider: Lc Allan, [address] [place] [address], [address] . tel:[phone] Family History Family Member Type Diagnosis Age At Onset No Information Payers Payer name Insurance type Covered libertarian ID Authoriza tiemilia(s) [facility] CI [id number] Social History Type Description Quantity Date Captured [...]
--- OUTSIDE RECORDS SUMMARY | 2017-07-17 04:00 | XMS_ITS | Continuity of Care Document ---
Author Organization [facility] icians [facility] Address [address] [place] [address] [place] [address] Phone Care Team Providers Care Dining Car Waiter/Waitress Name Role Phone Lc Joshi MD Unavailable Unavailable Allergies, Adverse Reactions, Alerts Substance Reaction Status Criticality No Known allergies Procedures Procedure Date OFFICE/OUTPT EM EST PROB FOCUS/STRFWD 10 MINS Advance Directives Directive Yes / No Effective Date File Name No Information Encounters Encounter Description Practice Location Reason(s) For Visit Diagnoses Date Provider Providers Copied on Encounter OFFICE/OUTPT EM EST PROB FOCUS/STRFWD 10 MINS [facility], [address] [place] [address], [id number], tel:[phone] UNIT OPERATOR Bariatric Morbid obesityBariatric surgery status 201 8 Madelyn Platt. [address] [place] [address], [address], [id number]. tel:[phone] Referring Provider: Lc Allan, [address] [place] [address], [address] . tel:[phone] Family History Family Member Type Diagnosis Age At Onset No Information Payers Payer name Insurance type Covered green party ID Authoriza tiemilia(s) [facility] CI [id number] Social History Type Description Quantity Date Captured [...]
--- OUTSIDE RECORDS SUMMARY | 2017-07-17 04:00 | XMS_ITS | Continuity of Care Document ---
Author Organization [facility] icians [facility] Address [address] [place] [address] [place] [address] Phone Care Team Providers Care Telehealth Coordinator Name Role Phone Lc Joshi MD Unavailable Unavailable Allergies, Adverse Reactions, Alerts Substance Reaction Status Criticality No Known allergies Procedures Procedure Date OFFICE/OUTPT EM EST PROB FOCUS/STRFWD 10 MINS Advance Directives Directive Yes / No Effective Date File Name No Information Encounters Encounter Description Practice Location Reason(s) For Visit Diagnoses Date Provider Providers Copied on Encounter OFFICE/OUTPT EM EST PROB FOCUS/STRFWD [address] [facility], [address] [place] [address], [id number], tel:[phone] NUTRITION MANAGER Bariatric Morbid obesityBariatric surgery status 201 8 Madelyn Platt. [address] [place] [address], [address], [id number]. tel:[phone] Referring Provider: Lc Allan, [address] [place] [address], [address] . tel:[phone] Family History Family Member Type Diagnosis Age At Onset No Information Payers Payer name Insurance type Covered democrat ID Authoriza tiemilia(s) [facility] CI [id number] Social History Type Description Quantity Date Captured [...]
--- OUTSIDE RECORDS SUMMARY | 2023-12-27 15:00 | XMS_ITS ---
Author Organization [facility] Address [address] [place] [address] Care Team Providers Care Tavern Operator Name Role Phone Gretta Maldonado Unavailable [phone] Migration, Provider Unavailable Unavailable REASON FOR VISIT [facility] To [facility] Conversion Encounter Medications Medication SIG (Take, Route, Frequency, Duration) Notes Start Date End Date Status Phentermine HCl 30 MG Capsule 1 cap(s) orally once a day (in the morning); Duration: 90 days 11/04/2023 Active Synthroid 137 MCG Tablet 1 tab(s) orally once a day; Duration: 90 days 10/31/2023 Active Phentermine HCl 30 MG Capsule 1 cap(s) orally once a day (in the morning); Duration: 90 days 10/31/2023 Active metFORMIN HCl ER 500 MG Tablet Extended Release 24 Hour 1 tab(s) orally once a day; Duration: 90 days 10/31/2023 Active Spironolactone 50 MG Tablet 2 tablets orally daily; Duration: 90 days 10/31/2023 Active MetFORMIN (Eqv-Glumetza) 500 MG TABLET, EXTENDED RELEASE 1 TAB(S) ORALLY ONCE A DAY; Duration: 90 DAYS *Please review for potential replacement for e-prescription and drug interaction check* *Reorder from [facility] for eRx and Interaction Alerts* 03/31/2023 Not-Taking Spironolactone 50 MG Tablet 2 tabs orally daily; Duration: 90 days 03/31/2023 Not-Taking Phentermine HCl 15 MG Capsule 2 cap(s) orally once a day (in the morning); Duration: 90 days 10/06/2023 Active Synthroid 137 MCG Tablet 1 tab(s) orally once a day; Duration: 90 days Active Sertraline HCl 50 MG Tablet 1 tab(s) orally once a day; Duration: 30 days 03/31/2023 Active Omeprazole 20 MG Capsule Delayed Release 1 cap(s) orally once a day; Duration: 90 days 11/04/2023 Active metFORMIN HCl ER 500 MG Tablet Extended Release 24 Hour 1 tab(s) once a day; Duration: 90 days Active Spironolactone 50 MG Tablet 2 tabs; Duration: 90 days Active Lo Loestrin Fe 1 MG-10 MCG / 10 MCG Tablet ; Duration: 84 Days Active Omeprazole 20 MG Capsule Delayed Release ; Duration: 90 Days Active Encounters Encounter Location Date Provider Diagnosis [address] [phone] 12/27/2023 Provider Migration Polycystic ovarian syndrome E28.2 ; Heartburn R12 ; Obesity, unspecified E66.9 and Hypothyroidism, unspecified E03.9 Assessments Encounter Date Diagnosis (ICD Code) Assessment Notes Treatment Notes Treatment Clinical Notes Section Notes 12/27/2023 Polycystic ovarian syndrome (ICD-10 - E28.2) 12/27/2023 Heartburn (ICD-10 - R12) 12/27/2023 Obesity, unspecified (ICD-10 - E66.9) 12/27/2023 Hypothyroidism, unspecified (ICD-10 - E03.9) Plan Of Treatment Medication Medication Name Sig Start Date Stop Date Notes Phentermine HCl 30 MG Capsule 1 cap(s) o rally once a day (in the morning); Duration: 90 days 11/04/2023 Synthroid 137 MCG Tablet 1 tab(s) orally once a day; Duration: 90 days 10/31/2023 Phentermine HCl 30 MG Capsule 1 cap(s) o rally once a day (in the morning); Duration: 90 days 10/31/2023 metFORMIN HCl ER 500 MG Tabl et Extended Release 24 Hour 1 tab(s) orally once a day; Duration: 90 days 10/31/2023 Spironolactone 50 MG Tablet 2 tablets or ally daily; Duration: 90 days 10/31/2023 Omeprazole 20 MG Capsule Del ayed Release 1 cap(s) orally once a day; Duration: 90 days 11/04/2023 Next Appt Details Provider Name:Gretta Maldonado, 09:00:00 AM, [address] [place] [address], [place], [address], Progress Notes * Michelle SOARESDOB:1990 (34 yo F)Acc No.[id number]:12/27/2023 Patient: Michelle Taylor Provider: Slick Petty :1990 A ge:33 Y S ex:Female Date:12/27/2023 Address:[address] [place] [address] Subjective: * Chief Complaints: * M [facility] To [facility] Conversion Encounter * Medications: T akingOmeprazole 20 MG Capsule Delayed Release Lo Loestrin Fe 1 MG-10 MCG / 10 MCG Tablet Spironolactone 50 MG Tablet 2 tabs metFORMIN HCl ER 500 MG Tablet Extended Release 24 Hour 1 tab(s) once a day Sertraline HCl 50 MG Tablet 1 tab(s) orally once a day Synthroid 137 MCG Tablet 1 tab(s) orally once a day Phentermine HCl 15 MG Capsule 2 cap(s) orally once a day (in the morning) Taking Omeprazole 20 MG Capsule Delayed Release Taking Lo Loestrin Fe 1 MG-10 MCG / 10 MCG Tablet Taking Spironolactone 50 MG Tablet 2 tabs Taking metFORMIN HCl ER 500 MG Tablet Extended Release 24 Hour 1 tab(s) once a day Taking Sertraline HCl 50 MG Tablet 1 tab(s) orally once a day Taking Synthroid 137 MCG Tablet 1 tab(s) orally once a day Taking Phentermine HCl 15 MG Capsule 2 cap(s) orally once a day (in the morning) Not-TakingSpironolactone 50 MG Tablet 2 tabs orally daily MetFORMIN (Eqv- Glumetza) 500 MG TABLET, EXTENDED RELEASE 1 TAB(S) ORALLY ONCE A DAY , Notes to Pharmacist: *Please review for potential replacement for e-prescription and drug interaction check* *Reorder from [facility] for eRx and Interaction Alerts*Not-Taking Spironolactone 50 MG Tablet 2 tabs orally daily Not-Taking MetFORMIN (Eqv- Glumetza) 500 MG TABLET, EXTENDED RELEASE 1 TAB(S) ORALLY ONCE A DAY , Notes to Pharmacist: *Please review for potential replacement for e-prescription and drug interaction check* *Reorder from [facility] for eRx and Interaction Alerts* Assessment: * Assessment: 1. P olycystic ovarian syndrome - E28.2 (Primary) 2 . H eartburn - R12 3 . O besity, unspecified - E66.9 4 . H ypothyroidism, unspecified - E03.9 Plan: * Treatment: 2. H eartburn Start Omeprazole Capsule Delayed Release, 20 MG, 1 cap(s), orally, once a day, 90 days, 90 Capsule, Refills 1. 3. O besity, unspecified Start Phentermine HCl Capsule, 30 MG, 1 cap(s), orally, once a day (in the morning), 90 days, 90, Refills 1; S tart Phentermine HCl Capsule, 30 MG, 1 cap(s), orally, once a day (in the morning), 90 days, 90, Refills 1. 4. H ypothyroidism, unspecified Start Synthroid Tablet, 137 MCG, 1 tab(s), orally, once a day, 90 days, 90 Tablet, Refills 1. ? * Electronic signature of Prov ider Migration on 12/26/2024 at 05:43 PM INTERLOCKER Sign off status: Pending * Provider: Slick lemus Migration Date: 02/25/2023 Generated for Devin jack/Kim/Pinaitting on: 02/26/2024 05:43 PM INTERLOCKER
--- OUTSIDE RECORDS SUMMARY | 2024-08-26 03:40 | XMS_ITS ---
Author Organization [facility] Address [address] [place], [place] [address] Care Team Providers Care Apparel Cutter Name Role Cirilo Gretta Maldonado Unavailable [phone] REASON FOR VISIT f/u Encounters Encounter Location Date Provider Diagnosis [facility] [address] Mal[place]ado [address] [place] [address] 08/26/2024 Gretta Maldonado Plan Of Treatment Next Appt Details Provider Name:Gretta Maldonado, 09:00:00 AM, [address] [place] [address], [id number], Progress Notes * Michelle SOARESDOB:1990 (34 yo F)Acc No.[id number]:08/26/2024 Progress Notes Patient: Michelle Taylor Provider: Freddy Maldonado MD :1990 A ge:33 Y S ex:Female Date:08/26/2024 Address:[address] [place], [place] [id number] Subjective: * Chief Complaints: * F /u * Electronic signature of Hiram Maldonado MD on 12/26/2024 at 05:42 PM [employer] ENGINEER SERGEANT Sign off status: Pending * Provider: Freddy Maldonado MD Date: 0 08/26/2024 Generated for Printi ng/Faxing/eTransmitting on: 1 02/26/2024 05:42 PM [employer] ENGINE[employer] SERGEANT
--- NOTE | ~2024-12-26 | CT_ITS ---
Michelle Hannah Cavazos EXAMINATION: CT abdomen pelvis w con COMPARISON: None HISTORY: abd pain TECHNIQUE: Axial images were obtained through the abdomen, pelvis post administration of IV contrast. Oral contrast was also administered. Coronal reconstruction images were obtained from the axial views. CT scan performed using dose optimization techniques including the following automated exposure control; adjustment of mA and/or kV; use of iterative reconstruction technique. Automatic exposure control was used to reduce radiation dose. Permanent radiation dose record is archived to PACS. FINDINGS: CT abdomen: LUNG BASES: The lung bases are clear. The visualized portions of the heart and pericardium are unremarkable. LIVER: Minimal hepatic steatosis. Portal vein is patent. There is no intrahepatic biliary duct dilatation. SPLEEN: Unremarkable. KIDNEYS: Right Kidney: Unremarkable. No calculi. No hydronephrosis. Left Kidney: Unremarkable. No calculi. No hydronephrosis ADRENAL GLANDS: Unremarkable. PANCREAS: Unremarkable. GALLBLADDER/BILIARY: Cholelithiasis. STOMACH AND ESOPHAGUS: Large hiatal hernia with postsurgical changes noted in the distal esophagus and stomach. There is hyperemia of the stomach which may relate to underlying gastritis. BOWEL/MESENTERY: There are multiple fluid-filled loops of large bowel with multiple fluid-filled loops of small bowel also noted. There is no perforation or abscess. The appendix is not identified however there is no inflammation surrounding the cecum. No stranding within the mesentery. No dilated small bowel loops identified. ADENOPATHY/RETROPERITONEUM: No lymphadenopathy. AORTA/VASCULATURE: Normal caliber aorta. FREE FLUID OR FREE AIR: No free fluid.. CT pelvis: SOLID ORGANS/REPRODUCTIVE: Uterus is atrophic, there is no adnexal mass. BLADDER: Within normal limits. OSSEOUS STRUCTURES: No acute osseous abnormality.No suspicious lesions. OVERLYING SOFT TISSUES: Unremarkable. IMPRESSION: 1. Gastritis with probable mild enterocolitis. No perforation or abscess. Reviewed, dictated and finalized at location P. GRAPH OFFICE MANAGER
[2024-12-26 16:44] VITALS: BP 113/83; PULSE 136; RESP 18; O2SAT 100
[2024-12-26 17:01] LABS: Hematocrit 47.1 % (37.0-47.0); Hemoglobin 15.4 g/dL (12.0-15.0); Immature Granulocyte Percent A 0.7 % (0-0.5); Lymphocytes Absolute Auto 3.03 K/mm3 (0.9-3.2); Mean Corpuscular HGB Conc 32.7 g/dl (32-36); Mean Corpuscular Hemoglobin 31.4 pg (26-34); Mean Corpuscular Volume 96.1 fl (80-100); Nucleated Red Blood Cells Absolute Auto 0.000 K/mm3 (0.0-0.012); Nucleated Red Blood Cells Perc 0.0 % (0.0-0.2); Platelet Count Result 452 k/mm3 (150-375); Red Blood Count 4.90 M/mm3 (4.2-5.4); White Blood Count 33.6 K/mm3 (4.5-10.0)
[2024-12-26] MEDS: METOCLOPRAMIDE HCL INJ 10 MG/2 ML VIAL IV PUSH (17:02)
[2024-12-26 17:17] LABS: Alanine Aminotransferase 12 U/L (6-35); Albumin Level 5.0 g/dL (3.5-5.1); Alkaline Phosphatase 91 U/L (38-126); Anion Gap 13 mmol/L (4-12); Aspartate Amino Transferase 26 U/L (14-36); Bilirubin,Total 0.7 mg/dL (0.2-1.3); Blood Urea Nitrogen 11 mg/dL (7-17); Calcium 10.5 mg/dL (8.4-10.2); Carbon Dioxide 23 mmol/L (22-30); Chloride 101 mmol/L (98-107); Estimated CRCL calculation 84 ml/min; Estimated Glomerular Filt Rate > 60; Glucose 128 mg/dL (65-110); Lipase 1233 U/L (23-300); Potassium 3.9 mmol/L (3.4-5.0); Sodium 137 mmol/L (137-145); Total Protein 9.0 g/dL (6.3-8.2)
--- OUTSIDE RECORDS SUMMARY | 2024-12-26 17:42 | XMS_ITS | Data Portability ---
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 Plan of Treatment Reminders Order Date Submit Date Provider Last Modified By Organization Details Last Modified Time Details Appointments None recorded. Lab vitamin B12 + folate, serum or blood 2022 023 [employer] [facility], [address], [place], [address], 3 16:35:40 vitamin D, 25-hydroxy, total, serum 2022 023 [employer], [address], [place], [address], 3 16:35:41 dhea-sulfat e, serum 2022 023 [employer], [address], [place], [address], 3 16:35:38 insulin, serum 2022 023 [employer] [facility], [address], [place], [address], 3 16:35:39 testosteron e, free + total, serum 2022 023 [employer] [facility], [address], [place], [address], 3 16:35:43 T3, free, serum or plasma 2022 023 [employer] [facility], [address], [place], [address], 3 16:35:40 TSH + free T4, serum 2022 023 [employer] [facility], [address], [place], [address], 3 16:35:42 CMP, serum or plasma 2022 023 [employer] [facility], [address], [place], [address], 3 16:35:37 Referral None recorded. Procedures None recorded. Surgeries None recorded. Imaging US, thyroid 2022 023 [facility], [address], [place], [address], 3 17:34:32 Medication Orders cyanocobala min (vit B-12) 1,000 mcg/mL injection solution 2022 023 [facility] #[id number], [address] [place] [address], [id number], 3 16:37:19 metformin ER 500 mg tablet,exte nded release 24 hr 2022 023 [facility] #58911, [address] [place] [address], [id number], 3 16:36:10 spironolact one 50 mg tablet 2022 023 [facility] [employer] [facility] #42421, [address] [place] [address], [id number], 3 16:36:11 Lo Loestrin Fe 1 mg-10 mcg (24)/10 mcg (2) tablet 2022 023 [facility] #33093, [address] [place] [address], [id number], 3 16:37:18 Synthroid 137 mcg tablet 2022 023 [facility], [address] [facility], [place], [place], [id number], 3 16:35:40 Patient TargetsNo targets recorded. Patient [...] Third trime ster 0.43- 2.91 Not Available [employer] [facility] [address] [place], [address], 03/20/2021 14:04:04 03/17/19 22 03/20/2021 TSH+F REE T4 T4, free 1.1 NG/dL 0.8-1. 8 normal Not Available [employer] [facility] [address] [place], [address], 03/20/2021 14:04:04 03/17/19 22 03/20/2021 VITAM IN [...] /MS is recom pola d: order code 36482 (sayra ents >2yrs ). See Note 1 Note 1 For addit ional gilbertr christina brandt refer to http: //[facility] Tobiasia gnost [employer].c om/fa q/FAQ 199 (This link is being provi ded for infor kelsy castro/ cecil marx purpo ses only. ) Not Available [address], [address], 03/20/2021 14:04:04 03/17/19 22 03/20/2021 T3, FREE T3, free 3.0 pg/mL 2.3-4. 2 normal Not Available [address], [address], 03/20/2021 14:04:03 03/17/19 22 03/20/2021 VITAM IN B12/F OLATE , SERUM PANEL vitamin B12 444 pg/mL 200-11 00 normal Not Available [address], [address], 03/20/2021 14:04:02 03/17/19 22 03/20/2021 VITAM IN B12/F OLATE , SERUM PANEL folate, serum 11.5 NG/mL normal Refer ence Range Low: <3.4 Borde rline : 3.4-5 .4 Brit l: >5.4 Not Available [address], [address], 03/20/2021 14:04:02 03/17/19 22 03/20/2021 CORTI ZEV, A.M. cortisol, A.M. 22.0 mcg/d L normal Refer ence Range 8 a.m. (7-9 a.m.) Speci men: 4.0-2 2.0 Not Available [employer] [facility] [address] [place], [address], 03/20/2021 14:04:01 03/17/19 22 03/20/2021 ESTRA DIOL [...] is recom pola d (orde r code 51243 ). Pleas e note: patie nts being [...] s. [facility] order code 36718 -Estr adiol , Ultra sensi tive LC/MS /MS demon strat es negli gible cross react ivity with fulve stran t. Not Available [employer] [facility] [address] [place], [address], 03/20/2021 14:04:00 03/17/19 22 03/20/2021 PROLA CTIN prolactin 8.1 NG/mL normal Refer ence Range Femal es Non-p regna nt 3.0-3 0.0 Pregn ant 10.0- 209.0 Postm enopa usal 2.0-2 0.0 Not Available [facility] [address] [place], [address], 03/20/2021 14:03:59 03/17/19 22 03/20/2021 PROGE STERO NE progesterone 0.6 NG/mL normal Refer ence Range s Femal e Folli cular Phase < 1.0 Lutea l Phase 2.6-2 1.5 Post menop ausal < 0.5 Pregn austin 1st Trime ster 4.1-3 4.0 2nd Trime ster 24.0- 76.0 3rd Trime ster 52.0- 302.0 Not Available [facility] [address] [place], [address], 03/20/2021 14:03:59 03/17/19 22 03/20/2021 LH LH 20.3 mIU/m L normal Refer ence Range Folli cular Phase 1.9-1 2.5 Mid-C ycle Peak 8.7-7 6.3 Lutea l Phase 0.5-1 6.9 Postm enopa usal 10.0- 54.7 Not Available [employer] [facility] [address] [place], [address], 03/20/2021 14:03:58 03/17/19 22 03/20/2021 INSUL IN [...] (dete ryan, gluli sine) . Not Available [employer] [facility] [address] [place], [address], 03/20/2021 14:03:57 03/17/19 22 03/20/2021 FSH FSH 7.0 mIU/m L normal Refer ence Range Folli cular Phase 2.5-1 0.2 Mid-c ycle Peak 3.1-1 7.7 Lutea l Phase 1.5- 9.1 Postm enopa usal 23.0- 116.3 Not Available [address], [address], 03/20/2021 14:03:56 03/17/19 22 03/20/2021 DHEA SULFA TE DHEA sulfate 240 mcg/d L 23-266 normal Not Available [address], [address], 03/20/2021 14:03:56 03/17/19 22 03/20/2021 THYRO ID PEROX IDASE ANTIB ODIES thyroid peroxidase antibodies 95 IU/mL <9 high Not Available [address], [address], 03/20/2021 14:03:55 03/17/19 22 03/20/2021 CYCLI C CITRU LLINA QUEENIE PEPTI DE (CCP) AB (IGG) cyclic citrullinate d peptide (ccp) Ab (IgG) <16 units normal Refer ence Range Negat nikunj: <20 Weak Posit nikunj: 20-39 Moder ate Posit nikunj: 40-59 Stron g Posit nikunj: >59 Not Available [address], [address], 03/20/2021 14:03:54 03/17/19 22 03/20/2021 C-ALINA CTIVE PROTE IN C-reactive protein 5.0 mg/L <8.0 normal Not Available [address], [address], 03/20/2021 14:03:53 03/17/19 22 03/20/2021 RHEUM ATOID FACTO R rheumatoid factor <14 IU/mL <14 normal Not Available [address], [place], [address], 03/20/2021 14:03:53 03/17/19 22 03/20/2021 ANTIN UCLEA R ANTIB ODIES TITER AND PATTE RN CAR titer 1:320 titer high Refer ence Range <1:40 Negat nikunj 1:40- 1:80 Low Antib boby Level >1:80 Glade queenie Antib boby Level Not Available [address], [place], [address], 03/20/2021 14:03:52 03/17/19 22 03/20/2021 ANTIN UCLEA [...] g/10. 1515/ ccl- 2017- 0052) Not Available [address], [place], [address], 03/20/2021 14:03:52 03/17/19 22 03/20/2021 CAR SCREE [...] cecil aguilerao ses only. ) Not Available [address], [address], 03/20/2021 14:03:51 03/17/19 22 03/20/2021 CBC (H/H, RBC, INDIC ES, WBC, PLT) white blood cell count 6.2 thous and/u L 3.8-10 .8 normal Not Available [facility] [address], [address], 03/20/2021 14:03:51 03/17/19 22 03/20/2021 CBC (H/H, RBC, INDIC ES, WBC, PLT) red blood cell count 4.38 david on/uL 3.80-5 .10 normal Not Available [address], [address], 03/20/2021 14:03:51 03/17/19 22 03/20/2021 CBC (H/H, RBC, INDIC ES, WBC, PLT) hemoglobin 12.8 g/dL 11.7-1 5.5 normal Not Available [address], [address], 03/20/2021 14:03:51 03/17/19 22 03/20/2021 CBC (H/H, RBC, INDIC ES, WBC, PLT) hematocrit 39.9 % 35.0-4 5.0 normal Not Available [address], [address], 03/20/2021 14:03:51 03/17/19 22 03/20/2021 CBC (H/H, RBC, INDIC ES, WBC, PLT) MCV 91.1 fL 80.0-1 00.0 normal Not Available [employer] [address], [address], 03/20/2021 14:03:51 03/17/19 22 03/20/2021 CBC (H/H, RBC, INDIC ES, WBC, PLT) MCH 29.2 pg 27.0-3 3.0 normal Not Available [address], [address], 03/20/2021 14:03:51 03/17/19 22 03/20/2021 CBC (H/H, RBC, INDIC ES, WBC, PLT) MCHC 32.1 g/dL 32.0-3 6.0 normal Not Available [address], [address], 03/20/2021 14:03:51 03/17/19 22 03/20/2021 CBC (H/H, RBC, INDIC ES, WBC, PLT) RDW 12.5 % 11.0-1 5.0 normal Not Available [address], [address], 03/20/2021 14:03:51 03/17/19 22 03/20/2021 CBC (H/H, RBC, INDIC ES, WBC, PLT) platelet count 287 thous and/u L 140-40 0 normal Not Available [address], [address], 03/20/2021 14:03:51 03/17/19 22 03/20/2021 CBC (H/H, RBC, INDIC ES, WBC, PLT) MPV 11.5 fL 7.5-12 .5 normal Not Available [address], [address], 03/20/2021 14:03:51 03/17/19 22 03/20/2021 SED RATE BY MODIF IED CASIMIRO GILMOREREN sed rate by modified west[place]ictoriaren 6 mm/h < or = 20 normal Not Available [address], [address], 03/20/2021 14:03:49 03/17/19 22 03/20/2021 COMPR EHENS NIKUNJ METAB OLIC PANEL glucose 88 mg/dL 65-99 normal Fasti ng refer ence inter dipika Not Available [address], [address], 03/20/2021 14:03:49 03/17/19 22 03/20/2021 COMPR EHENS NIKUNJ METAB OLIC PANEL urea nitrogen (BUN) 11 mg/dL 7-25 normal Not Available [address], [address], 03/20/2021 14:03:49 03/17/19 22 03/20/2021 COMPR EHENS NIKUNJ METAB OLIC PANEL creatinine 0.70 mg/dL 0.50-1 .10 normal Not Available [address], [address], 03/20/2021 14:03:49 03/17/19 22 03/20/2021 COMPR EHENS NIKUNJ METAB OLIC PANEL eGFR non-afr. emirati 115 mL/mi n/1.7 3m2 > or = 60 normal Not Available [address], [address], 03/20/2021 14:03:49 03/17/19 22 03/20/2021 COMPR EHENS NIKUNJ METAB OLIC PANEL eGFR 134 mL/mi n/1.7 3m2 > or = 60 normal Not Available [address], [address], 03/20/2021 14:03:49 03/17/19 22 03/20/2021 COMPR EHENS NIKUNJ METAB OLIC PANEL BUN/creatini ne ratio not applic able (calc ) 6-22 Not Available [address], [address], 03/20/2021 14:03:49 03/17/19 22 03/20/2021 COMPR EHENS NIKUNJ METAB OLIC PANEL sodium 140 mmol/ L 135-14 6 normal Not Available [address], [address], 03/20/2021 14:03:49 03/17/19 22 03/20/2021 COMPR EHENS NIKUNJ METAB OLIC PANEL potassium 4.2 mmol/ L 3.5-5. 3 normal Not Available [address], [address], 03/20/2021 14:03:49 03/17/19 22 03/20/2021 COMPR EHENS NIKUNJ METAB OLIC PANEL chloride 105 mmol/ L 98-110 normal Not Available [address], [address], 03/20/2021 14:03:49 03/17/19 22 03/20/2021 COMPR EHENS NIKUNJ METAB OLIC PANEL carbon dioxide 26 mmol/ L 20-32 normal Not Available [address], [address], 03/20/2021 14:03:49 03/17/19 22 03/20/2021 COMPR EHENS NIKUNJ METAB OLIC PANEL calcium 9.2 mg/dL 8.6-10 .2 normal Not Available [address], [address], 03/20/2021 14:03:49 03/17/19 22 03/20/2021 COMPR EHENS NIKUNJ METAB OLIC PANEL protein, total 7.1 g/dL 6.1-8. 1 normal Not Available [address], [address], 03/20/2021 14:03:49 03/17/19 22 03/20/2021 COMPR EHENS NIKUNJ METAB OLIC PANEL albumin 4.5 g/dL 3.6-5. 1 normal Not Available [address], [address], 03/20/2021 14:03:49 03/17/19 22 03/20/2021 COMPR EHENS NIKUNJ METAB OLIC PANEL globulin 2.6 g/dL_ (calc ) 1.9-3. 7 normal Not Available [address], [address], 03/20/2021 14:03:49 03/17/19 22 03/20/2021 COMPR EHENS NIKUNJ METAB OLIC PANEL albumin/glob ulin ratio 1.7 (calc ) 1.0-2. 5 normal Not Available [address], [address], 03/20/2021 14:03:49 03/17/19 22 03/20/2021 COMPR EHENS NIKUNJ METAB OLIC PANEL bilirubin, total 0.4 mg/dL 0.2-1. 2 normal Not Available [address], [address], 03/20/2021 14:03:49 03/17/19 22 03/20/2021 COMPR EHENS NIKUNJ METAB OLIC PANEL alkaline phosphatase 69 U/L 31-125 normal Not Available [address], [address], 03/20/2021 14:03:49 03/17/19 22 03/20/2021 COMPR EHENS NIKUNJ METAB OLIC PANEL AST 21 U/L 10-30 normal Not Available [address], [address], 03/20/2021 14:03:49 03/17/19 22 03/20/2021 COMPR EHENS NIKUNJ METAB OLIC PANEL ALT 19 U/L 6-29 normal Not Available [address], [address], 03/20/2021 14:03:49 03/17/19 22 03/20/2021 TESTO STERO NE, FREE, BIOAV AILAB LE AND TOTAL , MS albumin 4.6 g/dL 3.6-5. 1 Not Available [address], [address], 03/20/2021 14:03:48 03/17/19 22 03/20/2021 TESTO STERO NE, FREE, BIOAV AILAB LE AND TOTAL , MS sex hormone binding globulin 55.6 nmol/ L 17-124 Not Available [address], [address], 03/20/2021 14:03:48 03/17/19 22 03/20/2021 TESTO STERO NE, FREE, BIOAV AILAB LE AND TOTAL , MS testosterone , free 5.1 pg/mL 0.2-5. 0 high Not Available [address], [address], 03/20/2021 14:03:48 03/17/19 22 03/20/2021 TESTO STERO NE, FREE, BIOAV AILAB LE AND TOTAL , MS testosterone ,bioavailabl e 10.7 NG/dL 0.5-8. 5 high Not Available [address], [address], 03/20/2021 14:03:48 03/17/19 22 03/20/2021 TESTO STERO NE, FREE, BIOAV AILAB LE AND TOTAL , MS testosterone , total, MS 67 NG/dL 2-45 high For addit ional infor christina brandt e refer to https ://ed ucati on.qu estdi [employer]. com/f aq/FA Q165 (This link is being provi ded for infor kelsy nal/e ducat ional purpo ses only. ) (Note ) This test was devel oped and its malik tical perfo rmanc e jarrett cteri stics have been deter mined by [employer]. It has not been clear ed or appro mary by the FDA. This assay has been valid ated pursu ant to the CLIA regul ation s and is used for clini florentino purpo ses. F med fusio n [address] [facility] [address] [place] [address] [phone] Jose todd MD Not Available [employer] [facility] [address] [address] [place], [address], 03/20/2021 14:03:48 03/17/19 22 03/20/2021 IRON, TIBC AND TANIA TIN PANEL iron, total 48 mcg/d L 40-190 normal Not Available [facility] [address], [address], 03/20/2021 14:03:48 03/17/19 22 03/20/2021 IRON, TIBC AND TANIA TIN PANEL iron binding capacity 352 mcg/d L_(ca lc) 250-45 0 normal Not Available [facility] [address] [place], [address], 03/20/2021 14:03:48 03/17/19 22 03/20/2021 IRON, TIBC AND TANIA TIN PANEL % saturation 14 %_(ca lc) 16-45 low Not Available [facility] [address] [place], [address], 03/20/2021 14:03:48 03/17/19 22 03/20/2021 IRON, TIBC AND TANIA TIN PANEL ferritin 8 NG/mL 16-154 low Not Available [facility] [address], [address], 03/20/2021 14:03:48 03/24/19 22 03/25/2021 CORTI ZEV, A.M. cortisol, A.M. 0.5 mcg/d L low Refer ence Range 8 a.m. (7-9 a.m.) Speci men: 4.0-2 2.0 Not Available [employer] [address], [address], 03/25/2021 10:26:37 06/10/19 22 06/11/2021 TSH+F REE T4 TSH 6.47 mIU/L high Refer ence Range > or = 20 Years 0.40- 4.50 Pregn austin Range s First trime ster 0.26- 2.66 Secon d trime ster 0.55- 2.73 Third trime ster 0.43- 2.91 Not Available [facility] [address] [address] [place], [address], 06/11/2021 19:52:01 06/10/19 22 06/11/2021 TSH+F REE T4 T4, free 1.2 NG/dL 0.8-1. 8 normal Not Available [facility] [address] [address] [place], [address], 06/11/2021 19:52:01 06/10/19 22 06/11/2021 VITAM IN [...] /MS is recom pola d: order code 56638 (sayra ents >2yrs ). See Note 1 Note 1 For addit ional infor christina brandt refer to http: //althea Das gnjames ics.c om/fa q/FAQ 199 (This link is being provi ded for infor kelsy castro/ cecil marx purpo ses only. ) Not Available [employer] [facility] [address] [address] [place], [address], 06/11/2021 19:52:00 06/10/19 22 06/11/2021 T3, FREE T3, free 2.9 pg/mL 2.3-4. 2 normal Not Available [employer] [address], [address], 06/11/2021 19:52:00 06/10/19 22 06/11/2021 VITAM IN B12/F OLATE , SERUM PANEL vitamin B12 1207 pg/mL 200-11 00 high Not Available [facility] [address], [address], 06/11/2021 19:51:59 06/10/1906/11/2021 VITAM IN B12/F OLATE , SERUM PANEL folate, serum 16.0 NG/mL normal Refer ence Range Low: <3.4 Borde rline : 3.4-5 .4 Brit l: >5.4 Not Available [facility] [address], [address], 06/11/2021 19:51:59 06/10/19 22 06/11/2021 INSUL IN [...] (dete ryan, gluli sine) . Not Available [facility] [facility] [address] [place] [address], [address], 06/11/2021 19:51:59 06/10/19 22 06/11/2021 DHEA SULFA TE DHEA sulfate 211 mcg/d L 19-237 normal Not Available [facility] [address] [address], [place], [address], 06/11/2021 19:51:58 06/10/19 22 06/11/2021 THYRO ID PEROX IDASE ANTIB ODIES thyroid peroxidase antibodies 788 IU/mL <9 high Not Available [address], [address], 06/11/2021 19:51:58 06/10/19 22 06/11/2021 COMPR EHENS NIKUNJ METAB OLIC PANEL glucose 79 mg/dL 65-99 normal Fasti ng refer ence inter dipika Not Available [address], [address], 06/11/2021 19:51:57 06/10/19 22 06/11/2021 COMPR EHENS NIKUNJ METAB OLIC PANEL urea nitrogen (BUN) 9 mg/dL 7-25 normal Not Available [address], [address], 06/11/2021 19:51:57 06/10/19 22 06/11/2021 COMPR EHENS NIKUNJ METAB OLIC PANEL creatinine 0.65 mg/dL 0.50-1 .10 normal Not Available [address], [address], 06/11/2021 19:51:57 06/10/19 22 06/11/2021 COMPR EHENS NIKUNJ METAB OLIC PANEL eGFR non-afr. emirati 118 mL/mi n/1.7 3m2 > or = 60 normal Not Available [address], [address], 06/11/2021 19:51:57 06/10/19 22 06/11/2021 COMPR EHENS NIKUNJ METAB OLIC PANEL eGFR 137 mL/mi n/1.7 3m2 > or = 60 normal Not Available [address], [address], 06/11/2021 19:51:57 06/10/19 22 06/11/2021 COMPR EHENS NIKUNJ METAB OLIC PANEL BUN/creatini ne ratio not applic able (calc ) 6-22 Not Available [address], [address], 06/11/2021 19:51:57 06/10/19 22 06/11/2021 COMPR EHENS NIKUNJ METAB OLIC PANEL sodium 141 mmol/ L 135-14 6 normal Not Available [address], [address], 06/11/2021 19:51:57 06/10/19 22 06/11/2021 COMPR EHENS NIKUNJ METAB OLIC PANEL potassium 4.5 mmol/ L 3.5-5. 3 normal Not Available [address], [address], 06/11/2021 19:51:57 06/10/19 22 06/11/2021 COMPR EHENS NIKUNJ METAB OLIC PANEL chloride 104 mmol/ L 98-110 normal Not Available [address], [address], 06/11/2021 19:51:57 06/10/19 22 06/11/2021 COMPR EHENS NIKUNJ METAB OLIC PANEL carbon dioxide 26 mmol/ L 20-32 normal Not Available [address], [address], 06/11/2021 19:51:57 06/10/19 22 06/11/2021 COMPR EHENS NIKUNJ METAB OLIC PANEL calcium 9.3 mg/dL 8.6-10 .2 normal Not Available [address], [address], 06/11/2021 19:51:57 06/10/19 22 06/11/2021 COMPR EHENS NIKUNJ METAB OLIC PANEL protein, total 6.8 g/dL 6.1-8. 1 normal Not Available [address], [address], 06/11/2021 19:51:57 06/10/19 22 06/11/2021 COMPR EHENS NIKUNJ METAB OLIC PANEL albumin 4.1 g/dL 3.6-5. 1 normal Not Available [address], [address], 06/11/2021 19:51:57 06/10/19 22 06/11/2021 COMPR EHENS NIKUNJ METAB OLIC PANEL globulin 2.7 g/dL_ (calc ) 1.9-3. 7 normal Not Available [address], [address], 06/11/2021 19:51:57 06/10/19 22 06/11/2021 COMPR EHENS NIKUNJ METAB OLIC PANEL albumin/glob ulin ratio 1.5 (calc ) 1.0-2. 5 normal Not Available [address], [address], 06/11/2021 19:51:57 06/10/19 22 06/11/2021 COMPR EHENS NIKUNJ METAB OLIC PANEL bilirubin, total 0.4 mg/dL 0.2-1. 2 normal Not Available [address], [address], 06/11/2021 19:51:57 06/10/19 22 06/11/2021 COMPR EHENS NIKUNJ METAB OLIC PANEL alkaline phosphatase 87 U/L 31-125 normal Not Available [facility] [address], [address], 06/11/2021 19:51:57 06/10/19 22 06/11/2021 COMPR EHENS NIKUNJ METAB OLIC PANEL AST 14 U/L 10-30 normal Not Available [address], [address], 06/11/2021 19:51:57 06/10/19 22 06/11/2021 COMPR EHENS NIKUNJ METAB OLIC PANEL ALT 11 U/L 6-29 normal Not Available [address], [address], 06/11/2021 19:51:57 06/10/19 22 06/11/2021 TESTO STERO NE, FREE, BIOAV AILAB LE AND TOTAL , MS albumin 4.4 g/dL 3.6-5. 1 Not Available [address], [address], 06/11/2021 19:51:57 06/10/19 22 06/11/2021 TESTO STERO NE, FREE, BIOAV AILAB LE AND TOTAL , MS sex hormone binding globulin 118.1 nmol/ L 17-124 Not Available [address], [address], 06/11/2021 19:51:57 06/10/19 22 06/11/2021 TESTO STERO NE, FREE, BIOAV AILAB LE AND TOTAL , MS testosterone , free 1.3 pg/mL 0.2-5. 0 Not Available [address], [address], 06/11/2021 19:51:57 06/10/19 22 06/11/2021 TESTO STERO NE, FREE, BIOAV AILAB LE AND TOTAL , MS testosterone ,bioavailabl e 2.6 NG/dL 0.5-8. 5 Not Available [address], [address], 06/11/2021 19:51:57 06/10/19 22 06/11/2021 TESTO STERO [...] This test was devel oped and its amlik tical perfo rmanc e jarrett cteri stics have been deter mined by [employer]. It has not been clear ed or appro mary by the FDA. This assay has been valid ated pursu ant to the CLIA regul ation s and is used for clini florentino purpo ses. [facility] med fusio n [address] [facility] [address] [place] [address] [phone] Jose todd MD Not Available [employer] [facility] [address] [address] [place], [address], 06/11/2021 19:51:57 08/28/19 22 09/05/2021 PANCR EATIC [...] subst ituti on thera py. Not Available [facility] [address], [place], [address], 09/05/2021 21:17:50 08/28/19 22 09/05/2021 YAQUELIN C DISEA SE DIAGN OSTIC PANEL tissue transglutami nase Ab, IgG tnp TEST NOT PERFO RMED No serum recei mary. Not Available [facility] [address] [place], [address], 09/05/2021 21:17:49 08/28/19 22 09/05/2021 YAQUELIN C DISEA SE DIAGN OSTIC PANEL gliadin (deamidated) Ab (IgA) tnp TEST NOT PERFO RMED No serum recei mary. Not Available [address], [address], 09/05/2021 21:17:49 08/28/19 22 09/05/2021 YAQUELIN C DISEA SE DIAGN OSTIC PANEL immunoglobul in A tnp TEST NOT PERFO RMED No serum recei mary. Not Available [address] [address] [place], [address], 09/05/2021 21:17:49 08/28/19 22 08/30/2021 FECAL FAT, QUALI TATIV E fecal fat, qualitative normal normal Not Available [address] [address] [place], [address], 08/30/2021 13:31:40 11/11/19 22 11/14/2021 TSH+F REE T4 TSH 4.27 mIU/L normal Refer ence Range > or = 20 Years 0.40- 4.50 Pregn [place] Range s First trime ster 0.26- 2.66 Secon d trime ster 0.55- 2.73 Third trime ster 0.43- 2.91 Not Available [facility] [address] [address] [place], [address], 11/14/2021 15:04:20 11/11/1911/14/2021 TSH+F REE T4 T4, free 1.2 NG/dL 0.8-1. 8 normal Not Available [facility] [address] [address] [place], [address], 11/14/2021 15:04:20 11/11/19 22 11/14/2021 VITAM IN [...] /MS is recom pola d: order code 94443 (sayra ents >2yrs ). See Note 1 Note 1 For addit ional infor christina brandt refer to http: //[facility] om/fa q/FAQ 199 (This link is being provi ded for infor kelsy castro/ cecil aguilerao ses only. ) Not Available [facility] [address], [address], 11/14/2021 15:04:20 11/11/19 22 11/14/2021 T3, FREE T3, free 3.0 pg/mL 2.3-4. 2 normal Not Available [facility] [address], [address], 11/14/2021 15:04:19 11/11/19 22 11/14/2021 VITAM IN B12/F OLATE , SERUM PANEL vitamin B12 >2000 pg/mL 200-11 00 high Not Available [facility] [address], [address], 11/14/2021 15:04:18 11/11/19 22 11/14/2021 VITAM IN B12/F OLATE , SERUM PANEL folate, serum 4.0 NG/mL low Refer ence Range Low: <3.4 Borde rline : 3.4-5 .4 Brit l: >5.4 Not Available [facility] [address], [address], 11/14/2021 15:04:18 11/11/19 22 11/14/2021 DHEA SULFA TE DHEA sulfate 171 mcg/d L 19-237 normal Not Available [address], [address], 11/14/2021 15:04:18 11/11/19 22 11/14/2021 YAQUELIN C DISEA SE DIAGN OSTIC PANEL tissue transglutami nase Ab, IgG <1.0 U/mL normal Value Inter preta tion ----- ----- ----- ---- <15.0 Antib boby not detec queenie > or = 15.0 Antib boby detec queenie Not Available [address], [address], 11/14/2021 15:04:18 11/11/19 22 11/14/2021 YAQUELIN C DISEA SE DIAGN OSTIC PANEL tissue transglutami nase Ab, IgA <1.0 U/mL normal Value Inter preta tion ----- ----- ----- ---- <15.0 Antib boby not detec queenie > or = 15.0 Antib boby detec queenie Not Available [address], [address], 11/14/2021 15:04:18 11/11/19 22 11/14/2021 YAQUELIN C DISEA SE DIAGN OSTIC PANEL gliadin (deamidated) Ab (IgA) <1.0 U/mL normal Value Inter preta tion ----- ----- ----- ---- <15.0 Antib boby not detec queenie > or = 15.0 Antib boby detec queenie Not Available [address], [address], 11/14/2021 15:04:18 11/11/19 22 11/14/2021 YAQUELIN C DISEA SE DIAGN OSTIC PANEL gliadin (deamidated) Ab (IgG) <1.0 U/mL normal Value Inter preta tion ----- ----- ----- ---- <15.0 Antib boby not detec queenie > or = 15.0 Antib boby detec queenie Not Available [address], [address], 11/14/2021 15:04:18 11/11/19 22 11/14/2021 YAQUELIN C DISEA SE DIAGN OSTIC PANEL immunoglobul in A 106 mg/dL 47-310 normal Not Available [address], [address], 11/14/2021 15:04:18 11/11/19 22 11/14/2021 COMPR EHENS NIKUNJ METAB OLIC PANEL glucose 72 mg/dL 65-99 normal Fasti ng refer ence inter dipika Not Available [address], [address], 11/14/2021 15:04:17 11/11/19 22 11/14/2021 COMPR EHENS NIKUNJ METAB OLIC PANEL urea nitrogen (BUN) 8 mg/dL 7-25 normal Not Available [address], [address], 11/14/2021 15:04:17 11/11/19 22 11/14/2021 COMPR EHENS NIKUNJ METAB OLIC PANEL creatinine 0.66 mg/dL 0.50-0 .97 normal Not Available [address], [address], 11/14/2021 15:04:17 11/11/19 22 11/14/2021 COMPR EHENS [...] kdoqi /gfr% 5Fcal culat or Not Available [address], [address], 11/14/2021 15:04:17 11/11/19 22 11/14/2021 COMPR EHENS NIKUNJ METAB OLIC PANEL BUN/creatini ne ratio not applic able (calc ) 6-22 Not Available [address], [address], 11/14/2021 15:04:17 11/11/19 22 11/14/2021 COMPR EHENS NIKUNJ METAB OLIC PANEL sodium 138 mmol/ L 135-14 6 normal Not Available [address], [address], 11/14/2021 15:04:17 11/11/19 22 11/14/2021 COMPR EHENS NIKUNJ METAB OLIC PANEL potassium 4.6 mmol/ L 3.5-5. 3 normal Not Available [address], [address], 11/14/2021 15:04:17 11/11/19 22 11/14/2021 COMPR EHENS NIKUNJ METAB OLIC PANEL chloride 105 mmol/ L 98-110 normal Not Available [address], [address], 11/14/2021 15:04:17 11/11/19 22 11/14/2021 COMPR EHENS NIKUNJ METAB OLIC PANEL carbon dioxide 25 mmol/ L 20-32 normal Not Available [address], [address], 11/14/2021 15:04:17 11/11/19 22 11/14/2021 COMPR EHENS NIKUNJ METAB OLIC PANEL calcium 9.3 mg/dL 8.6-10 .2 normal Not Available [address], [address], 11/14/2021 15:04:17 11/11/19 22 11/14/2021 COMPR EHENS NIKUNJ METAB OLIC PANEL protein, total 6.8 g/dL 6.1-8. 1 normal Not Available [address], [address], 11/14/2021 15:04:17 11/11/19 22 11/14/2021 COMPR EHENS NIKUNJ METAB OLIC PANEL albumin 3.9 g/dL 3.6-5. 1 normal Not Available [address], [address], 11/14/2021 15:04:17 11/11/19 22 11/14/2021 COMPR EHENS NIKUNJ METAB OLIC PANEL globulin 2.9 g/dL_ (calc ) 1.9-3. 7 normal Not Available [address], [address], 11/14/2021 15:04:17 11/11/19 22 11/14/2021 COMPR EHENS NIKUNJ METAB OLIC PANEL albumin/glob ulin ratio 1.3 (calc ) 1.0-2. 5 normal Not Available [address], [address], 11/14/2021 15:04:17 11/11/19 22 11/14/2021 COMPR EHENS NIKUNJ METAB OLIC PANEL bilirubin, total 0.4 mg/dL 0.2-1. 2 normal Not Available [address], [address], 11/14/2021 15:04:17 11/11/19 22 11/14/2021 COMPR EHENS NIKUNJ METAB OLIC PANEL alkaline phosphatase 84 U/L 31-125 normal Not Available [address], [address], 11/14/2021 15:04:17 11/11/19 22 11/14/2021 COMPR EHENS NIKUNJ METAB OLIC PANEL AST 12 U/L 10-30 normal Not Available [address], [address], 11/14/2021 15:04:17 11/11/19 22 11/14/2021 COMPR EHENS NIKUNJ METAB OLIC PANEL ALT 7 U/L 6-29 normal Not Available [address], [address], 11/14/2021 15:04:17 11/11/19 22 11/14/2021 TESTO STERO NE, FREE, BIOAV AILAB LE AND TOTAL , MS albumin 4.0 g/dL 3.6-5. 1 Not Available [address], [address], 11/14/2021 15:04:16 11/11/19 22 11/14/2021 TESTO STERO NE, FREE, BIOAV AILAB LE AND TOTAL , MS sex hormone binding globulin 151.9 nmol/ L 17-124 high Not Available [address], [address], 11/14/2021 15:04:16 11/11/1911/14/2021 TESTO STERO NE, FREE, BIOAV AILAB LE AND TOTAL , MS testosterone , free 0.9 pg/mL 0.2-5. 0 Not Available [address], [address], 11/14/2021 15:04:16 11/11/1911/14/2021 TESTO STERO NE, FREE, BIOAV AILAB LE AND TOTAL , MS testosterone ,bioavailabl e 1.7 NG/dL 0.5-8. 5 Not Available [address], [address], 11/14/2021 15:04:16 11/11/19 22 11/14/2021 TESTO STERO [...] cteri stics have been deter mined by [employer]. It has not been clear ed or appro mary by the FDA. This assay has been valid ated pursu ant to the CLIA regul ation s and is used for clini florentino purpo ses. F med fusfarzaneh n [address] [facility] [address] [facility] [address] [phone] Jose todd MD Not Available [address] [address] [place], [address], 11/14/2021 15:04:16 04/21/19 23 04/25/2022 TESTO STERO NE, FREE, BIOAV AILAB LE AND TOTAL , MS albumin 4.1 g/dL 3.6-5. 1 Not Available [facility] [address] [address] [place], [address], 04/25/2022 15:36:12 04/21/19 23 04/25/2022 TESTO STERO NE, FREE, BIOAV AILAB LE AND TOTAL , MS sex hormone binding globulin 161.5 nmol/ L 17-124 high Not Available [facility] [address] [address] [place], [address], 04/25/2022 15:36:12 04/21/19 23 04/25/2022 TESTO STERO NE, FREE, BIOAV AILAB LE AND TOTAL , MS testosterone , free 0.7 pg/mL 0.2-5. 0 Not Available [facility] [address] [address] [place], [address], 04/25/2022 15:36:12 04/21/1904/25/2022 TESTO STERO NE, FREE, BIOAV AILAB LE AND TOTAL , MS testosterone ,bioavailabl e 1.4 NG/dL 0.5-8. 5 Not Available [address], [address], 04/25/2022 15:36:12 04/21/19 23 04/25/2022 TESTO STERO NE, FREE, BIOAV AILAB LE AND TOTAL , MS testosterone , total, MS 25 NG/dL 2-45 For addit ional infor christina brandt refer to https ://ed ucati on.qu estdi [employer]. com/f aq/FA Q165 (This link is being provi ded for infor kelsy nal/e ducat ional purpo ses only. ) (Note ) This test was devel oped and its malik tical perfo rmanc e jarrett cteri stics have been deter mined by [employer]. It has not been clear ed or appro mary by the FDA. This assay has been valid ated pursu ant to the CLIA regul ation s and is used for clini florentino purpo ses. MDF med fusio n [address] [facility] [address] [facility] [address] [phone] Jose todd MD Not Available [address] [address] [place], [address], 04/25/2022 15:36:12 04/21/1904/25/2022 COMPR EHENS NIKUNJ METAB OLIC PANEL glucose 84 mg/dL 65-99 normal Fasti ng refer ence inter dipika Not Available [facility] [address] [address] [place], [address], 04/25/2022 15:36:13 04/21/19 23 04/25/2022 COMPR EHENS NIKUNJ METAB OLIC PANEL urea nitrogen (BUN) 9 mg/dL 7-25 normal Not Available [facility] [address] [address] [place], [address], 04/25/2022 15:36:13 04/21/19 23 04/25/2022 COMPR EHENS NIKUNJ METAB OLIC PANEL creatinine 0.71 mg/dL 0.50-0 .97 normal Not Available [address], [address], 04/25/2022 15:36:13 04/21/19 23 04/25/2022 COMPR EHENS [...] kdoqi /gfr% 5Fcal culat or Not Available [address], [address], 04/25/2022 15:36:13 04/21/19 23 04/25/2022 COMPR EHENS NIKUNJ METAB OLIC PANEL BUN/creatini ne ratio NOT APPLIC ABLE (calc ) 6-22 Not Available [address], [address], 04/25/2022 15:36:13 04/21/19 23 04/25/2022 COMPR EHENS NIKUNJ METAB OLIC PANEL sodium 140 mmol/ L 135-14 6 normal Not Available [address], [address], 04/25/2022 15:36:13 04/21/19 23 04/25/2022 COMPR EHENS NIKUNJ METAB OLIC PANEL potassium 4.3 mmol/ L 3.5-5. 3 normal Not Available [address], [address], 04/25/2022 15:36:13 04/21/19 23 04/25/2022 COMPR EHENS NIKUNJ METAB OLIC PANEL chloride 103 mmol/ L 98-110 normal Not Available [address], [address], 04/25/2022 15:36:13 04/21/19 23 04/25/2022 COMPR EHENS NIKUNJ METAB OLIC PANEL carbon dioxide 26 mmol/ L 20-32 normal Not Available [address], [address], 04/25/2022 15:36:13 04/21/19 23 04/25/2022 COMPR EHENS NIKUNJ METAB OLIC PANEL calcium 9.5 mg/dL 8.6-10 .2 normal Not Available [address], [address], 04/25/2022 15:36:13 04/21/19 23 04/25/2022 COMPR EHENS NIKUNJ METAB OLIC PANEL protein, total 6.7 g/dL 6.1-8. 1 normal Not Available [address], [place], [address], 04/25/2022 15:36:13 04/21/19 23 04/25/2022 COMPR EHENS NIKUNJ METAB OLIC PANEL albumin 4.0 g/dL 3.6-5. 1 normal Not Available [address], [address], 04/25/2022 15:36:13 04/21/19 23 04/25/2022 COMPR EHENS NIKUNJ METAB OLIC PANEL globulin 2.7 g/dL_ (calc ) 1.9-3. 7 normal Not Available [address], [address], 04/25/2022 15:36:13 04/21/19 23 04/25/2022 COMPR EHENS NIKUNJ METAB OLIC PANEL albumin/glob ulin ratio 1.5 (calc ) 1.0-2. 5 normal Not Available [address], [address], 04/25/2022 15:36:13 04/21/19 23 04/25/2022 COMPR EHENS NIKUNJ METAB OLIC PANEL bilirubin, total 0.4 mg/dL 0.2-1. 2 normal Not Available [address], [address], 04/25/2022 15:36:13 04/21/19 23 04/25/2022 COMPR EHENS NIKUNJ METAB OLIC PANEL alkaline phosphatase 100 U/L 31-125 normal Not Available [address], [address], 04/25/2022 15:36:13 04/21/19 23 04/25/2022 COMPR EHENS NIKUNJ METAB OLIC PANEL AST 11 U/L 10-30 normal Not Available [address], [address], 04/25/2022 15:36:13 04/21/19 23 04/25/2022 COMPR EHENS NIKUNJ METAB OLIC PANEL ALT 7 U/L 6-29 normal Not Available [address], [address], 04/25/2022 15:36:13 04/21/19 23 04/25/2022 DHEA SULFA TE DHEA sulfate 188 mcg/d L 19-237 normal Not Available [address], [address], 04/25/2022 15:36:13 04/21/19 23 04/25/2022 VITAM IN B12/F OLATE , SERUM PANEL vitamin B12 487 pg/mL 200-11 00 normal Not Available [address], [address], 04/25/2022 15:36:14 04/21/19 23 04/25/2022 VITAM IN B12/F OLATE , SERUM PANEL folate, serum 20.6 NG/mL normal Refer ence Range Low: <3.4 Borde rline : 3.4-5 .4 Brit l: >5.4 Not Available [facility] [address] [place], [address], 04/25/2022 15:36:14 04/21/1904/25/2022 T3, FREE T3, free 2.8 pg/mL 2.3-4. 2 normal Not Available [facility] [address] [place], [address], 04/25/2022 15:36:14 04/21/19 23 04/25/2022 VITAM IN [...] /MS is recom pola d: order code 96878 (sayra ents >2yrs ). See Note 1 Note 1 For addit ional infor christina brandt refer to http: //althea Tobiasia gnost ics.c om/fa q/FAQ 199 (This link is being provi ded for infor kelsy castro/ cecil marx purpo ses only. ) Not Available [facility] [address] [place], [address], 04/25/2022 15:36:15 04/21/1904/25/2022 TSH+F REE T4 TSH 6.13 mIU/L high Refer ence Range > or = 20 Years 0.40- 4.50 Pregn austin Range s First trime ster 0.26- 2.66 Secon d trime ster 0.55- 2.73 Third trime ster 0.43- 2.91 Not Available [address], [address], 04/25/2022 15:36:15 04/21/19 23 04/25/2022 TSH+F REE T4 T4, free 1.1 NG/dL 0.8-1. 8 normal Not Available [address], [address], 04/25/2022 15:36:15 07/28/19 23 08/01/2022 COMPR EHENS NIKUNJ METAB OLIC PANEL glucose 86 mg/dL 65-99 normal Fasti ng refer ence inter dipika Not Available [address], [address], 08/01/2022 16:35:37 07/28/19 23 08/01/2022 COMPR EHENS NIKUNJ METAB OLIC PANEL urea nitrogen (BUN) 9 mg/dL 7-25 normal Not Available [address], [address], 08/01/2022 16:35:37 07/28/19 23 08/01/2022 COMPR EHENS NIKUNJ METAB OLIC PANEL creatinine 0.76 mg/dL 0.50-0 .97 normal Not Available [address], [address], 08/01/2022 16:35:37 07/28/19 23 08/01/2022 COMPR EHENS [...] kdoqi /gfr% 5Fcal culat or Not Available [address], [address], 08/01/2022 16:35:37 07/28/19 23 08/01/2022 COMPR EHENS NIKUNJ METAB OLIC PANEL BUN/creatini ne ratio NOT APPLIC ABLE (calc ) 6-22 Not Available [address], [address], 08/01/2022 16:35:37 07/28/19 23 08/01/2022 COMPR EHENS NIKUNJ METAB OLIC PANEL sodium 140 mmol/ L 135-14 6 normal Not Available [address], [address], 08/01/2022 16:35:37 07/28/19 23 08/01/2022 COMPR EHENS NIKUNJ METAB OLIC PANEL potassium 4.5 mmol/ L 3.5-5. 3 normal Not Available [address], [address], 08/01/2022 16:35:37 07/28/19 23 08/01/2022 COMPR EHENS NIKUNJ METAB OLIC PANEL chloride 104 mmol/ L 98-110 normal Not Available [address], [address], 08/01/2022 16:35:37 07/28/19 23 08/01/2022 COMPR EHENS NIKUNJ METAB OLIC PANEL carbon dioxide 27 mmol/ L 20-32 normal Not Available [address], [address], 08/01/2022 16:35:37 07/28/19 23 08/01/2022 COMPR EHENS NIKUNJ METAB OLIC PANEL calcium 9.0 mg/dL 8.6-10 .2 normal Not Available [address], [address], 08/01/2022 16:35:37 07/28/19 23 08/01/2022 COMPR EHENS NIKUNJ METAB OLIC PANEL protein, total 6.7 g/dL 6.1-8. 1 normal Not Available [address], [address], 08/01/2022 16:35:37 07/28/19 23 08/01/2022 COMPR EHENS NIKUNJ METAB OLIC PANEL albumin 4.1 g/dL 3.6-5. 1 normal Not Available [address], [address], 08/01/2022 16:35:37 07/28/19 23 08/01/2022 COMPR EHENS NIKUNJ METAB OLIC PANEL globulin 2.6 g/dL_ (calc ) 1.9-3. 7 normal Not Available [address], [address], 08/01/2022 16:35:37 07/28/19 23 08/01/2022 COMPR EHENS NIKUNJ METAB OLIC PANEL albumin/glob ulin ratio 1.6 (calc ) 1.0-2. 5 normal Not Available [address], [address], 08/01/2022 16:35:37 07/28/19 23 08/01/2022 COMPR EHENS NIKUNJ METAB OLIC PANEL bilirubin, total 0.4 mg/dL 0.2-1. 2 normal Not Available [address], [address], 08/01/2022 16:35:37 07/28/19 23 08/01/2022 COMPR EHENS NIKUNJ METAB OLIC PANEL alkaline phosphatase 83 U/L 31-125 normal Not Available [facility] [address], [address], 08/01/2022 16:35:37 07/28/19 23 08/01/2022 COMPR EHENS NIKUNJ METAB OLIC PANEL AST 11 U/L 10-30 normal Not Available [address], [address], 08/01/2022 16:35:37 07/28/19 23 08/01/2022 COMPR EHENS NIKUNJ METAB OLIC PANEL ALT 7 U/L 6-29 normal Not Available [address], [address], 08/01/2022 16:35:37 07/28/19 23 08/01/2022 DHEA SULFA TE DHEA sulfate 178 mcg/d L 19-237 normal Not Available [address], [address], 08/01/2022 16:35:38 07/28/19 23 08/01/2022 INSUL IN [...] Diagn ostic s in 2021. Not Available [address], [address], 08/01/2022 16:35:39 07/28/19 23 08/01/2022 VITAM IN B12/F OLATE , SERUM PANEL vitamin B12 >2000 pg/mL 200-11 00 high Not Available [address], [address], 08/01/2022 16:35:39 07/28/19 23 08/01/2022 VITAM IN B12/F OLATE , SERUM PANEL folate, serum 16.8 NG/mL normal Refer ence Range Low: <3.4 Borde rline : 3.4-5 .4 Brit l: >5.4 Not Available [facility] [address], [address], 08/01/2022 16:35:39 07/28/19 23 08/01/2022 T3, FREE T3, free 3.1 pg/mL 2.3-4. 2 normal Not Available [facility] [address] [address] [place], [address], 08/01/2022 16:35:40 07/28/19 23 08/01/2022 VITAM IN [...] /MS is recom pola d: order code [id number] (sayra ents >2yrs ). See Note 1 Note 1 For addit ional infor christina brandt e refer to http: //althea Das gnjames ics.c om/fa q/FAQ 199 (This link is being provi ded for infor kelsy castro/ cecil marx purpo ses only. ) Not Available [facility] [address] [address] [place], [address], 08/01/2022 16:35:41 07/28/19 23 08/01/2022 TSH+F REE T4 TSH 1.18 mIU/L normal Refer ence Range > or = 20 Years 0.40- 4.50 Pregn austin Range s First trime ster 0.26- 2.66 Secon d trime ster 0.55- 2.73 Third trime ster 0.43- 2.91 Not Available [facility] [address] [address] [place], [address], 08/01/2022 16:35:42 07/28/19 23 08/01/2022 TSH+F REE T4 T4, free 1.2 NG/dL 0.8-1. 8 normal Not Available [facility] [address] [place], [address], 08/01/2022 16:35:42 07/28/1908/01/2022 TESTO STERO NE, FREE (DIAL YSIS) AND TOTAL ,MS testosterone , total, MS 24 NG/dL 2-45 For addit ional infor christina brandt refer to https ://ed ati on.qu estdi [employer]. com/f aq/FA Q165 (This link is being provi ded for infor kelsy nal/e ducat ional purpo ses only. ) (Note ) This test was devel oped and its malik tical perfo rmanc e jarrett cteri stics have been deter mined by [employer]. It has not been clear ed or appro mary by the FDA. This assay has been valid ated pursu ant to the CLIA regul ation s and is used for clini florentino purpo ses. Not Available [facility] [address] [place], [address], 08/01/2022 16:35:43 07/28/1908/01/2022 TESTO STERO NE, FREE (DIAL YSIS) AND TOTAL ,MS testosterone , free 1.1 pg/mL 0.1-6. 4 (Note ) This test was devel oped and its malik tical perfo rmanc e jarrett cteri stics have been deter mined by [employer]. It has not been clear ed or appro mary by the FDA. This assay has been valid ated pursu ant to the CLIA regul ation s and is used for clini florentino purpo ses. JOHNATHON med fusfarzaneh n [address] [facility] [address] [place] [address] [phone] Jose todd MD Not Available [facility] [address] [place], [address], 08/01/2022 16:35:43 10/20/1910/24/2022 COMPR EHENS NIKUNJ METAB OLIC PANEL glucose 75 mg/dL 65-99 normal Fasti ng refer ence inter dipika Not Available [address], [address], 10/24/2022 16:54:19 10/20/1910/24/2022 COMPR EHENS NIKUNJ METAB OLIC PANEL urea nitrogen (BUN) 12 mg/dL 7-25 normal Not Available [address], [address], 10/24/2022 16:54:19 10/20/1910/24/2022 COMPR EHENS NIKUNJ METAB OLIC PANEL creatinine 0.75 mg/dL 0.50-0 .97 normal Not Available [address], [address], 10/24/2022 16:54:19 10/20/1910/24/2022 COMPR EHENS NIKUNJ METAB OLIC PANEL eGFR 108 mL/mi n/1.7 3m2 > or = 60 normal Not Available [address], [address], 10/24/2022 16:54:19 10/20/1910/24/2022 COMPR EHENS NIKUNJ METAB OLIC PANEL BUN/creatini ne ratio SEE NOTE: (calc ) 6-22 Not Repor queenie: BUN and Creat inine are withi n refer ence range . Not Available [address], [address], 10/24/2022 16:54:19 10/20/1910/24/2022 COMPR EHENS NIKUNJ METAB OLIC PANEL sodium 139 mmol/ L 135-14 6 normal Not Available [address], [address], 10/24/2022 16:54:19 10/20/1910/24/2022 COMPR EHENS NIKUNJ METAB OLIC PANEL potassium 4.5 mmol/ L 3.5-5. 3 normal Not Available [address], [address], 10/24/2022 16:54:19 10/20/1910/24/2022 COMPR EHENS NIKUNJ METAB OLIC PANEL chloride 102 mmol/ L 98-110 normal Not Available [address], [address], 10/24/2022 16:54:19 10/20/19 23 10/24/2022 COMPR EHENS NIKUNJ METAB OLIC PANEL carbon dioxide 27 mmol/ L 20-32 normal Not Available [address], [address], 10/24/2022 16:54:19 10/20/1910/24/2022 COMPR EHENS NIKUNJ METAB OLIC PANEL calcium 9.5 mg/dL 8.6-10 .2 normal Not Available [address], [address], 10/24/2022 16:54:19 10/20/1910/24/2022 COMPR EHENS NIKUNJ METAB OLIC PANEL protein, total 6.9 g/dL 6.1-8. 1 normal Not Available [address], [address], 10/24/2022 16:54:19 10/20/1910/24/2022 COMPR EHENS NIKUNJ METAB OLIC PANEL albumin 4.1 g/dL 3.6-5. 1 normal Not Available [address], [address], 10/24/2022 16:54:19 10/20/1910/24/2022 COMPR EHENS NIKUNJ METAB OLIC PANEL globulin 2.8 g/dL_ (calc ) 1.9-3. 7 normal Not Available [address] [place], [address], 10/24/2022 16:54:19 10/20/1910/24/2022 COMPR EHENS NIKUNJ METAB OLIC PANEL albumin/glob ulin ratio 1.5 (calc ) 1.0-2. 5 normal Not Available [address], [address], 10/24/2022 16:54:19 10/20/19 23 10/24/2022 COMPR EHENS NIKUNJ METAB OLIC PANEL bilirubin, total 0.4 mg/dL 0.2-1. 2 normal Not Available [address], [address], 10/24/2022 16:54:19 10/20/19 23 10/24/2022 COMPR EHENS NIKUNJ METAB OLIC PANEL alkaline phosphatase 80 U/L 31-125 normal Not Available [address], [address], 10/24/2022 16:54:19 10/20/1910/24/2022 COMPR EHENS NIKUNJ METAB OLIC PANEL AST 13 U/L 10-30 normal Not Available [address], [address], 10/24/2022 16:54:19 10/20/19 23 10/24/2022 COMPR EHENS NIKUNJ METAB OLIC PANEL ALT 10 U/L 6-29 normal Not Available [address], [address], 10/24/2022 16:54:19 10/20/1910/24/2022 DHEA SULFA TE DHEA sulfate 174 mcg/d L 19-237 normal Not Available [address], [address], 10/24/2022 16:54:20 10/20/19 23 10/24/2022 INSUL IN insulin 10.5 uIU/m L normal Refer ence Range < or = 18.4 Risk: Optim al < or = 18.4 Moder ate NA High >18.4 Adult cardi ovasc ular event risk categ ory cut point s (opti mal, moder ate, high) are based on Insul in Refer ence Inter dipika studi es perfo rmed at [facility] Diagn ostic s in 2021. Not Available [facility] [address] [address] [place], [address], 10/24/2022 16:54:21 10/20/19 23 10/24/2022 VITAM IN B12/F OLATE , SERUM PANEL vitamin B12 462 pg/mL 200-11 00 normal Not Available [facility] [address] [address] [place], [address], 10/24/2022 16:54:22 10/20/19 23 10/24/2022 VITAM IN B12/F OLATE , SERUM PANEL folate, serum 20.4 NG/mL normal Refer ence Range Low: <3.4 Borde rline : 3.4-5 .4 Brit l: >5.4 Not Available [facility] [address] [address] [place], [address], 10/24/2022 16:54:22 10/20/19 23 10/24/2022 T3, FREE T3, free 2.7 pg/mL 2.3-4. 2 normal Not Available [facility] [address] [address] [place], [address], 10/24/2022 16:54:23 10/20/19 23 10/24/2022 VITAM IN [...] /MS is recom pola d: order code [id number] (sayra ents >2yrs ). See Note 1 Note 1 For addit ional infor christina brandt refer to http: //[facility] alisson Tobiasia gnost ics.c om/fa q/FAQ 199 (This link is being provi ded for infor matfarzaneh nal/ educa rony l purpo ses only. ) Not Available [employer] [address], [address], 10/24/2022 16:54:23 10/20/1910/24/2022 TSH+F REE T4 TSH 3.73 mIU/L normal Refer ence Range > or = 20 Years 0.40- 4.50 Pregn austin Range s First trime ster 0.26- 2.66 Secon d trime ster 0.55- 2.73 Third trime ster 0.43- 2.91 Not Available [facility] [address], [address], 10/24/2022 16:54:24 10/20/1910/24/2022 TSH+F REE T4 T4, free 1.0 NG/dL 0.8-1. 8 normal Not Available [facility] [address], [address], 10/24/2022 16:54:24 10/20/1910/24/2022 TESTO STERO NE, FREE (DIAL YSIS) AND TOTAL ,MS testosterone , total, MS 28 NG/dL 2-45 For addit ional infor christina brandt refer to https ://ed ucati on.qu estdi [employer]. com/f aq/FA Q165 (This link is being provi ded for infor matio nal/e ducat ional purpo ses only. ) (Note ) This test was devel oped and its malik tical perfo rmanc e jarrett cteri stics have been deter mined by [facility]. It has not been clear ed or appro mary by the FDA. This assay has been valid ated pursu ant to the CLIA regul ation s and is used for clini florentino purpo ses. Not Available [facility] [address] [place], [address], 10/24/2022 16:54:25 10/20/19 23 10/24/2022 TESTO STERO NE, FREE (DIAL YSIS) AND TOTAL ,MS testosterone , free 1.6 pg/mL 0.1-6. 4 (Note ) This test was devel oped and its malik tical perfo rmanc e jarrett cteri stics have been deter mined by [employer] [facility]. It has not been clear ed or appro mary by the FDA. This assay has been valid ated pursu ant to the CLIA regul ation s and is used for clini florentino purpo ses. [facility] med fusio n [address] [facility] [address] [facility] [address] [phone] Stephan barrett MD Not Available [facility] [address] [address] [address], [place], [address], 10/24/2022 16:54:25 08/23/19 22 08/22/2021 US, trans vagin al No observ ation record ed. [id number] [facility] [address], [place], [address], 04/10/2022 18:20:51 07/28/19 23 07/27/2022 US, thyro id No observ ation record ed. [facility] [address], [place], [address], 08/03/2022 23:23:36 Result Notes None recorded. Problems Name Problem SNOMED Code Status Onset Date Resolution Date Notes Provider Name and Address Organization Details Recorded Time Closed fracture of metatarsal bone 89946794 Active Not Available [facility] 3 18:19:45 Fracture of lower leg 797942976 Active Not Available [facility] 3 18:19:45 Polycystic ovary syndrome 455717189 Active 2021 Not Available [facility] 3 18:19:45 Vitamin D deficiency 14886753 Active 2021 Not Available [facility] 3 18:19:45 Loose stool 895098884 Active 2021 Not Available [facility] [facility] 3 18:19:45 Hypothyroidis m [id number] Active 2021 Not Available [facility] 3 18:19:45 Vitamin B12 deficiency (non anemic) 41712877 Active 2021 Not Available [facility] 3 18:19:45 Irregular periods 56847200 Active 2021 Not Available [facility] 3 18:19:46 Thyroid nodule 084813717 Active 2022 Gretta Maldonado MD [address] [place] [address] [address], [place], [address] , [facility] [employer] 3 15:50:28 Problem Notes None recorded. Procedures Surgical History Date Name Laterality Status Provider Name and Address Organization Details Recorded Time laparoscopic sleeve gastrectomy completed Not Available [facility] 04/10/2022 18:19:18 procedure on oral cavity completed Not Available [facility] 04/10/2022 18:19:18 Imaging Results None recorded. Procedure [...] % 97 % 84 /min 97.8 [degF] 256347. 09 g 135/75 mm[Hg] Not Available [facility] 3 18:19:36 Date Recorded Body height Body mass index (BMI) Body weight Body temperature Heart rate Systolic And Diastolic Provider Name and Address Organization Details Last Updated DateTime 3 180.34 cm 40.9 kg/m2 075026. 72 g 96.9 [degF] 96 /min 128/85 mm[Hg] DANNY Arreola [employer] 3 15:42:16 Date Recorded Body mass index (BMI) Body height Oxygen saturation Oxygen saturation in Arterial blood by Pulse oximetry Heart rate Body temperature Body weight Systolic And Diastolic Provider Name and Address Organization Details Last Updated DateTime 2 44.8 kg/m2 180.34 cm 98 % 98 % 90 /min 98 [degF] 027308. 15 g 130/75 mm[Hg] Not Available [facility] 3 18:19:36 Date Recorded Body height Body mass index (BMI) Body weight Heart rate Systolic And Diastolic Provider Name and Address Organization Details Last Updated DateTime 10/28/2022 180.34 cm 40.6 kg/m2 023252.1 g 84 /min 128/83 mm[Hg] Sharon Boothe [employer] 10/28/2022 15:16:50 Date Recorded Body mass index (BMI) Body height Oxygen saturation Oxygen saturation in Arterial blood by Pulse oximetry Heart rate Body weight Systolic And Diastolic Provider Name and Address Organization Details Last Updated DateTime 2 44 kg/m2 180.34 cm 96 % 96 % 94 /min 016044. 47 g 105/78 mm[Hg] Not Available [facility] 3 18:19:36 Social History Question Answer Notes LastModified by [employer] Details LastModified Time Tobacco Smoking Status Never Smoker santy burleson [place], [place] [facility] [employer] 10/28/2022 14:54:06 If You Are , What Was Your Level Of Alcohol Consumption Prior To ? None Information not available 10/28/2022 What Is Your Level Of Caffeine Consumption? Moderate [id number] Information not available 04/10/2022 In The 14 Days Before Symptom Onset, Have You Had Close Contact With A Laboratory-confirm ed COVID-19 While That Case Was Ill? No [email or web address] Information n ot available 10/28/2022 In The 14 Days Before Symptom Onset, Have You Had Close Contact With A Person Who Is Under Investigation For COVID-19 While That Person Was Ill? No [email or web address] Information not available 10/28/2022 What Is The Highest Grade Or Level Of School You Have Completed Or The Highest Degree You Have Received? [id number] [email or web address] Information not available 10/28/2022 What Is Your Relationship Status? [id number] Information not available 04/10/2022 Has Tobacco Cessation Counseling Been Provided? No [email or web address] Information not available 10/28/2022 Have You Recently Traveled Abroad? No [email or web address] Information not available 10/28/2022 Sex: Female Functional Status Question Answer Note LastModified by [employer] Details LastModified Time Do you use any illicit or recreational drugs? No [email or web address] Information not available 10/28/2022 Do you or have you ever used any other forms of tobacco or nicotine? No [email or web address] Information not available 10/28/2022 What is your level of alcohol consumption? 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 Family History Relationship Description Onset Age of this Age Resolved Age Notes LastModified by Organization Details LastModified Time Maternal Grandmother Malignant neoplasm of breast [id number] Not available 04/10/2022 18:19:19 Medical History Condition Response OBESITY Y DEPRESSION (INCLUDING POST ) Y INSOMNIA Y ANEMIA/BLOOD DISORDER Y HYPOTHYROIDISM Y Gynecological HistoryNo gynecological history recorded. Obstetrics History GPAL:G 0 P 0 0 0 0 Past Encounters Encounter ID Performer Location Encounter Start Date Encounter Closed Date Diagnosis/Indication Diagnosis SNOMED-CT Code Diagnosis ICD10 Code Diagnosis IMO Codes Diagnosis Note [id number] Gretta Maldonado MD [facility] [address] [place] [address] 01/19/2021 00:00:00 01/19/2021 18:21:48 [id number] Gretta Maldonado MD [facility] [address] [place] [address] 04/02/2021 00:00:00 04/02/2021 12:24:18 [id number] Gretta Maldonado MD [facility] [address] [place] [address] 07/30/2021 00:00:00 07/30/2021 13:47:56 [id number] [facility] [address] [place] [address] 11/19/2021 00:00:00 11/19/2021 14:59:08 [id number] Gretta Maldonado MD [facility] [address] [place] [address] 07/01/2022 15:20:23 07/01/2022 16:27:28 Hypothyroidism 72877294 E03.9 Continue synthroid 125 mcg daily- repeat [...] on. Vitamin B1 2 deficiency (non anemic) 87319212 E53.8 Continue on B12 injections as patient tolerating well. Vitamin D deficiency 347 93953 E55.9 Continue on vitamin D supplement ation 9629-6817 IU daily depending on sun exposure. Polycystic ovary syndrome 427091462 E28.2 Continue on spironolac tone and metformin [...] nuts (excluding peanuts) and beans. Thyroid nodule 423183536 E04.1 Will send for repeat thyroid ultrasound [...] she chooses to go outside of the [facility] system to obtain labwork she was [...] in her case. She voiced understand ing. [id number] Gretta Maldonado MD [facility] [place] [address] [place] [address] 10/28/2022 14:52:48 10/28/2022 15:40:27 Hypothyroidism 76347605 E03.9 Continue synthroid but uptitrate to 137 [...] and reduce inflammati on. Polycystic ovary syndrome 144553329 E28.2 Continue on spironolac tone and metformin [...] peanuts) and beans. [facility]atio n [facility] dietary plan as this is high protein/lo w carb with natural insulin ward aide s and omega 3 fatty acids to help with inflammati on. Vitamin B1 2 deficiency (non anemic) 37705638 E53.8 Continue on B12 injections as patient [...] Hare Member ID Guarantor Name 10/25/2022 1 [facility] [id number] Michelle E Parcels [id number] Michelle Parcels 10/25/2022 2 [place] 112 Michelle Parcels [id number] Michelle Parcels Notes Date Note Type Note [...] normaltestosterone 25 ng/dL Gretta Maldonado MD [address] [facility], [facility] [address], [place], [address], [facility] [employer] 07/01/2022 16:50:17 10/28/2022 text/html ROS as noted [...] uU/mldheas 174 ug/mL Gretta Maldonado MD [address] [facility], [facility] [address], [place], [address], [place] [facility] 10/28/2022 16:38:32 OBGyn Episode No OBEpisode recorded.
--- OUTSIDE RECORDS SUMMARY | 2024-12-26 17:43 | XMS_ITS | Clinical Summary ---
Author Organization [facility] Address [address], [facility] [address] [place] [address] Phone Care Team Providers Care Bounty Trapper Name Role Phone Wayne Duran DO Primary Care Provider + Candelario Hilliard MD Unavailable [phone] Allergies No known active allergies Medications Vitamins/Mineral s Tablet Take 1 Tab by mouth. Active [...] Syringe-Needle U-100 (INSULIN SYRINGE 1CC/31GX5/16) 31G X 516 1 ML Misc 11/03/2022 Active Norethindrone Acet-Ethinyl Est 1-20 MG-MCG Tablet 02/27/2024 Active Zepbound 10 MG/0.5ML Solution Auto-injector 10/08/2024 Activ e atorvastatin (LIPITOR) 20 MG Tablet 08/20/2024 Active Active Problems Problem Noted Date Diagnosed Date Vitamin B12 deficiency 05/16/2020 Iron deficiency anemia anuj mckeony to inadequate dietary iron intake 12/20/2019 Encounters Date Type Department Care Team Description 10/29/2024 12:45 PM CDT Office Visit [facility] [address] [address] Dorothy Delatorre, GENERAL II FARMWORKER, KINDER TEACHER Iron 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 (Primary Dx); Vitamin B12 deficiency; Other fatigue 10/29/2024 12:30 PM CDT Lab [facility] [address] [address] Lab, Cc [place] Iron deficiency [...] st Contact Info) Description 04/11/2025 9:00 AM A P MECHANIC Lab [facility] [address] [phone] Lab, [facility] 04/11/2025 9:15 AM A P MECHANIC Office Visit [facility] [address] [phone] Candelario Hilliard MD [address] [place] [phone] Health Maintenance Due Date Last Done Comments [...] IRON 97 50 - 212 ug/dL [employer] [facility] UIBC 255 155 - 355 ug/dL [employer] [facility] TIBC 352 261 - 478 ug/dl [employer] [facility] % Saturation 28 20 - 50 % [employer] [facility] 10/29/2024 12:1 5 PM CDT Narrative [employer] [facility] - 10/29/2024 1:00 PM CDT Release to patient->Immediate us Kathy Warner APRN, KINDER TEACHER LAB SEND OUTS Fin al Result [employer] [facility] [place] [address], * CBC WITH AUTO DIFF [place] (10/29/2024 12:15 PM CDT) WBC 7.7 4.0 - 10.0 10*3/uL [employer] [facility] HGB 12.5 11.2 - 15.7 g/dL [employer] [facility] HCT 37.3 34.1 - 44.9 % [employer] [facility] PLT 320 163 - 369 10*3/uL [employer] [facility] MPV 11.1 9.4 - 12.4 fL [employer] [facility] RBC 4.00 3.93 - 5.22 10*6/uL [employer] [facility] MCV 93 79 - 95 fL [facility] MCH 31.3 25.6 - 32.2 pg [employer] [facility] MCHC 33.5 32.2 - 36.5 g/dL [employer] [facility] RDW 12.0 11.6 - 14.4 % [employer] [facility] Neutrophils % 64.3 36.0 - 66.0 % [employer] [facility] Lymphocytes % 29.2 19.0 - 40.0 % [employer] [facility] Monocytes % 4.7 4.1 - 12.1 % [employer] [facility] Eosinophils % 0.8 0.0 - 3.5 % [employer] [facility] Basophils % 0.7 0.0 - 1.0 % [employer] [facility] Absolute Neutrophils 4.9 1.4 - 6.6 10*3/uL [employer] [facility] Absolute Lymphocytes 2.2 0.8 - 4.0 10*3/uL [employer] [facility] Absolute Monocytes 0.4 0.2 - 1.2 10*3/uL [employer] [facility] Absolute Eosinophils 0.1 0.0 - 0.4 10*3/uL [employer] [facility] Absolute Basophils 0.1 0.0 - 0.1 10*3/uL [employer] [facility] 10/29/2024 12:1 5 PM CDT us Kathy Warner GENERAL II FARMWORKER, KINDER TEACHER LAB SEND OUTS Fin al Result Performing Organization Address [facility]/ZIP Co de Phone Number [employer] [facility] [place] [address], [place] [phone] * VITAMIN B12 (10/29/2024 12:15 PM CDT) Vitamin B12 306 180 - 914 pg/mL [facility] Blood 10/29/2024 12:1 5 PM CDT Narrative [facility] - 11/01/2024 2:10 PM CDT Release to patient->Immediate us Kathy Hannah Verdugoei GENERAL II FARMWORKER, KINDER TEACHER CHEMISTRY ORDERABLE S Final Result Performing Organization Address [facility] de Phone Number [facility] [place] [address], [place] [phone] * FOLIC ACID (FOLATE) (10/29/2024 12:15 PM CDT) Folate >20.00 >=5.90 ng/mL [facility] Blood 10/29/2024 12:1 5 PM CDT Narrative [facility] - 11/01/2024 2:10 PM CDT Release to patient->Immediate IS THE PATIENT REQUIRED TO BE FASTING FOR 12 HOURS?->No us Kathy Hannah Verdugoei GENERAL II FARMWORKER, KINDER TEACHER CHEMISTRY ORDERABLE S Final Result Performing Organization Address [facility]/ZIP Co de Phone Number [facility] [place] [phone], * FERRITIN (10/29/2024 12:15 PM CDT) Ferritin 108 11 - 307 ng/mL [employer] [facility] Blood 10/29/2024 12:1 5 PM CDT Narrative [employer] [facility] - 11/01/2024 2:10 PM CDT Release to patient->Immediate Kathy Warner APRN, KINDER TEACHER CHEMISTRY ORDERABLE S Final Result [employer] [facility] [address] [place] [address], * (ABNORMAL) CMP (COMPREHENSIVE METABOLIC PANEL) (10/29/2024 12:15 PM CDT) Glucose 82 70 - 105 mg/dL [facility] Blood Urea Nitrogen 12 7 - 25 mg/dL [facility] Creatinine 0.7 0.6 - 1.2 mg/dL [facility] Sodium 138 136 - 145 mEq/L [facility] Potassium 3.6 3.5 - 5.1 mEq/L [facility] Chloride 102 98 - 107 mEq/L [facility] Bicarbonate 26 21 - 31 mEq/L [facility] Total Bilirubin 0.5 0.3 - 1.0 mg/dL [facility] Alk. Phosphatase 76 34 - 104 U/L [facility] Aspartate Aminotransferase 10(L) 13 - 39 U/L [facility] Alanine Aminotransferase 5(L) 7 - 52 U/L [facility] Total Protein 6.9 6.4 - 8.9 g/dL [facility] Albumin 4.3 3.5 - 5.7 g/dL [facility] Calcium 9.5 8.6 - 10.3 mg/dL [facility] Anion Gap 13.6 7.0 - 15.0 mEq/L [facility] Globulin 2.6 2.0 - 3.5 g/dL [employer] [facility] EGFR 115 >60 ml/min/1. 73m2 [employer] [facility] Comment: This eGFR is calculated using 2020 CKD-EPI Creatinine equation without race modifier based on the NKF-ASN task force recommendations Equation: zPXO=103*min(SCr/k,1)a*max(SCr/k,1)-1.200*0.9938Age*1.012 (if female), where SCr is serum creatinine, k is 0.7 for females and 0.9 for males, and a is -0.241 for females and -0.302 for males Blood 10/29/2024 12:1 5 PM CDT Narrative [employer] [facility] - 10/29/2024 1:00 PM CDT Release to patient->Immediate IS THE PATIENT REQUIRED TO BE FASTING FOR 8 HOURS?->No us Kathy Warner GENERAL II FARMWORKER, KINDER TEACHER CHEMISTRY ORDERABLE S Final Result Performing Organization Address City/State/[facility] Co de Phone Number [employer] [facility] [address] [place] [address], from Last 3 Months Insurance [facility] Care Teams Bounty Trapper Relationship Specialty Start Date End Date Wayne Duran DO [address] [place] [id number] PCP - General Family Medicine 12/07/19 Candelario Hilliard MD [address] [place] [phone] Consulting Physician Oncology 12/07/19
--- OUTSIDE RECORDS SUMMARY | 2024-12-26 17:43 | XMS_ITS | Patient Health Record ---
Author Organization [facility] Address [address] [place] [address] Care Team Providers Care Formation Testing Operator Name Role Phone Gretta Maldonado Unavailable [phone] Migration, Provider Unavailable Unavailable Allergies No Known Allergies Results Component Value Reference Range Flag Notes .HEMOGLOBIN A1c (496) Reviewed date:08/17/2024 09:20:00 PM Interpretation: Performing Lab:Arthur DOUGLASCox Mon[address]Ct[address] [facility] IncurablesIkitzpyYB[address] Merrill Robison Notes/Report: FASTING:YES FASTING: YES HEMOGLOBIN A1c 5.0 <5.7 % of total Hgb N <5.7% Consistent with the absence of diabetes This assay result is consistent with a decreased risk 5.7-6.4% Consistent with increased risk for diabetes > or =6.5% Consistent with diabetes of diabetes. guidelines, hemoglobin A1c <7.0% represents optimal Standards of Medical Care in Diabetes(ADA). control in non- diabetic patients. Different Currently, no consensus exists regarding use of metrics may apply to specific patient populations. According to [place] [employer] (ADA) For the purpose of screening for the presence of (prediabetes) diabetes: hemoglobin A1c for diagnosis of diabetes in children. INSULIN (561) Reviewed date:08/17/2024 09:20:00 PM Interpretation: Performing Lab:Arthur KENNEY-Vgykac63615 Amanda Moon, DsfmueSI[address] Merrill Robison MD Notes/Report: FASTING:YES FASTING: YES INSULIN 9.0 N are based on Insulin Reference Interval Reference Range < or = 18.4 cut points (optimal, moderate, high) studies performed at [facility] Risk: High >18.4 Moderate NA in 2021. Adult cardiovascular event risk category Optimal < or = 18.4 T4, FREE (866) Reviewed date:08/17/2024 09:20:00 PM Interpretation: Performing Lab:ANNE MARIE [employer]-Tpuirw62227 Amanda Moon, JgebxkPC[address] Merrill Robison MD Notes/Report: FASTING:YES FASTING: YES T4, FREE 1.5 0.8-1.8 ng/dL N TSH (899) Reviewed date:08/17/2024 09:20:00 PM Interpretation: Performing Lab:ANNE MARIE [employer]-Keefbs20101 Amanda Moon, SdcmmqNJ[address] Merrill Robison MD Notes/Report: FASTING:YES FASTING: YES TSH 0.08 L > or = 20 Years 0.40-4.50 Second trimester 0.55-2.73 Ranges First trimester 0.26-2.66 Reference Range Third trimester 0.43-2.91 .COMPREHENSIVE METABOLIC HAWKINS (63692) [facility] Reviewed date:12/12/2024 10:05:54 AM Interpretation: Performing Lab:ANNE MARIE [employer]-Nyqwad97820 Amanda Moon, BymwldHI[address] Merrill Robison MD Notes/Report: FASTING:YES FASTING: YES GLUCOSE 76 65-99 mg/dL N Fasting refer ence interval UREA NITROGEN (BUN) 8 7-25 mg/dL N CREATININE 0.70 0.50-0.97 mg/dL N EGFR 116 > OR = 60 mL/min/1.73m2 N BUN/CREATININE RATIO SEE NOTE: 6-22 (calc) reference range. Not Reported: BUN and Creatinine are within SODIUM 140 135-146 mmol/L N POTASSIUM 4.1 3.5-5.3 mmol/L N CHLORIDE 105 98-110 mmol/L N CARBON DIOXIDE 28 20-32 mmol/L N CALCIUM 9.1 8.6-10.2 mg/dL N PROTEIN, TOTAL 6.1 6.1-8.1 g/dL N ALBUMIN 3.8 3.6-5.1 g/dL N GLOBULIN 2.3 1.9-3.7 g/dL (calc) N ALBUMIN/GLOBULIN RATIO 1.7 1.0-2.5 (calc) N BILIRUBIN, TOTAL 0.4 0.2-1.2 mg/dL N ALKALINE PHOSPHATASE 64 31-125 U/L N AST 8 10-30 U/L L ALT 3 6-29 U/L L .CBC (INCLUDES DIFF/PLT) (63 99) Reviewed date:12/12/2024 10:05:54 AM Interpretation: Performing Lab:ANNE MARIE [employer]-Dujeyj01922 Amanda Moon, QgzjwrZY[address] Merrill Robison MD Notes/Report: FASTING:YES FASTING: YES WHITE BLOOD CELL COUNT 7.5 3.8-10.8 Thousand/uL N RED BLOOD CELL COUNT 3.88 3.80-5.10 Million/uL N HEMOGLOBIN 12.1 11.7-15.5 g/dL N HEMATOCRIT 37.4 35.0-45.0 % N MCV 96.4 80.0-100.0 fL N MCH 31.2 27.0-33.0 pg N MCHC 32.4 32.0-36.0 g/dL N red cell parameters and the patient's clinical not clinically significant; however, it should be For adults, a slight decrease in the calculated MCHC interpreted with caution in correlation with other value (in the range of 30 to 32 g/dL) is most likely condition. RDW 11.9 11.0-15.0 % N PLATELET COUNT 347 140-400 Thousand/uL N MPV 12.1 7.5-12.5 fL N ABSOLUTE NEUTROPHILS 4500 4400-3786 cells/uL N ABSOLUTE LYMPHOCYTES 2295 850-3900 cells/uL N ABSOLUTE MONOCYTES 465 200-950 cells/uL N ABSOLUTE EOSINOPHILS 173 15-500 cells/uL N ABSOLUTE BASOPHILS 68 0-200 cells/uL N NEUTROPHILS 60 N LYMPHOCYTES 30.6 N MONOCYTES 6.2 N EOSINOPHILS 2.3 N BASOPHILS 0.9 N .HEMOGLOBIN A1c (496) Reviewed date:12/13/2024 07:59:33 PM Interpretation: Performing Lab:MISAEL [facility] MonettOkmke25647 [address] Kirk LwkynphGW[address] Merrill Robison Notes/Report: FASTING:YES FASTING: YES HEMOGLOBIN A1c 4.9 <5.7 % of total Hgb N hemoglobin A1c for diagnosis of diabetes in children. diabetes: of diabetes. > or =6.5% Consistent with diabetes guidelines, hemoglobin A1c <7.0% represents optimal Currently, no consensus exists regarding use of metrics may apply to specific patient populations. For the purpose of screening for the presence of According to [place] Diabetes Association (ADA) <5.7% Consistent with the absence of diabetes control in non- diabetic patients. Different This assay result is consistent with a decreased risk (prediabetes) 5.7-6.4% Consistent with increased risk for diabetes Standards of Medical Care in Diabetes(ADA). T4, FREE (866) Reviewed date:12/12/2024 10:05:54 AM Interpretation: Performing Lab:Arthur KENNEY-Mvcyfk58012 Keerthi Gaines[address] Merrill Robison MD Notes/Report: FASTING:YES FASTING: YES T4, FREE 1.3 0.8-1.8 ng/dL N TSH (899) Reviewed date:12/12/2024 10:05:54 AM Interpretation: Performing Lab:Arthur KENNEY-Rdflyh05823 Keerthi Gaines[address] Merrill Robison MD Notes/Report: FASTING:YES FASTING: YES TSH 4.78 H Second trimester 0.55-2.73 Reference Range Third trimester 0.43-2.91 First trimester 0.26-2.66 > or = 20 Years 0.40-4.50 Ranges T3, FREE (00754) Reviewed date:12/12/2024 10:05:54 AM Interpretation: Performing Lab:Arthur KENNEY-Seopxs88313 Keerthi Gaines[address] Merrill Robison MD Notes/Report: FASTING:YES FASTING: YES T3, FREE 2.7 2.3-4.2 pg/mL N TSH Reviewed date:01/18/2024 11:00:41 AM Interpretation: Performing Lab:Arthur KENNEY-[place], [address] [place], [address] Merrill Robison MD Notes/Report: Reference Range > or = 20 Years 0.40-4.50 Ranges First trimester 0.26-2.66 Second trimester 0.55-2.73 Third trimester 0.43-2.91 TSH 3.58 N T4, FREE Reviewed date:01/18/2024 11:00:41 AM Interpretation: Performing Lab:ANNE MARIE Arthur VillarealAubreyHamtramck, Jeremiah GainesANNE MARIE damon, [address] Merrill Robison MD Notes/Report: T4, FREE 1.2 0.8-1.8 ng/dL N LIPID PANEL Reviewed date:01/18/2024 11:00:41 AM Interpretation: Performing Lab:ANNE MARIE Arthur VillarealAubreyMallory, [place], [address] Merrill Robison MD Notes/Report: Reference range: <100 Desirable range <100 mg/dL for primary prevention; <70 mg/dL for patients with CHD or diabetic patients with > or = 2 CHD risk factors. LDL-C is now calculated using the Zurdo-Tanya calculation, which is a validated novel method providing better accuracy than the Friedewald equation in the estimation of LDL-C. Zurdo COTO et al. SUSAN. 2013;310(28): 8047-2636 (http://education.Zazoom/faq/QUN846) For patients with diabetes plus 1 major ASCVD risk factor, treating to a non-HDL-C goal of <100 mg/dL (LDL-C of <70 mg/dL) is considered a therapeutic option. CHOLESTEROL, TOTAL 222 <200 mg/dL H HDL CHOLESTEROL 49 > OR = 50 mg/dL L TRIGLYCERIDES 152 <150 mg/dL H LDL-CHOLESTEROL 145 H CHOL/HDLC RATIO 4.5 <5.0 (calc) N NON HDL CHOLESTEROL 173 <130 mg/dL (calc) H VITAMIN B12/FOLATE, SERUM PA RACIEL Reviewed date:01/18/2024 11:00:41 AM Interpretation: Performing Lab:ANNE MARIE Arthur VillarealАлександрHamtramck, [place], [address] Merrill Robison MD Notes/Report: Reference Range Low: <3.4 Borderline: 3.4-5.4 Normal: >5.4 Please Note: Although the reference range for vitamin B12 is 200-1100 pg/mL, it has been reported that between 5 and 10% of patients with values between 200 and 400 pg/mL may experience neuropsychiatric and hematologic abnormalities due to occult B12 deficiency; less than 1% of patients with values above 400 pg/mL will have symptoms. VITAMIN B12 165 770-7955 pg/mL N FOLATE, SERUM 21.5 N CBC (INCLUDES DIFF/PLT) Reviewed date:01/18/2024 11:00:41 AM Interpretation: Performing Lab:ANNE MARIE [facility] AnalyticsM[place], [address] [place], [address] Merrill Robison MD Notes/Report: For adults, a slight decrease in the calculated MCHC value (in the range of 30 to 32 g/dL) is most likely not clinically significant; however, it should be interpreted with caution in correlation with other red cell parameters and the patient's clinical condition. WHITE BLOOD CELL COUNT 8.4 3.8-10.8 Thousand/uL N RED BLOOD CELL COUNT 4.30 3.80-5.10 Million/uL N HEMOGLOBIN 13.4 11.7-15.5 g/dL N HEMATOCRIT 41.2 35.0-45.0 % N MCV 95.8 80.0-100.0 fL N MCH 31.2 27.0-33.0 pg N MCHC 32.5 32.0-36.0 g/dL N RDW 11.8 11.0-15.0 % N PLATELET COUNT 348 140-400 Thousand/uL N MPV 11.0 7.5-12.5 fL N ABSOLUTE NEUTROPHILS 5737 1164-6836 cells/uL N ABSOLUTE LYMPHOCYTES 2134 850-3900 cells/uL N ABSOLUTE MONOCYTES 412 200-950 cells/uL N ABSOLUTE EOSINOPHILS 76 15-500 cells/uL N ABSOLUTE BASOPHILS 42 0-200 cells/uL N NEUTROPHILS 68.3 N LYMPHOCYTES 25.4 N MONOCYTES 4.9 N EOSINOPHILS 0.9 N BASOPHILS 0.5 N INSULIN Reviewed date:01/18/2024 11:00:41 AM Interpretation: Performing Lab:ANNE MARIE [facility], [address] [place], [address] Merrill Robison MD Notes/Report: Reference Range < or = 18.4 Risk: Optimal < or = 18.4 Moderate NA High >18.4 Adult cardiovascular event risk category cut points (optimal, moderate, high) are based on Insulin Reference Interval studies performed at [facility] in 2021. INSULIN 15.3 N HEMOGLOBIN A1c Reviewed date:01/18/2024 11:00:41 AM Interpretation: Performing Lab:Arthur DOUGLASCox [place], [address] [place], [address] Merrill Robison Notes/Report: For the purpose of screening for the presence of diabetes: <5.7% Consistent with the absence of diabetes 5.7-6.4% Consistent with increased risk for diabetes (prediabetes) > or =6.5% Consistent with diabetes This assay result is consistent with a decreased risk of diabetes. Currently, no consensus exists regarding use of hemoglobin A1c for diagnosis of diabetes in children. According to [place] Diabetes Association (ADA) guidelines, hemoglobin A1c <7.0% represents optimal control in non- diabetic patients. Different metrics may apply to specific patient populations. Standards of Medical Care in Diabetes(ADA). HEMOGLOBIN A1c 5.3 <5.7 % of total Hgb N DHEA SULFATE Reviewed date:01/18/2024 11:00:41 AM Interpretation: Performing Lab:Arthur KENNEY, [address] [place], [address] Merrill Robison MD Notes/Report: DHEA SULFATE 162 19-237 mcg/dL N CORTISOL, TOTAL Reviewed date:01/18/2024 11:00:41 AM Interpretation: Performing Lab:Arthur KENNEY, [address] [place], [address] Merrill Robison MD Notes/Report: Reference Range: For 8 a.m.(7-9 a.m.) Specimen: 4.0-22.0 Reference Range: For 4 p.m.(3-5 p.m.) Specimen: 3.0-17.0 * Please interpret above results accordingly * CORTISOL, TOTAL 21.6 N T3, FREE Reviewed date:01/18/2024 11:00:41 AM Interpretation: Performing Lab:Arthur KENNEY, [address] [place], [address] Merrill Robison MD Notes/Report: T3, FREE 2.9 2.3-4.2 pg/mL N ACTH, PLASMA Reviewed date:01/22/2024 07:58:20 PM Interpretation: Performing Lab:Arthur BATES/Nisa [facility], [address], [place], [address] Kg Martin M.D.,PhD Notes/Report: Reference range applies only to specimens collected between 7am-10am. ACTH, PLASMA 13 6-50 pg/mL COMPREHENSIVE METABOLIC PANE L Reviewed date:01/18/2024 11:00:41 AM Interpretation: Performing Lab:ANNE MARIE [employer]-[place], [address] [address], [place], [address] Merrill Robison MD Notes/Report: Fasting reference interval Not Reported: BUN and Creatinine are within reference range. GLUCOSE 80 65-99 mg/dL N UREA NITROGEN (BUN) 10 7-25 mg/dL N CREATININE 0.77 0.50-0.97 mg/dL N EGFR 104 > OR = 60 mL/min/1.73m2 N BUN/CREATININE RATIO SEE NOTE: 6-22 (calc) SODIUM 139 135-146 mmol/L N POTASSIUM 4.7 3.5-5.3 mmol/L N CHLORIDE 101 98-110 mmol/L N CARBON DIOXIDE 29 20-32 mmol/L N CALCIUM 9.5 8.6-10.2 mg/dL N PROTEIN, TOTAL 7.3 6.1-8.1 g/dL N ALBUMIN 4.3 3.6-5.1 g/dL N GLOBULIN 3.0 1.9-3.7 g/dL (calc) N ALBUMIN/GLOBULIN RATIO 1.4 1.0-2.5 (calc) N BILIRUBIN, TOTAL 0.5 0.2-1.2 mg/dL N ALKALINE PHOSPHATASE 91 31-125 U/L N AST 11 10-30 U/L N ALT 7 6-29 U/L N .CBC (INCLUDES DIFF/PLT) (63 99) Reviewed date:08/17/2024 09:20:00 PM Interpretation: Performing Lab:Arthur KENNEY-Rzbcvm44671 Amanda Moon, MxbnneRR[address] Merrill Robison MD Notes/Report: FASTING:YES FASTING: YES WHITE BLOOD CELL COUNT 6.9 3.8-10.8 Thousand/uL N RED BLOOD CELL COUNT 4.25 3.80-5.10 Million/uL N HEMOGLOBIN 13.4 11.7-15.5 g/dL N HEMATOCRIT 41.0 35.0-45.0 % N MCV 96.5 80.0-100.0 fL N MCH 31.5 27.0-33.0 pg N MCHC 32.7 32.0-36.0 g/dL N interpreted with caution in correlation with other red cell parameters and the patient's clinical condition. not clinically significant; however, it should be value (in the range of 30 to 32 g/dL) is most likely For adults, a slight decrease in the calculated MCHC RDW 11.9 11.0-15.0 % N PLATELET COUNT 311 140-400 Thousand/uL N MPV 11.6 7.5-12.5 fL N ABSOLUTE NEUTROPHILS 3761 9902-6890 cells/uL N ABSOLUTE LYMPHOCYTES 2463 850-3900 cells/uL N ABSOLUTE MONOCYTES 469 200-950 cells/uL N ABSOLUTE EOSINOPHILS 138 15-500 cells/uL N ABSOLUTE BASOPHILS 69 0-200 cells/uL N NEUTROPHILS 54.5 N LYMPHOCYTES 35.7 N MONOCYTES 6.8 N EOSINOPHILS 2.0 N BASOPHILS 1.0 N .LIPID PANEL, STANDARD (7600 ) Reviewed date:08/17/2024 09:20:00 PM Interpretation: Performing Lab:ANNE MARIE, [facility] [employer]-Luwcus05101 Amanda Moon, OdyrcbIG[address] Merrill Robison MD Notes/Report: FASTING:YES FASTING: YES CHOLESTEROL, TOTAL 115 <200 mg/dL N HDL CHOLESTEROL 39 > OR = 50 mg/dL L TRIGLYCERIDES 149 <150 mg/dL N LDL-CHOLESTEROL 53 N with > or = 2 CHD risk factors. Reference range: <100 LDL-C is now calculated using the Zurdo-Martínez calculation, which is a validated novel method providing better accuracy than the Friedewald equation in the <70 mg/dL for patients with CHD or diabetic patients estimation of LDL-C. Desirable range <100 mg/dL for primary prevention; Zurdo SS et al. SUSAN. 2013;310(19): 4105-9981 (http://education.Shopogoliq/faq/LWU621) CHOL/HDLC RATIO 2.9 <5.0 (calc) N NON HDL CHOLESTEROL 76 <130 mg/dL (calc) N factor, treating to a non-HDL-C goal of <100 mg/dL (LDL-C of <70 mg/dL) is considered a therapeutic option. For patients with diabetes plus 1 major ASCVD risk .[facility] ([id number]) [facility] Reviewed date:08/17/2024 09:20:00 PM Interpretation: Performing Lab:ANNE MARIE [employer]-Veeupw05734 Amanda Moon, SqmudnLF[address] Merrill Robison MD Notes/Report: FASTING:YES FASTING: YES GLUCOSE 83 65-99 mg/dL N Fasting refer ence interval UREA NITROGEN (BUN) 7 7-25 mg/dL N CREATININE 0.61 0.50-0.97 mg/dL N EGFR 120 > OR = 60 mL/min/1.73m2 N BUN/CREATININE RATIO SEE NOTE: 6- (calc) reference range. Not Reported: BUN and Creatinine are within SODIUM 139 135-146 mmol/L N POTASSIUM 3.7 3.5-5.3 mmol/L N CHLORIDE 102 98-110 mmol/L N CARBON DIOXIDE 26 20-32 mmol/L N CALCIUM 9.4 8.6-10.2 mg/dL N PROTEIN, TOTAL 6.7 6.1-8.1 g/dL N ALBUMIN 4.2 3.6-5.1 g/dL N GLOBULIN 2.5 1.9-3.7 g/dL (calc) N ALBUMIN/GLOBULIN RATIO 1.7 1.0-2.5 (calc) N BILIRUBIN, TOTAL 0.5 0.2-1.2 mg/dL N ALKALINE PHOSPHATASE 61 31-125 U/L N AST 20 10-30 U/L N ALT 13 6-29 U/L N .[facility] ([id number]) [facility] Reviewed date:05/17/2024 08:04:52 AM Interpretation: Performing Lab:ANNE MARIE [employer]-Gyhymf04029 Amanda Moon, CqvyweBP[address] Merrill Robison MD Notes/Report: FASTING:YES FASTING: YES GLUCOSE 81 65-99 mg/dL N Fasting refer ence interval UREA NITROGEN (BUN) 9 7-25 mg/dL N CREATININE 0.62 0.50-0.97 mg/dL N EGFR 120 > OR = 60 mL/min/1.73m2 N BUN/CREATININE RATIO SEE NOTE: 6-22 (calc) Not Reported: BUN and Creatinine are within reference range. SODIUM 139 135-146 mmol/L N POTASSIUM 4.4 3.5-5.3 mmol/L N CHLORIDE 103 98-110 mmol/L N CARBON DIOXIDE 26 20-32 mmol/L N CALCIUM 9.3 8.6-10.2 mg/dL N PROTEIN, TOTAL 7.4 6.1-8.1 g/dL N ALBUMIN 4.3 3.6-5.1 g/dL N GLOBULIN 3.1 1.9-3.7 g/dL (calc) N ALBUMIN/GLOBULIN RATIO 1.4 1.0-2.5 (calc) N BILIRUBIN, TOTAL 0.6 0.2-1.2 mg/dL N ALKALINE PHOSPHATASE 71 31-125 U/L N AST 32 10-30 U/L H ALT 20 6-29 U/L N .LIPID PANEL, STANDARD (7600 ) Reviewed date:05/17/2024 08:04:52 AM Interpretation: Performing Lab:ANNE MARIE, [employer]-Yubbwq58069 Amanda Moon, HzecbuQW[address] KeilaAlyce Robison MD Notes/Report: FASTING:YES FASTING: YES CHOLESTEROL, TOTAL 214 <200 mg/dL H HDL CHOLESTEROL 40 > OR = 50 mg/dL L TRIGLYCERIDES 187 <150 mg/dL H LDL-CHOLESTEROL 142 H Zurdo SS et al. SUSAN. 2013;310(19): 6968-7872 estimation of LDL-C. with > or = 2 CHD risk factors. <70 mg/dL for patients with CHD or diabetic patients LDL-C is now calculated using the SharonMartínez (http://education.Onefeat.Hail Varsity/faq/ULF376) better accuracy than the Friedewald equation in the Reference range: <100 calculation, which is a validated novel method providing Desirable range <100 mg/dL for primary prevention; CHOL/HDLC RATIO 5.4 <5.0 (calc) H NON HDL CHOLESTEROL 174 <130 mg/dL (calc) H option. For patients with diabetes plus 1 major ASCVD risk (LDL-C of <70 mg/dL) is considered a therapeutic factor, treating to a non-HDL-C goal of <100 mg/dL .CBC (INCLUDES DIFF/PLT) (63 99) Reviewed date:05/17/2024 08:04:52 AM Interpretation: Performing Lab:Arthur KENNEY-Jjxdgi64042 Amanda Moon, DcpfjoZD[address] Merrill Robison MD Notes/Report: FASTING:YES FASTING: YES WHITE BLOOD CELL COUNT 6.4 3.8-10.8 Thousand/uL N RED BLOOD CELL COUNT 4.37 3.80-5.10 Million/uL N HEMOGLOBIN 13.6 11.7-15.5 g/dL N HEMATOCRIT 41.3 35.0-45.0 % N MCV 94.5 80.0-100.0 fL N MCH 31.1 27.0-33.0 pg N MCHC 32.9 32.0-36.0 g/dL N not clinically significant; however, it should be red cell parameters and the patient's clinical condition. interpreted with caution in correlation with other For adults, a slight decrease in the calculated MCHC value (in the range of 30 to 32 g/dL) is most likely RDW 11.5 11.0-15.0 % N PLATELET COUNT 333 140-400 Thousand/uL N MPV 11.7 7.5-12.5 fL N ABSOLUTE NEUTROPHILS 3987 2228-6812 cells/uL N ABSOLUTE LYMPHOCYTES 3962 046-5116 cells/uL N ABSOLUTE MONOCYTES 358 200-950 cells/uL N ABSOLUTE EOSINOPHILS 90 15-500 cells/uL N ABSOLUTE BASOPHILS 38 0-200 cells/uL N NEUTROPHILS 62.3 N LYMPHOCYTES 30.1 N MONOCYTES 5.6 N EOSINOPHILS 1.4 N BASOPHILS 0.6 N .HEMOGLOBIN A1c (496) Reviewed date:05/23/2024 06:01:55 PM Interpretation: Performing Lab:Arthur KENNEY-Wbylqd65493 Amanda Moon, XxfusoGS[address] Merrill Robison MD Notes/Report: FASTING:YES FASTING: YES HEMOGLOBIN A1c 5.1 <5.7 % of total Hgb N control in non- diabetic patients. Different According to [place] [employer] Association (ADA) > or =6.5% Consistent with diabetes This assay result is consistent with a decreased risk of diabetes. (prediabetes) hemoglobin A1c for diagnosis of diabetes in children. 5.7-6.4% Consistent with increased risk for diabetes For the purpose of screening for the presence of metrics may apply to specific patient populations. Currently, no consensus exists regarding use of <5.7% Consistent with the absence of diabetes guidelines, hemoglobin A1c <7.0% represents optimal diabetes: Standards of Medical Care in Diabetes(ADA). INSULIN (561) Reviewed date:05/17/2024 08:04:52 AM Interpretation: Performing Lab:ANNE MARIE [employer]-Ayatjl31592 Amanda Moon, ObeqhcNT[address] Merrill Robison MD Notes/Report: FASTING:YES FASTING: YES INSULIN 12.0 N in 2021. Risk: Adult cardiovascular event risk category Optimal < or = 18.4 Moderate NA High >18.4 are based on Insulin Reference Interval Reference Range < or = 18.4 studies performed at [facility] cut points (optimal, moderate, high) DHEA SULFATE (402) Reviewed date:05/17/2024 08:04:52 AM Interpretation: Performing Lab:ANNE MARIE [employer]-Mtwqsv39218Irvin Moon, RamyvnTN[address] Merrill Robison MD Notes/Report: FASTING:YES FASTING: YES DHEA SULFATE 169 19-237 mcg/dL N VITAMIN B12/FOLATE, SERUM PA RACIEL (9458) Reviewed date:05/17/2024 08:04:52 AM Interpretation: Performing Lab:Arthur KENNEY-Keerthi Singh[address] Merrill Robison MD Notes/Report: FASTING:YES FASTING: YES VITAMIN B12 882 304-6475 pg/mL N Please Note: Although the reference range for vitamin B12 is 200-1100 pg/mL, it has been reported that between 5 and 10% of patients with values between 200 and 400 abnormalities due to occult B12 deficiency; less than 1% of patients with values above 400 pg/mL will have symptoms. pg/mL may experience neuropsychiatric and hematologic FOLATE, SERUM 22.7 N Reference Range Normal: >5.4 Low: <3.4 Borderline: 3.4-5.4 T4, FREE (866) Reviewed date:05/17/2024 08:04:52 AM Interpretation: Performing Lab:ANNE MARIE [employer] [facility]-Graewr01469 Amanda Moon, VrrbssVJ[address] Merrill Robison MD Notes/Report: FASTING:YES FASTING: YES T4, FREE 1.5 0.8-1.8 ng/dL N TSH (899) Reviewed date:05/17/2024 08:04:53 AM Interpretation: Performing Lab:Arthur KENNEYa10101 Jeremiah GainesaKS[address] Merrill Robison MD Notes/Report: FASTING:YES FASTING: YES TSH 0.46 N > or = 20 Years 0.40-4.50 First trimester 0.26-2.66 Second trimester 0.55-2.73 Reference Range Ranges Third trimester 0.43-2.91 T3, FREE (63715) Reviewed date:05/17/2024 08:04:53 AM Interpretation: Performing Lab:Arthur KENNEY [place] Merrill Robison MD Notes/Report: FASTING:YES FASTING: YES T3, FREE 3.1 2.3-4.2 pg/mL N .VITAMIN D,25-OH,TOTAL,IA (1 7306) Reviewed date:05/17/2024 08:04:53 AM Interpretation: Performing Lab:Arthur KENNEYa101Jeremiah SosaaKS[address] Merrill Robison MD Notes/Report: FASTING:YES FASTING: YES VITAMIN D,25-OH,TOTAL,IA 47 30-100 ng/mL N http://education.Zhenai/faq/RVA381 See Note 1 Vitamin D Status 25-OH Vitamin D: For 25-OH Vitamin D testing on patients on Deficiency: <20 ng/mL For additional information, please refer to educational purposes only.) Optimal: > or = 30 ng/mL code 95766 (patients >2yrs). 25-OH VIT D, (D2,D3), LC/MS/MS is recommended: order D2-supplementation and patients for whom quantitation of D2 and D3 fractions is required, the QuestAssureD(TM) (This link is being provided for informational/ Insufficiency: 20 - 29 ng/mL Note 1 ACTH, PLASMA (211) Reviewed date:05/23/2024 06:01:55 PM Interpretation: Performing Lab:Arthur BATES/Nisa BorgesJony [id number], AgpafgsjcTG[address] Kg Martin M.D.,PhD Notes/Report: FASTING:YES FASTING: YES ACTH, PLASMA 10 6-50 pg/mL Reference range applies only to specimens collected between 7am-10am. Reason For Referral No Information Medications Medication SIG (Take, Route, Frequency, Duration) Notes Start Date End Date Status Synthroid 137 MCG Tablet 1 tab(s) orally once a day; Duration: 90 10/31/2023 Active Sertraline HCl 50 mg Tablet TAKE 1 TABLET DAILY Active Norethindrone Active Synthroid 112 MCG Tablet 1 tablet in the morning on an empty stomach Orally Once a day; Duration: 12/21/2024 Active Ondansetron 4 MG Tablet Disintegrating 1 tablet on the tongue and allow to dissolve Orally twice daily as needed; Duration: 08/30/2024 Active Spironolactone 50 mg Tablet TAKE 2 TABLETS DAILY Active Atorvastatin Calcium 20 MG Tablet TAKE 1 TABLET BY MOUTH DAILY; Duration: Active Zepbound 10 MG/0.5ML Solution Auto-injector inject 10mg Subcutaneous once a week; Duration: 10/07/2024 Active metFORMIN HCl ER 500 mg Tablet Extended Release 24 Hour TAKE 1 TABLET DAILY Active dexAMETHasone 1 MG Tablet 1 tablet Orall y at 10 pm night before 8 am cortisol; Duration: 12/21/2024 Active Omeprazole 20 mg Capsule Delayed Release TAKE 1 CAPSULE DAILY Acti ve Social History Social History Additional Details Category Social Info Options Details Migrated Social History Migrated Social History (Alcohol:):yes RARELY (Recreational drug use:):no (Smoking:):no Section Notes: Non-Contributory Non-Contributory Non-Contributory Problems Problem Type SNOMED Code ICD Code Onset Dates Problem Status W/U Status Risk Notes Problem Hypothyroidism (68866194) Hypothyroidism, unspecified (E03.9) Active confirmed Problem Autoimmune thyroiditis (71386583) Autoimmune thyroiditis (E06.3) Active confirmed Problem Polycystic ovary syndrome (disorder) (224746533) Polycystic ovarian syndrome (E28.2) Active confirmed Problem Overweight (138576792) Overweight (E66.3) Active confirmed Problem Obesity (533457777) Obesity, unspecified (E66.9) Active confirmed Problem Mixed hyperlipidemia (474239013) Mixed hyperlipidemia (E78.2) Active confirmed Problem Atopic dermatitis (36878835) Atopic dermatitis, unspecified (L20.9) Active confirmed Problem Body mass index 35.00 to 39.99 (029912979941077) Body mass index [BMI] 39.0-39.9, adult (Z68.39) Active confirmed Vital Signs Heart Rate 72 /min 12/21/2024 Respiratory Rate 12 /min 12/21/2024 Height-cm 180.34 cm 12/21/2024 Oximetry 98 % 12/21/2024 Blood pressure diastolic 61 mm Hg 12/21/2024 Weight-kg 83.46 kg 12/21/2024 Height 71 in 12/21/2024 Blood pressure systolic 89 mm Hg 12/21/2024 Weight 184.0 lbs 12/21/2024 BMI 25.66 kg/m2 12/21/2024 Encounters Encounter Location Date Provider Diagnosis [address] [id number] 12/27/2023 Provider Migration Polycystic ovarian syndrome E28.2 ; Heartburn R12 ; Obesity, unspecified E66.9 and Hypothyroidism, unspecified E03.[address] Maldonado [id number] [place] [phone] 02/02/2024 Gretta Maldonado Polycystic ovarian syndrome E28.2 ; Obesity, unspecified E66.9 ; Hypothyroidism, unspecified E03.9 ; Dietary counseling and surveillance Z71.3 and Mixed hyperlipidemia E78.[address] Maldonado [address] [place] [address] 06/03/2024 Gretta Maldonado Polycystic ovarian syndrome E28.2 ; Hypothyroidism, unspecified E03.9 ; Obesity, unspecified E66.9 ; Mixed hyperlipidemia E78.2 and Dietary counseling and surveillance Z71.[address] Maldonado [address] [place] [address] 08/30/2024 Gretta Maldonado Hypothyroidism, unspecified E03.9 ; Polycystic ovarian syndrome E28.2 ; Overweight E66.3 ; Nausea R11.0 and Dietary counseling and surveillance Z71.[address] 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 Maldonado [address] [place] [phone] 03/10/2024 Gretta Maldonado Obesity, unspecified E66.9 [facility] [address] [place] [phone] 03/11/2024 [facility] [address] [place] [phone] 04/02/2024 Gretta Maldonado Obesity, unspecified E66.9 [facility] [address] [place] [phone] 04/06/2024 Gretta Maldonado Hypothyroidism, unspecified E03.[address] [address] 04/13/2024 Gretta Maldonado Hypothyroidism, unspecified E03.9 [facility] [address] [address] 09/02/[address] Maldonado [address] [place] [phone] 10/07/2024 Gretta Maldonado Assessments Encounter Date Diagnosis (ICD Code) Assessment Notes Treatment Notes Treatment Clinical Notes Section Notes 12/27/2023 Polycystic ovarian syndrome (ICD-10 - E28.2) 12/27/2023 Heartburn (ICD-10 - R12) 01/02/2024 Polycystic ovarian syndrome (ICD-10 - E28.2) 02/02/2024 Polycystic ovarian syndrome (ICD-10 - E28.2) 02/02/2024 Obesity, unspecified (ICD-10 - E66.9) 03/10/2024 Obesity, unspecified (ICD-10 - E66.9) 04/02/2024 Obesity, unspecified (ICD-10 - E66.9) 04/06/2024 Hypothyroidism, unspecified (ICD-10 - E03.9) 04/13/2024 Hypothyroidism, unspecified (ICD-10 - E03.9) 06/03/2024 Polycystic ovarian syndrome (ICD-10 - E28.2) 08/30/2024 Hypothyroidism, unspecified (ICD-10 - E03.9) 08/30/2024 Polycystic ovarian syndrome (ICD-10 - E28.2) 12/21/2024 Polycystic ovarian syndrome (ICD-10 - E28.2) 12/21/2024 Dietary counseling and surveillance (ICD-10 - Z71.3) Spent 15 minutes preventative counseling patient on dietary recommendations and changes in setting of hyperglycemia- need to restrict refined sugars and processed foods and incorporate up to 150 minutes of moderate level activity weekly. 08/30/2024 Overweight (ICD-10 - E66.3) 12/21/2024 Hypothyroidism, unspecified (ICD-10 - E03.9) 06/03/2024 Hypothyroidism, unspecified (ICD-10 - E03.9) 02/02/2024 Hypothyroidism, unspecified (ICD-10 - E03.9) 12/27/2023 Obesity, unspecified (ICD-10 - E66.9) 12/27/2023 Hypothyroidism, unspecified (ICD-10 - E03.9) 02/02/2024 Dietary counseling and surveillance (ICD-10 - Z71.3) 06/03/2024 Obesity, unspecified (ICD-10 - E66.9) 08/30/2024 Nausea (ICD-10 - R11.0) 12/21/2024 Mixed hyperlipidemia (ICD-10 - E78.2) 12/21/2024 Open fracture of right foot with delayed healing, subsequent encounter (ICD-10 - S92.901G) 06/03/2024 Mixed hyperlipidemia (ICD-10 - E78.2) 02/02/2024 Mixed hyperlipidemia (ICD-10 - E78.2) 06/03/2024 Dietary counseling and surveillance (ICD-10 - Z71.3) Spent 15 minutes preventative counseling patient on dietary recommendations and changes in setting of hyperglycemia- need to restrict refined sugars and processed foods and incorporate up to 150 minutes of moderate level activity weekly. 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 02/02/2024 Other Assessment and Plan: 1. Obesity: - Patient has lost 23 pounds since her first visit and 3 pounds since her last visit. - Currently on phentermine; inquired about Zepbound. - Plan: Continue weight loss efforts with a focus on a protein-rich, low-carb, and gluten-free diet. Encourage increased water intake and consider electrolyte supplementation. Monitor weight loss progress and consider Zepbound if weight loss is not achieved with tirzepatide. 2. Hyperlipidemia: - LDL 145, total cholesterol 222, HDL almost 50. - Plan: Recommend fish oil supplements with omega-3 fatty acids, DHA, and EPA. Encourage a heart-healthy diet and regular exercise. Recheck lipid panel in 3 months. 3. Vitamin B12 deficiency: - Patient has been inconsistent with B12 injections. - Plan: Resume B12 injections for increased energy. Recheck B12 levels in 3 months. 4. Hypothyroidism: - Free T4 is 1.2, currently on Synthroid 137 mcg. - Plan: Continue Synthroid at the current dose. Monitor thyroid function tests and adjust the dose as needed. 5. Menstrual irregularities: - Patient cannot have ablation due to a small, retroverted uterus and is too young for a hysterectomy. - Plan: Continue with continuous therapy for irregular, painful periods. Reevaluate treatment options if symptoms worsen or do not improve. 6. Infection causing abnormal endometrial lining growth: - Patient started metronidazole yesterday. - Plan: Complete the course of metronidazole by February 07. Reevaluate if symptoms persist or worsen. Spent 15 minutes preventative counseling patient on dietary recommendations and changes in setting of hyperglycemia- need to restrict refined sugars and processed foods and incorporate up to 150 minutes of moderate level activity weekly. Spent 25 minutes preparing to see the patient (ex review of tests/chart), obtaining and / or reviewing separately obtained history, performing a medically appropriate examination and/or evaluation, counseling and educating the patient/family/manager intensive care, ordering medications, tests, or procedures, referring and communicating with other health healthcare administrator, documenting clinical information in the electronic or other health record, independently interpreting results and communicating results to the patient/family/manager intensive care and care coordinating patient plan. Patient alert and oriented x 4 and aware of discussion noted above and in agreeance to plan in management of obesity/weight management, hypothyroidism, fatigue, PCOS. 06/03/2024 Other Assessment and Plan: 1. Obesity- Patient has a history of severe obesity with a maximum weight of 353 lbs- Underwent gastric sleeve surgery with 110 lbs total weight loss- On Zepbound (GLP-1 receptor agonist) since March 19 with good response- Reports feeling better overall and enjoying day-to-day life- Recent lab results show resolution of insulin resistance and well-controlled PCOS markers- Increase Zepbound dose from 5 mg to 7.5 mg- Continue weight management program- Reassess efficacy and tolerability at next follow-up 2. Hypercholesterolemi a- Recent lab results indicate elevated cholesterol levels- Previously well-controlled cholesterol with recent changes noted- Possible contributing factors include weight loss and potential cortisol issues- Start atorvastatin 20 mg PO daily- Order lipid panel for follow-up- Educate on dietary modifications to support cholesterol management 3. Suspected Hypercortisolism- History of insomnia and occasional panic anxiety attacks (approximately once per month)- Previous consideration for dexamethasone suppression test, not yet performed- Current clinical picture and good response to GLP-1 agonist suggest hypercortisolism is less likely but not entirely ruled out- Prescribe dexamethasone for future suppression test- Defer dexamethasone suppression test for now; consider if weight loss plateaus or symptoms worsen- Monitor for symptoms of hypercortisolism at follow-up visits 4. Polycystic Ovary Syndrome (PCOS)- History of PCOS- Recent lab results show DHEA is not elevated, suggesting PCOS is currently well-controlled- Continue current PCOS management- Monitor PCOS markers in future lab work 5. Insomnia- Reports longstanding insomnia, currently managed with an unspecified sleeping pill- Reports good sleep with current management- Continue current sleep medication regimen- Monitor for any changes in sleep quality or medication efficacy at follow-up visits Spent 25 minutes preparing to see the patient (ex review of tests/chart), obtaining and / or reviewing separately obtained history, performing a medically appropriate examination and/or evaluation, counseling and educating the patient/family/manager intensive care, ordering medications, tests, or procedures, referring and communicating with other health healthcare administrator, documenting clinical information in the electronic or other health record, independently interpreting results and communicating results to the patient/family/manager intensive care and care coordinating patient plan. Patient alert and oriented x 4 and aware of discussion noted above and in agreeance to plan in management of PCOS, hypothyroidism, obesity/weight management, mixed dyslipidemia. 08/30/2024 Other Assessment and Plan: 1. Obesity status post gastric sleeve surgery now just at overweight range-she continues to lose weight consistently around 10 pounds per month for total weight of 140 pounds- Continue semaglutide 7.5 mg as currently prescribed- Reassess dosage and frequency once goal weight is reached- Consider scaling back to 5 mg every 2 weeks or 10-14 days upon reaching goal weight- Follow up in 2 months for reassessment- Encourage continuation of current diet and exercise regimen 2. Dane's thyroiditis- Decrease levothyroxine dose: alternate 137 mcg and 100 mcg daily (equivalent to approximately 112-118 mcg daily)- Repeat thyroid function tests in 2 months- Follow up after lab results for further dose adjustment if needed 3. Hyperlipidemia- Continue current management- Encourage dietary modifications: increase intake of salmon, avocados, and oats- Consider resveratrol supplement- Maintain exercise regimen- Avoid alcohol consumption 4. Diabetes mellitus- Continue current management- Monitor blood glucose levels as previously instructed 5. Travel preparations- Provide medical necessity letter for patient and partner to carry injectable medications during air travel 6. Nausea- Refill ondansetron as previously prescribed Follow-up:- Follow up in 2 months for reassessment Spent 25 minutes preparing to see the patient (ex review of tests/chart), obtaining and / or reviewing separately obtained history, performing a medically appropriate examination and/or evaluation, counseling and educating the patient/family/manager intensive care, ordering medications, tests, or procedures, referring and communicating with other health healthcare administrator, documenting clinical information in the electronic or other health record, independently interpreting results and communicating results to the patient/family/manager intensive care and care coordinating patient plan. Patient alert and oriented x 4 and aware of discussion noted above and in agreeance to plan in management of hypothyroidism, weight management/overweig ht and hx of PCOS. zofran alternate synthroid 100 mcg every other day with 137 mcg every other day continue zepbound 7.5 mg weekly 12/21/2024 Other Michelle is an endocrinology patient with significant weight loss (165 pounds total, 20 pounds recently) on GLP-1 therapy, PCOS, hypothyroidism, and recent foot fracture requiring surgical evaluation. Weight management on GLP-1 therapyAssessment: Patient has achieved remarkable weight loss of 165 pounds from her heaviest weight and recently lost an additional 20 pounds. Currently weighs between 185-190 pounds with 5-10 pound fluctuations. On 10 mg GLP-1 agonist every 2 weeks for the past month, transitioning from 7.5 mg dosing. Weight loss has slowed with current regimen, experiencing hunger in the second week of dosing cycle. Patient reports weight fluctuations of losing 1 pound then gaining 2 pounds the following week. Recent temporary weight loss due to stomach bug has normalized.Plan:- Continue current GLP-1 agonist 10 mg every 2 weeks for weight maintenance with zepbound 10 mg as this is current dose and she is aware to reach out if her weight drops and she wants to drop to 7.5 mg dose instead- Consider probiotic supplementation for GLP-1 related gastrointestinal effects (kiwi-strawberry flavored option available, can be taken every 2-3 days)- Patient may try store-bought probiotic initially PCOS and hyperandrogenismAss essment: Patient has PCOS with facial hair growth currently managed with spironolactone 2 pills daily. With significant weight loss, hormonal profile may have improved and spironolactone dose may be excessive, contributing to low blood pressure. Testosterone levels need reassessment to determine ongoing need for anti-androgen therapy.Plan:- Discontinue spironolactone- Check testosterone levels and other hormone levels- Monitor for return of facial hair growth as indicator of need to resume therapy- Hormones expected to improve with weight loss HypothyroidismAsses sment: Patient was on levothyroxine 137 mcg with abnormal thyroid function tests, leading to alternating dosing with 100 mcg. Patient has run out of lower dose tablets and only has 137 mcg available. Dose adjustment needed for optimal thyroid hormone replacement.Plan:- Change lsynthroid to 112 mcg daily Diabetes managementAssessmen t: Patient currently on metformin with occasional constipation managed with stool softener, increased water intake, and vegetable consumption. Patient desires to switch from Tresiba to Lantus insulin.Plan:- Continue metformin (patient taking one daily)- continue zepbound 10 mg every 2 weeks Recent foot fractureAssessment: Patient broke her foot and requires surgery in 2 weeks. History of previous foot fracture 9 years ago from trauma (dog tripping incident). Current fracture involves bone under ankle. Given history of fractures and significant weight loss, bone density assessment warranted.Plan:- Order bone density scan- Ensure insurance approval for bone density test HypotensionAssessme nt: Patient has low blood pressure, likely related to weight loss and current spironolactone dosing. Does not currently have home blood pressure monitoring capability.Plan:- Discontinue spironolactone- Patient to purchase home blood pressure monitor- Monitor blood pressure to ensure it doesn't drop too low InsomniaAssessment: Patient reports insomnia, which may warrant cortisol evaluation to assess for underlying endocrine causes of sleep disturbance.Plan:- Check cortisol levels- Perform dexamethasone suppression test- Check ACTH and DHEA levels- Collect 24-hour urine (molded goods spot picker collection jug from [employer], keep refrigerated, drop off after collection)- Collect saliva samples on Friday and Friday nights (molded goods spot picker collection tubes from [employer]) Excess skin from weight lossAssessment: Patient has excess skin on abdomen, inner thighs, and lower arms following 165-pound weight loss. This affects clothing fit and may increase infection risk, representing functional rather than purely cosmetic concerns.Plan:- Referral to plastic surgeon Danielito Bernal in [place] for evaluation- Insurance coverage may be possible given functional impairment Spent 25 minutes preparing to see the patient (ex review of tests/chart), obtaining and / or reviewing separately obtained history, performing a medically appropriate examination and/or evaluation, counseling and educating the patient/family/manager intensive care, ordering medications, tests, or procedures, referring and communicating with other health healthcare administrator, documenting clinical information in the electronic or other health record, independently interpreting results and communicating results to the patient/family/manager intensive care and care coordinating patient plan. Patient alert and oriented x 4 and aware of discussion noted above and in agreeance to plan in management of hypothyroidism, PCOS, weight management, dyslipidemia, recent fracture/open of right foot and need to screen for hypercortisolism. Plan Of Treatment Pending Test Test Name Order Date Bone Density 12/21/2024 COMPREHENSIVE METABOLIC PANEL 03/17/2023 GAD65, IA-2, AND INSULIN AUTOANTIBODY TESTOSTERONE, TOTAL, LC/MS/MS (FEMALES) 03/17/2023 TESTOSTERONE, TOTAL, LC/MS/MS (FEMALES) 03/31/2023 C-PEPTIDE 03/17/2023 ESTROGEN, TOTAL, SERUM 03/17/2023 HEMOGLOBIN A1c 03/17/2023 INSULIN 03/17/2023 CBC (INCLUDES DIFF/PLT) 03/17/2023 MICROALBUMIN, RANDOM URINE (W/CREATININE ) 03/17/2023 FSH AND LH 03/17/2023 PROGESTERONE 03/17/2023 LIPID PANEL 03/17/2023 Next Appt Details Provider Name:Gretta Maldonado, 09:00:00 AM, [address] [place] [address], [phone], Insurance Providers Payer Name Payer Address Payer Phone Subscriber Number Group Number Insured Name Patient Relationship to Insured Coverage Start Date Coverage End Date [facility] [address] [place] [phone] [id number] Michelle Cavazos Self - patient is the insured [facility] [address] [address] [place] [address] [id number] Michelle Cavazos Self - patient is the insured Medical (General) History Medical History History ICD Code Autoimmune thyroiditis E06.3 Polycystic ovarian syndrome E28.2 Obesity, unspecified E66.9 Surgical History Surgery Date(Month/Year) gastric sleeve 2017 Hospitalization History Reason Date(Month/Year) 2019 GASTRIC SLEEVE 2017
[2024-12-26] MEDS: ONDANSETRON INJ 4 MG/2 ML VIAL IV PUSH (17:50)
[2024-12-26] MEDS: SODIUM CHLORIDE 0.9% IV 1,000 ML 999 ML IV CONT (17:53)
--- NOTE | 2024-12-26 18:41 | PC.NURSE ---
Pt. able to ambulate to the bathroom independently.
[2024-12-26 18:49] LABS: BEDSIDEPREGUCG Negative (Negative)
[2024-12-26 19:13] LABS: Add Urine Microscopic? YES; Appearance Urine Cloudy (Clear); Glucose Urine UA Negative (Negative); Leukocyte Esterase Ur 1+ LEU/UL (Negative); Need Manual Microscopic Reviewed; Nitrate Urine Negative (Negative); Non Pathogenic Casts >20; Specific Grav Ur 1.022 (1.001-1.035)
--- NOTE | 2024-12-26 19:44 | ED.NAVMDI ---
HPI - Nausea/Vomiting/Diarrhea General Chief complaint: Nausea/Vomiting/Diarrhea Stated complaint: n/v/d Time Seen by Provider: 12/26/24 17:01 Source: patient Mode of arrival: ambulatory Limitations: no limitations History of Present Illness HPI Narrative: 34-year-old with the no major medical problems presents to the ER with a complains of sudden onset of nausea, vomiting, diarrhea with abdominal cramping started 2 hours ago. She denies any fevers or chills. The no recent antibiotic. Patient states that she has not eaten any unusual food. MD elicited complaint: nausea, vomiting and diarrhea Onset (ago): hour(s) (2) Description of vomiting: watery Description of diarrhea: watery Location of pain: diffuse Pain consistency: intermittent Related Data Home Medications ?Medication ?Instructions ?Recorded ?Confirmed ?Last Taken ?Type cholecalciferol (vitamin D3) 50 50 mcg DAILY 01/06/22 12/06/23 Unknown History mcg (2,000 unit) capsule (Vitamin D3) cyanocobalamin (vitamin B-12) 1,000 mcg IM WEEKLY 01/06/22 12/06/23 Unknown History 1,000 mcg/mL injection solution folic acid 1 mg tablet 1 mg PO DAILY 01/06/22 12/06/23 Unknown History metformin 500 mg tablet,extended 500 mg PO BID 01/06/22 12/06/23 Unknown History release 24 hr omeprazole 20 mg capsule,delayed 20 mg PO DAILY 01/06/22 12/06/23 Unknown History release sertraline 50 mg tablet 50 mg DAILY 01/06/22 12/06/23 Unknown History spironolactone 50 mg tablet 50 mg PO BID 01/06/22 12/06/23 Unknown History levothyroxine 100 mcg tablet 100 mcg PO DAILY 01/26/22 12/06/23 Unknown History (Synthroid) tacrolimus 0.1 % topical ointment 0.1 applic topical DAILY 12/06/23 12/06/23 Unknown History norethindrone acetate 1 mg-ethinyl tablet 03/20/24 Unknown History estradiol 20 mcg tablet tirzepatide (weight loss) 2.5 mg subcut 03/20/24 Unknown History mg/0.5 mL subcutaneous pen injector (Zepbound) atorvastatin 20 mg tablet mg 07/05/24 Unknown History tirzepatide (weight loss) 5 mg/0.5 mg subcut 07/05/24 Unknown History mL subcutaneous pen injector (Zepbound) Allergies Allergy/AdvReac Type Severity Reaction Status Date / Time No Known Allergies Allergy Verified 07/05/24 14:53 Review of Systems Review of Systems: All systems reviewed & are unremarkable except as noted in HPI and below Constitutional: Constitutional: Reports no additional constitutional complaints Eyes: Eyes: Reports no additional eye complaints ENT: Reports system reviewed and no additional complaints, except as documented Cardiovascular: Cardiovascular: Reports no additional cardiovascular complaints Respiratory: Respiratory: Reports no additional respiratory complaints Gastrointestinal: Gastrointestinal: Reports as per HPI Musculoskeletal: Musculoskeletal: Reports no additional musculoskeletal complaints Integumentary/Breasts: Skin/Breast: Reports system reviewed and no additional complaints, except as docu Neurologic: Reports system reviewed and no additional complaints, except as documented [facility] Family History Family History Grandparent Family history of thyroid disease Family history of lung cancer Family history of malignant neoplasm of breast Family history of congestive heart failure Family history of heart disease in male family member before age 55 Mother Depression Other Family history of malignant neoplasm of male breast Social History Social History Smoking status: Never smoker Alcohol intake: current Exam Narrative: GENERAL: Well-appearing, well-nourished, and in no acute distress. HEAD: Normocephalic, atraumatic. EYES: PERRLA and EOMI. ENT: Nares clear, no rhinorrhea or epistaxis. Mucous membranes moist. NECK: Supple. CHEST: Clear to auscultation. No respiratory distress. HEART: Regular rate and rhythm. No murmur heard. Normal peripheral pulses. ABDOMEN: Soft, nontender, nondistended, normal active bowel sounds. EXTREMITIES: Normal range of motion. No edema. SKIN: Warm, dry, no rash. NEURO: No focal deficits. Alert and oriented x3. PSYCH: Normal mood and affect. Course Course Emergency Course: Patient feeling much better after IV hydration and Zofran. Informed about the lab work including her white count and CT findings. She feels comfortable going home. Advised her to take antibiotic as prescribed. Vital Signs Vital signs: Vital Signs Pulse Rate 136 H 12/26/24 16:44 Respiratory Rate 18 12/26/24 16:44 Blood Pressure 113/83 12/26/24 16:44 Pulse Oximetry 100 12/26/24 16:44 Oxygen Delivery Room Air 12/26/24 16:44 Pulse Rate 136 H 12/26/24 16:44 Respiratory Rate 18 12/26/24 16:44 Blood Pressure 113/83 12/26/24 16:44 Pulse Oximetry 100 12/26/24 16:44 Oxygen Delivery Room Air 12/26/24 16:44 MDM - Nausea/Vomiting/Diarrhea MDM Narrative Medical decision making narrative: 34-year-old relatively healthy here with a complains of sudden onset of nausea, vomiting, abdominal pain with some diarrhea within hydrate her with normal saline, controller nausea with IV Zofran obtain lab work and CT findings. Differential Diagnosis Differential diagnosis: Likely food poisoning, gastroenteritis and dehydration Medical Records Attestation: I reviewed the patient's medical records. Lab Data Attestation: I reviewed the patient's lab results. 12/26/24 16:54 12/26/24 16:54 Labs: Lab Results 12/26/24 12/26/24 12/26/24 Range/Units 16:54 18:46 18:47 WBC 33.6 H (4.5-10.0) K/mm3 RBC 4.90 (4.2-5.4) M/mm3 Hgb 15.4 H (12.0-15.0) g/dL Hct 47.1 H (37.0-47.0) % MCV 96.1 (80-100) fl MCH 31.4 (26-34) pg MCHC 32.7 (32-36) g/dl RDW 12.2 (11.5-14.5) % Plt Count 452 H (150-375) k/mm3 MPV 10.7 H (7.4-10.4) fl Immature Gran % (Auto) 0.7 H (0-0.5) % Neut % (Auto) 86.1 H (45.5-73.1) % Lymph % (Auto) 9.0 L (18.3-44.2) % [place] % (Auto) 3.5 (2.6-8.5) % Eos % (Auto) 0.3 (0-4.4) % Baso % (Auto) 0.4 (0.2-1.2) % Lymph # (Auto) 3.03 (0.9-3.2) K/mm3 Sherman # (Auto) 1.2 H (0.1-0.6) K/mm3 Eos # (Auto) 0.1 (0-0.3) K/mm3 Baso # (Auto) 0.1 (0.0-0.1) K/mm3 Abs Immat Gran (auto) 0.22 H (0.00-0.031) K/mm3 Absolute Neuts (auto) 29.0 H (1.3-6.7) K/mm3 Absolute Nucleated RBC 0.000 (0.0-0.012) K/mm3 Nucleated RBC % 0.0 (0.0-0.2) % Sodium 137 (137-145) mmol/L Potassium 3.9 (3.4-5.0) mmol/L Chloride 101 (98-107) mmol/L Carbon Dioxide 23 (22-30) mmol/L Anion Gap 13 H (4-12) mmol/L BUN 11 (7-17) mg/dL Creatinine 0.92 (0.7-1.0) mg/dL Estim Creat Clear Calc 84 ml/min Estimated GFR > 60 (59 - ) Glucose 128 H (65-110) mg/dL Calcium 10.5 H (8.4-10.2) mg/dL Total Bilirubin 0.7 (0.2-1.3) mg/dL AST 26 (14-36) U/L ALT 12 (6-35) U/L Alkaline Phosphatase 91 (38-126) U/L Total Protein 9.0 H (6.3-8.2) g/dL Albumin 5.0 (3.5-5.1) g/dL Lipase 1233 H (23-300) U/L Urine Color Dark yellow (Yellow) Urine Appearance Cloudy H (Clear) Urine pH 5.5 (5.0-9.0) Ur Specific [place] 1.022 (1.001-1.035) Urine Protein 1+ H (Negative) mg/dL Urine Glucose (UA) Negative (Negative) mg/dL Urine Ketones 1+ H (Negative) mg/dL Ur Blood (Man) Negative (Negative) Urine Nitrate Negative (Negative) Urine Bilirubin Negative (Negative) Urine Urobilinogen 1.0 (<2.0) mg/dL Add Ur Microanalysis Reviewed Leukocyte Esterase Rfl 1+ H (Negative) CASS/UL Urine RBC 3-5 H (0-2) /hpf Urine WBC 11-20 H (0-3) /hpf Ur Squamous Epith Cells Moderate (Few) /hpf Calcium Oxalate Crystal Present (None) /hpf Urine Bacteria Rare /hpf Urine Casts >20 Hyaline Casts Present (None) /lpf Urine Mucus Present /lpf POC Urine HCG, Qual Negative (Negative) Imaging Data Radiologist's impression: ITS Impressions Abdomen/Pelvis CT 12/26/24 19:20 IMPRESSION: 1. Gastritis with probable mild enterocolitis. No perforation or abscess. Discharge Plan Discharge Clinical Impression: Colitis Patient Disposition: Home Condition: Stable Instructions: Colitis (ED) Patient Language: Thai Prescriptions: New ciprofloxacin HCl 500 mg tablet 500 mg PO Q12H Qty: 14 0RF metronidazole 500 mg tablet 500 mg PO Q8H 7 Days Qty: 21 0RF ondansetron 4 mg tablet,disintegrating 4 mg PO Q6-8H PRN (Reason: nausea and vomiting) Qty: 14 0RF No Action cyanocobalamin (vitamin B-12) 1,000 mcg/mL solution 1,000 mcg IM WEEKLY omeprazole 20 mg capsule,delayed release(DR/EC) 20 mg PO DAILY folic acid 1 mg Tablet 1 mg PO DAILY metformin 500 mg tablet extended release 24 hr 500 mg PO BID sertraline 50 mg tablet 50 mg DAILY spironolactone 50 mg tablet 50 mg PO BID cholecalciferol (vitamin D3) [Vitamin D3] 50 mcg (2,000 unit) capsule 50 mcg DAILY tacrolimus 0.1 % ointment 0.1 applic TOPICAL DAILY norethindrone ac-eth estradiol 1-20 mg-mcg tablet Zepbound 2.5 mg/0.5 mL pen injector SUBCUT atorvastatin 20 mg tablet Zepbound 5 mg/0.5 mL pen injector SUBCUT doxycycline monohydrate 100 mg tablet 100 mg PO BID Qty: 14 0RF levothyroxine [Synthroid] 100 mcg tablet 100 mcg PO DAILY Follow-up/Referrals: PHYSICIAN,PROPERTY INVESTOR [Primary Care Provider, Internal Medicine] Brock Bergeron MD [Physician, Family Practice]
== END 2024-12-26 20:34 | disposition home or self-care (01) ==
PROVIDERS: Student in an Organized Health Care Education/Training Program; Emergency Provider Family Medicine
DX: K52.9 Noninfective gastroenteritis and colitis, unspecified (principal); Z79.85 Long-term (current) use of injectable non-insulin antidiabetic drugs
CPT/HCPCS: 36415; 74177; 80053; 81001; 81025; 83690; 85025; 96361; 96374; 96375; 99284; J1200; J2405; J2765; J7030; Q9967